=== PATIENT | female | born 1945 | race Caucasian/White ===

== ENCOUNTER → 2023-07-10 06:28 | Day surgery (SDC) | payer MEDICARE, BC, SELFPAY | LOC: GI 06:28 | PROVIDERS: ATTENDING PHYSICIAN Internal Medicine | DX: K29.50 Unspecified chronic gastritis without bleeding (principal); K22.89 Other specified disease of esophagus; K44.9 Diaphragmatic hernia without obstruction or gangrene; K31.7 Polyp of stomach and duodenum; K31.89 Other diseases of stomach and duodenum; R10.13 Epigastric pain | CPT/HCPCS: 43239; 88305; 88342 ==

== ENCOUNTER 2023-07-12 15:32 | Inpatient (IN) | payer MEDICARE, BC, SELFPAY ==
[2023-07-12] VITALS (15 sets, daily range): BP systolic 100–164; BP diastolic 59–115; BMI 33.8; BMI 33.1
--- NOTE | 2023-07-12 12:53 | ED.GENMED ---
History of Present Illness
General
Chief Complaint: Heart Rate Problem
Source: patient and family
Exam Limitations: none
Time Seen by Provider: 07/12/23 12:46
Nursing documentation reviewed up to this point in time: agreed with
Travel History
Have you had any contact with someone who has COVID-19?: No
Do you have any symptoms of coronavirus? Fever > 100 degrees, chills, cough, shortness of breath, sore throat, loss of taste or smell, muscle aches, or headache?: No
History of Present Illness
History of Present Illness:
78-year-old female pacemaker A-fib on Eliquis COPD as needed home oxygen recent upper endoscopy was off her Eliquis for 5 days next day developed cough fever [place] PCP office was febrile rapid A-fib pulse ox 88% referred here
Past History
Past History
ED Past Medical History: Arrthythmia (Paroxysmal atrial fibrillation), CHF, COPD, CVA (with L facial droop, garbled speech), GERD, HTN, Hypercholesterolemia, Psychiatric (Anxiety, Depression) and Other (Hepatic cyst resection, bile duct leak,
pleural effusion, spinal stenosis, osteopenia, adrenal adenoma, skin cancer, Pneumonia)
ED Past Surgical History: Cholecystectomy, Gynecological and Other (liver cyst removed with portion of liver removed, Pancreatic stents)
Social History
Tobacco: Former smoker
Alcohol: Occasional
Drug: None
Personal:
Living: with family
Employment: Retired
Family History
Family History: Other (Noncontributory)
Review of Systems
Review of Systems
All Other Systems: Not applicable
Constitutional: Reports fever and fatigue
Respiratory: Reports cough and trouble breathing
Cardiac: Reports palpitations
: Reports no symptoms
Musculoskeletal: Reports no symptoms
Skin: Reports no symptoms
Neurological: Reports weakness
Phy Exam
Physical Exam
Physical Exam:
Physical Exam
General: 78-year-old female, ill-appearing coughing tachycardia
Neck: Without jaundice
Heart: Tachycardic
Lungs: Bilaterally rhonchi
Abdomen: Nontender
Neuro: alert and oriented. no focal neurological deficits
Skin: no rash
Psychiatric: well kept. interactive and cooperative
Extremities: no edema. no calf tenderness.
Course
Orders/Labs/Results
Orders:
Orders
07/12/23 12:12
EKG [Electrocardiogram (*1)] Urgent
Reason for Study: Tachycardia
EKG- Treatment ONCE
07/12/23 12:51
Acetaminophen [Tylenol] 650 mg PO NOW STA
Diltiazem HCl [Cardizem] 10 mg IV NOW STA
07/12/23 12:52
Cardiac Monitoring- Treatment ONCE
07/12/23 13:00
Diltiazem 125 mg/125 ml Nss [Cardizem] 125 mg in 125 ml IV PER PROTOCOL
Initial dose in mg/hr, then titrate:: 5
Titrate to keep:: Heart rate 80-100 bpm
Titrate by mg/hr:: 5 mg/hr
Frequency of titrations (minutes):: 15
Maximum dose in mg/hr:: 15
07/12/23 13:07
Complete Blood Count/With Diff Urgent
Comprehensive Metabolic Panel Urgent
Lactic Acid Q4H
Comment: CANCEL 2nd LACTIC ACID IF 1st LACTIC ACID IS LESS THAN 2
Blood Culture Q30M
SVITLANA Source: Blood/Venous
Specimen Description:
07/12/23 13:24
CR Chest Portable - 1 View Urgent
Comment:
Reason For Exam: sob fever hr up
Reason Study Needs to be Portable: Patient Unstable
07/12/23 13:26
Blood Culture Q30M
SVITLANA Source: Blood/Venous
Specimen Description:
07/12/23 13:45
0.9% Sodium Chloride 1000 ml [Nss] 1,000 ml IV BOLUS
Piperacillin/Tazo 3.375 Gram [Zosyn] 3.375 gram in 50 ml IV NOW
07/12/23 17:00
Lactic Acid Q4H
Comment: CANCEL 2nd LACTIC ACID IF 1st LACTIC ACID IS LESS THAN 2
Abnormal Lab Results
07/12/23
13:07
WBC 16.2 H 10^3/uL
(4.8-10.8)
MCHC 32.5 L g/dL
(33.0-37.0)
RDW 14.8 H %
(11.5-14.5)
Abs Immat Gran (auto) 0.1 H 10^3/uL
(0-0.05)
Absolute Neuts (auto) 14.2 H 10^3/uL
(1.4-6.5)
Absolute Lymphs (auto) 0.8 L 10^3/uL
(1.2-3.4)
Absolute Monos (auto) 1.0 H 10^3/uL
(0.1-0.6)
Neutrophils % 87.6 H %
(42.2-75.2)
Lymphocytes % 4.9 L %
(20.5-51.1)
Sodium 134 L mmol/L
(135-145)
Glucose 111 H mg/dl
(70-99)
Alkaline Phosphatase 192 H U/L
(38-126)
07/12/23 13:07
07/12/23 13:07
Vital Signs
Initial and Last Documented VS:
Initial Vital Signs
Temp Pulse Resp BP Pulse Ox
99.5 F 144 18 164/113 91
07/12/23 12:08 07/12/23 12:08 07/12/23 12:08 07/12/23 12:08 07/12/23 12:08
Last Documented Vital Signs
Temp Pulse Resp BP Pulse Ox
99.5 F 121 22 124/85 97
07/12/23 12:08 07/12/23 13:25 07/12/23 13:25 07/12/23 13:25 07/12/23 12:36
MDM/Problems Addressed
Differential Diagnosis Includes:
Pneumonia bronchitis rapid A-fib aspiration heart failure
MDM/Problems Addressed:
Shortness of breath cough fever
Chronic conditions affecting care: Arrhythmia and COPD
Acute Exacerbation and/or Progression of Chronic Illness: Arrhythmia and COPD
*Radiology
Radiology exam reviewed: preliminary read by ED provider
*Pulse Oximetry
Patient hypoxic: yes
*EKG
Interpreted by ED Provider?: Yes
Interpretation: abnormal
Comparison EKG: changes noted
Heart Rate: 128
Rate: tachycardiac
Rhythm: a-fib
Ischemia: non-specific ST changes
*[employer] Interpretation
Rate: tachycardiac
Interpretation: abnormal
Heart Rate: 128
Rhythm: a-fib
*Critical Care Note
Total Time (30-74mins, 75-104mins- exclusive of procedures): 30
Update Note
Update Note:
1:50 PM labs noted chest x-ray noted we will start IV antibiotics cultures have been ordered IV Cardizem has been ordered will require admission
Age hypoxia potential for decompensation
CRITICAL CARE STATEMENT: A total of 30 minutes of critical care time was provided for this patient. This includes management of unstable vital signs, evaluation of the patient at bedside, reviewing the patient's pertinent medical records discussion
with EMS providers and patient's family in addition to discussion with consultants, review of old EKGs and review of pertinent medical records. This time with separate from time utilized to perform the aforementioned documented procedures
ED Attending Note
-
Portions of this chart may have been created with voice recognition software.� Occasional wrong word or��sound alike� substitutions may have occurred due to the inherent limitations of voice recognition software.
Discharge Plan
Departure
Patient Disposition: Admit
Date of Disposition: 07/12/23
Time of Disposition: 13:48
Admit to: Telemetry
Presentation/result/management discussed w/ accepting MD/DO: Hospitalist
Patient with high blood pressure during this ER visit?: No
Condition: Fair
Covid-19: Not Applicable
Discharge Problem:
A-fib, Aspiration pneumonitis
Prescriptions:
No Action
clonazepam 0.5 MG tablet
0.5 mg PO HS
Patient Comments:
04/12/2022: last filled 03/29/22, 30 tabs for 30 days from [facility]
potassium chloride 10 MEQ tablet,ER particles/crystals
10 meq PO BID
atorvastatin 20 MG tablet
20 mg PO DAILY
cholecalciferol (vitamin D3) 1,000 UNITS tablet
1,000 units PO DAILY
calcium carbonate [Antacid (calcium carbonate)] 1 TABLET tablet,chewable
1 tab PO DAILY
acetaminophen [Acetaminophen Extra Strength] 500 mg Tablet
500 mg PO Q6H PRN (Reason: back pain)
famotidine 20 mg Tablet
20 mg PO BID
iron 18 mg Tablet
54 mg PO DAILY
Patient Comments:
time release
Probiotic 15 billion cell Capsule
1 cap PO DAILY
apixaban 5 mg Tablet
5 mg PO BID
gabapentin 300 mg capsule
300 mg PO QID
diltiazem HCl 120 mg capsule,extended release 24hr
120 mg PO DAILY
escitalopram oxalate 20 mg tablet
10 mg PO HS
Spiriva Respimat 2.5 mcg/actuation Mist
2 inh INHALATION R DAILY
Patient Comments:
04/12/2022: Pt was changed from Stiolto Respimat today.
furosemide 20 MG tablet
80 mg PO DAILY
Rx Instructions:
NEW DOSE
levalbuterol tartrate 45 mcg/actuation Hfa Aerosol Inhaler
1 puff INHALATION Q6H PRN (Reason: sob)
metoprolol tartrate 25 mg tablet
25 mg PO DAILY
Interventions
Interventions:
*Risk Screen - Suicide Last Done: 07/12/23 12:08
*General Assessment Last Done: 07/12/23 12:08
*Neglect/Abuse Screening Last Done: 07/12/23 12:08
ED- Fall Risk Assessment Last Done: 07/12/23 13:20
*ED COVID-19 Vaccine History Last Done: 07/12/23 12:08
ED- Cardiac Assessment Last Done: 07/12/23 13:20
ED- Pulmonary Assessment Last Done: 07/12/23 13:20
[2023-07-12] MEDS: TYLENOL 650 MG PO (12:56)
[2023-07-12] MEDS: CARDIZEM 10 MG IV (13:01)
[2023-07-12] MEDS: CARDIZEM 125 IV ×2 (13:06→23:38)
[2023-07-12 13:17] LABS: % Basophils 0.5 % (0-2); % Eosinophils 0.1 % (0-6); % Immature Granulocytes 0.5 % (0-0.5); % Lymphocytes 4.9 % (20.5-51.1); % Monocytes 6.4 % (1.7-9.3); % Neutrophils 87.6 % (42.2-75.2); Absolute Basophils 0.1 10^3/uL (0-0.2); Absolute Immature Granulocytes 0.1 10^3/uL (0-0.05); Absolute Lymphocytes 0.8 10^3/uL (1.2-3.4); Absolute Neutrophils 14.2 10^3/uL (1.4-6.5); Hematocrit 43.7 % (37.0-47.0); Hemoglobin 14.2 g/dL (12.0-16.0); Mean Corp Hgb Conc. 32.5 g/dL (33.0-37.0); Mean Platelet Volume 9.3 fL (7.4-10.4); Nucleated Red Blood Cells % 0 %; Platelet Count 228 10^3/uL (130-400); Red Blood Cell Count 5.08 10^6/uL (4.20-5.40); Red Cell Dist. Width 14.8 % (11.5-14.5); White Blood Cell Count 16.2 10^3/uL (4.8-10.8)
[2023-07-12 13:31] LABS: Lactic Acid 1.2 mmol/L (0.7-2.0)
[2023-07-12 13:32] LABS: ALT (SGPT) 23 U/L (0-35); AST (SGOT) 35 U/L (14-36); Albumin 3.9 g/dl (3.5-5.0); Alkaline Phosphatase 192 U/L (38-126); Blood Urea Nitrogen 11 mg/dl (7-17); Calcium 8.7 mg/dl (8.4-10.2); Carbon Dioxide 30 mmol/L (22-30); Chloride 100 mmol/L (98-107); Estimated Creatinine Clearance 56 ml/min; Glucose 111 mg/dl (70-99); Potassium 3.6 mmol/L (3.5-5.1); Sodium 134 mmol/L (135-145); Total Bilirubin 1.2 mg/dl (0.2-1.3); Total Protein 7.1 g/dl (6.3-8.2); eGFR > 60.00
[2023-07-12] MEDS: ZOSYN 50 IV (13:58)
[2023-07-12] MEDS: NSS 1000 IV (13:58)
--- NOTE | 2023-07-12 14:44 | HPS.HSE ---
Addendum entered and electronically signed by Ronald Vargas MD 07/12/23 16:13:
78-year-old female with a past medical history of atrial fibrillation on Eliquis, COPD requiring 2 L of oxygen at night, diastolic CHF, hypertension, CVA, gastroesophageal reflux disease, and anxiety/depression was sent by her PCP for rapid atrial
fibrillation. Patient went to her PCP today for persistent cough that was productive of yellow to dark brown sputum. Associate symptoms include low-grade fever, headache.
She does have a leukocytosis, with low-grade fever.
Portable chest x-ray in the ER is negative. She is COVID-negative, influenza negative.
Will check two-view chest x-ray, procalcitonin, sputum culture and Gram stain.
Her heart rate has improved on Cardizem drip.
Appreciate cardiology input, recommend continuing her Lopressor.
I have personally seen and examined the patient, and agree with the plan of care as documented by FINN Alcala.
Advance care planning discussed, patient is a full code.
All other issues as outlined by the advanced care practitioner.
Total time spent to see the patient on the floor, examine the patient, review data and lab results, discuss treatment plan with patient, nursing staff around 75 minutes.
Original Note:
Family Physician
-
Family Physician: FINN Ma
Chief Complaint
-
cough
fever
History of Present Illness
78-year-old with past medical history for paroxysmal A-fib, CHF, COPD, CVA, GERD, hypertension, hyperlipidemia, anxiety, depression presented to us with cough associated with fever, generalized weakness since yesterday. Patient could not sleep last
night due to the cough. It was a constant productive cough with yellowish to dark brown sputum. Stated some headache. She had a low-grade temp of 99 at home. Denied chest pain or short of breath. Patient denied any dizzy or syncopal episode.
Patient denied any palpitation. Patient denied any abdominal pain, nausea, vomiting. She stated multiple episodes of diarrhea yesterday. Denied dysuria hematuria.
On arrival patient was noted in A-fib with RVR. Initiated on Cardizem. Chest x-ray with no acute disease. Noted elevated WBCs patient is initiated on IV antibiotics. Admitting for further management
Medical History
Past Medical History
Past Medical History: Reports Other
Additional Past Medical History:
paroxysmal atrial fibrillation
, possible sick sinus syndrome,
CHF
, COPD on 2 L of oxygen,
CVA
hypertension
GERD
hypercholesteremia
anxiety/depression
spinal stenosis
adrenal adenoma
skin cancer,
GI bleeding/gastric ulcer
Past Surgical History: Reports Other
Additional Past Surgical History:
Cholecystectomy
Liver cyst removed
Pancreatic stents
Cardiac ablation
Social History
Tobacco: Former Smoker
Alcohol: Occasional
Drug: None
Personal: Single
Living: Alone
Family History
Family History: Not pertinent
Allergies / Home Medications
Allergies reflects when Allergies were last updated in [facility].
Home Medications with original date entered in [facility]
Allergy/Medication List:
Allergies
Allergy/AdvReac Type Severity Reaction Status Date / Time
adhesive Allergy Rash Verified 07/12/23 12:08
alendronate sodium Allergy Shortness Verified 07/12/23 12:08
[From Fosamax] of
Breath/CHEST
PAIN
propafenone Allergy Unknown Verified 07/12/23 12:08
Home Medications
clonazepam 0.5 mg tablet 0.5 mg PO HS Mental Health/Anxiety 09/12/18
potassium chloride 10 mEq tablet,extended release(part/cryst) 10 meq PO BID Electrolyte Repletion 09/12/18
atorvastatin 20 mg tablet 20 mg PO QPM High cholesterol 10/27/21
calcium carbonate 200 mg calcium (500 mg) chewable tablet (Antacid (calcium carbonate)) 2 tab PO BID@0800,1730 Supplement 10/27/21
cholecalciferol (vitamin D3) 25 mcg (1,000 unit) tablet 1,000 units PO DAILY Supplement 10/27/21
Lactobacillus acidophilus and rhamnosus 15 billion cell capsule (Probiotic) 1 cap PO DAILY Supplement 01/02/22
acetaminophen 500 mg tablet (Acetaminophen Extra Strength) 500 mg PO Q6H PRN back pain 01/02/22
famotidine 20 mg tablet 20 mg PO BID Gastrointestinal issue 01/02/22
iron 18 mg tablet 54 mg PO DAILY Supplement 01/02/22
apixaban 5 mg tablet 5 mg PO BID Blood clot prevention/tx 02/12/22
diltiazem HCl 120 mg capsule,extended release 24 hr 120 mg PO DAILY Arrhythmia 04/12/22
furosemide 20 mg tablet 80 mg PO DAILY Fluid retention/Swelling 04/12/22
gabapentin 300 mg capsule 600 mg PO HS Pain 04/12/22
tiotropium bromide 2.5 mcg/actuation mist for inhalation (Spiriva Respimat) 2 inh inhalation R DAILY Lung/breathing issues 04/12/22
escitalopram oxalate 10 mg tablet 10 mg PO DAILY 07/12/23
levalbuterol tartrate 45 mcg/actuation aerosol inhaler 2 puff inhalation R Q6 PRN sob/wheezing 07/12/23
metoprolol tartrate 25 mg tablet 25 mg PO DAILY 07/12/23
varenicline 0.03 mg/spray nasal spray (Tyrvaya) 1 spray intranasal DAILY 07/12/23
Review of Systems
-
Constitutional: Reports No Symptoms and Fever
EENT: Reports No Symptoms
Respiratory: Reports Cough (Productive with dark brown sputum)
Cardiac: Reports No Symptoms
Abdomen/GI: Reports No Symptoms
: Reports No Symptoms
Musculoskeletal: Reports No Symptoms
Skin: Reports No Symptoms
Neurological: Reports No Symptoms
Endocrine: Reports No Symptoms
Hematologic/Lymphatic: Reports No Symptoms
Psych: Reports No Symptoms
Physical Exam
Vital Signs
Vital Signs
Temp Pulse Resp BP Pulse Ox
99.5 F 112 22 116/78 97
07/12/23 12:08 07/12/23 14:20 07/12/23 14:20 07/12/23 14:20 07/12/23 12:36
Physical Exam
General: Well Developed, Well Nourished and No Apparent Distress
HEENT: NormoCephalic, Moist mucous membranes and Atraumatic
Respiratory: Rhonchi
Cardiac: Irregular Rhythm and Tachycardia; No Murmur or Rub
GI: Soft, Non Tender, Non Distended and Normal Bowel Sounds; No Organomegaly
Rectal: Deferred by Provider
Musculoskeletal: No Clubbing, No Cyanosis and No Edema
Skin: No Rash
Neuro: AO x 3 and Nonfocal/grossly intact
Psych: Calm
Laboratory Results
-
07/12/23 13:07
07/12/23 13:07
Laboratory Results
Lactic Acid Cancelled 07/12/23 17:00
Total Bilirubin 1.2 mg/dl (0.2-1.3) 07/12/23 13:07
AST 35 U/L (14-36) 07/12/23 13:07
ALT 23 U/L (0-35) 07/12/23 13:07
Alkaline Phosphatase 192 U/L (38-126) H 07/12/23 13:07
Data Reviewed
-
Diagnostic Radiology: Report Reviewed by me
Lab Data: Labs Reviewed by me
Impression/Plan
-
# Fever/cough likely aspiration pneumonitis/acute on chronic respiratory failure from COPD
-Patient noted any COPD exacerbation
-She was 88 on room air
-At present requiring 2 L of oxygen
-She uses 2 L of oxygen as needed at home
-WBC 16.2
-Chest x-ray with no acute cardiopulmonary process
-Blood culture sent from ER
-Received Zosyn in ER
-Will monitor off antibiotics
-Obtain Pro-Nas
-ipratropium bid ad zopinex bid
-Speech consulted
-PT/OT consulted
# Atrial flutter with RVR
-EKG with a flutter with variable AV block, nonspecific ST and T wave abnormality. Atrial flutter with RVR status post cardioversion� in ER and subsequently admitted
#Post Cardioversion Pauses secondary to sick sinus syndrome>> now status post permanent pacemaker
-Eliquis continued
-Cardizem drip continued
-Metoprolol continued
-Cardiology consulted
#History of HFpEF
-Continue Lasix
#COPD
-Baseline 2 L of oxygen
#GERD
-PPI continued
Hyperlipidemia
-Continue statin
Anxiety/depression
-Continue clonazepam
-Continue Lexapro
Spinal stenosis
-Continue gabapentin
Full code
DVT prophylaxis�Eliquis
[2023-07-12 15:40] LABS: COVID-19 Antigen Negative (Negative)
--- NOTE | 2023-07-12 15:50 | CON.CAR ---
Addendum entered and electronically signed by Lobo Suárez MD 07/12/23 16:48:
I saw and examined the patient.
The [employer]'s note was reviewed and I agree with the note.
Comment: 78 yo female with chronic heart failure with preserved EF, hypertension, prior CVA 2016 (She had been off anticoagulation for a period of time during her hospitalizations at [place]), chronic lower extremity edema, persistent atrial
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
by PCP for Afib. She had recent EGD and Eliquis hold, but back on. She has no symptoms of palptitations. ECG with atrial flutter with rvr. On exam irreg irreg rhythm no m/r/g, lungs cta, ext warm. Will continue dilt gtt and transiton to po in
am, if no spontaneous conversion to sinus with offer cardioversion. Will need to interrogate device to determine timing in relation to Eliquis hold. May need GUILLERMO.
Original Note:
Consultation
Consultation Request
Date/Time Consultation Requested: 07/12/23 3:30p
Date/Time Consultation Performed: 07/12/23 3:45p
Requesting Provider: FINN Alcala
Performing Provider: FINN Mas for Dr. Suárez
Reason for Consultation: rapid Afib/flutter
Medical History
-
Chief Complaint: coughing, Afib
History of Present Illness:
Mrs. Rincon is an 78 yo female with chronic heart failure with preserved EF, hypertension, prior CVA 2016 (She had been off anticoagulation for a period of time during her hospitalizations at [place]), chronic lower extremity edema, persistent
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
Afib. She was seen by her PCP today for these complaints and was noted to be in rapid Afib and was sent to the ER. EKG in the ER shows Aflutter 127 bpm. She is admitted to the hospitalist service with leukocytosis and we are consulted for rapid
Afib. She is on a cardizem drip and now rate controlled Afib. She typically takes Eliquis though just had an EGD on 07/10/[address] Alcantara, so she held her Eliquis since 07/06/23.
Past Medical History
Past Medical History: Other ( as above)
Past Surgical History: Cardiac (ppm)
Social History
Tobacco: Non-Smoker
Alcohol: None
Family History
Family History: Reviewed & Not Pertinent
Allergies / Home Medications
Allergy/AdvReac Type Severity Reaction Status Date / Time
adhesive Allergy Rash Verified 07/12/23 12:08
alendronate sodium Allergy Shortness Verified 07/12/23 12:08
[From Fosamax] of
Breath/CHEST
PAIN
propafenone Allergy Unknown Verified 07/12/23 12:08
Medication Instructions Recorded Confirmed Type
clonazepam 0.5 mg tablet 0.5 mg PO HS Mental Health/Anxiety 09/12/18 07/12/23 History
potassium chloride 10 mEq 10 meq PO BID Electrolyte Repletion 09/12/18 07/12/23 History
tablet,extended release(part/cryst)
atorvastatin 20 mg tablet 20 mg PO QPM High cholesterol 10/27/21 07/12/23 History
calcium carbonate 200 mg calcium 2 tab PO BID@0800,1730 Supplement 10/27/21 07/12/23 History
(500 mg) chewable tablet (Antacid
(calcium carbonate))
cholecalciferol (vitamin D3) 25 1,000 units PO DAILY Supplement 10/27/21 07/12/23 History
mcg (1,000 unit) tablet
Lactobacillus acidophilus and 1 cap PO DAILY Supplement 01/02/22 07/12/23 History
rhamnosus 15 billion cell capsule
(Probiotic)
acetaminophen 500 mg tablet 500 mg PO Q6H PRN back pain 01/02/22 07/12/23 History
(Acetaminophen Extra Strength)
famotidine 20 mg tablet 20 mg PO BID Gastrointestinal issue 01/02/22 07/12/23 History
iron 18 mg tablet 54 mg PO DAILY Supplement 01/02/22 07/12/23 History
apixaban 5 mg tablet 5 mg PO BID Blood clot 02/12/22 07/12/23 History
prevention/tx
diltiazem HCl 120 mg 120 mg PO DAILY Arrhythmia 04/12/22 07/12/23 History
capsule,extended release 24 hr
furosemide 20 mg tablet 80 mg PO DAILY Fluid 04/12/22 07/12/23 History
retention/Swelling
gabapentin 300 mg capsule 600 mg PO HS Pain 04/12/22 07/12/23 History
tiotropium bromide 2.5 2 inh inhalation R DAILY 04/12/22 07/12/23 History
mcg/actuation mist for inhalation Lung/breathing issues
(Spiriva Respimat)
escitalopram oxalate 10 mg tablet 10 mg PO DAILY 07/12/23 07/12/23 History
levalbuterol tartrate 45 2 puff inhalation R Q6 PRN 07/12/23 07/12/23 History
mcg/actuation aerosol inhaler sob/wheezing
metoprolol tartrate 25 mg tablet 25 mg PO DAILY 07/12/23 07/12/23 History
varenicline 0.03 mg/spray nasal 1 spray intranasal DAILY 07/12/23 07/12/23 History
spray (Tyrvaya)
Review of Systems
-
History Source: Patient
All other systems: Negative unless noted
Physical Exam
Vital Signs
Temp Pulse Resp BP Pulse Ox
99.5 F 91 20 116/78 97
07/12/23 12:08 07/12/23 15:42 07/12/23 15:42 07/12/23 14:20 07/12/23 12:36
Lab Results
07/12/23 13:07
07/12/23 13:07
Physical Exam
General: Well Developed and Well Nourished
HEENT: Normocephalic and Anicteric
Respiratory: Clear and Non Labored Respirations
Cardiac: S1/S2, Irregular Rhythm and Peripheral Edema (mild b/l LE)
Breast: Deferred by me
GI: Soft and Normal Bowel Sounds
Rectal: Deferred by Provider
Genito-urinary: No Costovertebral Tender
Musculoskeletal: No Clubbing and No Cyanosis
Skin: Warm and Dry
Neuro: AO x 3
Psych: Calm
Impression / Plan
-
Afib/flutter - rapid ventricular response.
- rates improved on IV Cardizem, continue.
- continue outpatient Lopressor 25mg BID.
- continue Eliquis 5mg BID, resumed 07/11/23 (held since 07/06/23 for EGD 07/10/23).
- [facility] to note onset of Afib and burden.
- prior ablation Atach/SVT 01/2022.
- consider GUILLERMO/DCCV Saturday.
Viral illness vs COPD - acute.
- leukocytosis, coughing up mucous.
- CXR NAD.
- per hospitalist.
- follows with Dr. Feliz.
HFpEF - chronic.
- stable on Lasix 80mg daily.
HTN - stable on meds, continue.
Data Reviewed
-
EKG: Tracing Personally Visualized and interpreted
Radiology: Report Reviewed by me
Medical Tests (Nuc Med, Echo etc): Report Reviewed by me (echo 09/2021: normal LVEF, moderate PHTN, pasp 55mmHg.)
Labs: Labs Reviewed by me
Old Records: Reviewed
[2023-07-12 16:27] LABS: Procalcitonin 0.14 ng/ml (0.0-0.25)
[2023-07-12] MEDS: LIPITOR 20 MG PO (18:09)
[2023-07-12] MEDS: TUMS PO (18:10)
[2023-07-12] MEDS: PEPCID 20 MG PO (20:24)
[2023-07-12] MEDS: KCL 10 MEQ PO (20:24)
[2023-07-12] MEDS: ELIQUIS 5 MG PO (20:24)
[2023-07-12] MEDS: LOPRESSOR 25 MG PO (20:24)
[2023-07-12] MEDS: XOPENEX 1.25 MG INHALANT SOLUTION INH (21:36)
[2023-07-12] MEDS: ATROVENT NEBULES 0.5 MG INH (21:36)
[2023-07-12] MEDS: KLONOPIN 0.5 MG PO (22:45)
[2023-07-12] MEDS: NEURONTIN 600 MG PO (22:45)
--- NOTE | 2023-07-12 23:10 | PTCARENOTE ---
Pt rec'd at change of shift awake,alert no c/o pain. Coarse breath sounds with exp wheeze throughout. o2 at 2 lit n/c continued. Pt reports having loose stool at change of shift, daughter had helped her in bathroom. pt made aware of need to obtain
stool and rsp cultures.
collection hat placed in bathroom. Pt remains afib/flutter on Cardizem gtt at 10 mg/hr. call alexandre within reach.
[2023-07-13] VITALS (15 sets, daily range): BP systolic 82–119; BP diastolic 51–99; PULSE 65; O2SAT 94; BMI 33.1
--- NOTE | 2023-07-13 05:16 | PTCARENOTE ---
No bm's since beginning of shift. Pt aware of need for stool and urine specimen. Pt reports sleeping on and off minimal coughing noted.
afib on telemetry
[2023-07-13 05:37] LABS: Hematocrit 38.6 % (37.0-47.0); Hemoglobin 12.6 g/dL (12.0-16.0); Mean Corp Hgb Conc. 32.6 g/dL (33.0-37.0); Mean Corpuscular Hgb 28.5 pg (27.0-31.0); Mean Corpuscular Volume 87.3 fL (81.0-99.0); Mean Platelet Volume 9.8 fL (7.4-10.4); Platelet Count 214 10^3/uL (130-400); Red Blood Cell Count 4.42 10^6/uL (4.20-5.40); Red Cell Dist. Width 14.9 % (11.5-14.5); White Blood Cell Count 14.3 10^3/uL (4.8-10.8)
[2023-07-13 05:54] LABS: Blood Urea Nitrogen 12 mg/dl (7-17); Carbon Dioxide 30 mmol/L (22-30); Chloride 104 mmol/L (98-107); Estimated Creatinine Clearance 62 ml/min; Glucose 83 mg/dl (70-99); Potassium 3.2 mmol/L (3.5-5.1); Sodium 137 mmol/L (135-145); eGFR > 60.00
[2023-07-13] MEDS: XOPENEX 1.25 MG INHALANT SOLUTION INH ×3 (07:42→19:44)
[2023-07-13] MEDS: ATROVENT NEBULES 0.5 MG INH ×3 (07:42→19:44)
[2023-07-13] MEDS: TUMS PO (08:24)
[2023-07-13] MEDS: FEOSOL 325 MG PO (08:25)
[2023-07-13] MEDS: KCL 10 MEQ PO ×2 (08:25→19:38)
[2023-07-13] MEDS: LASIX 80 MG PO (08:25)
[2023-07-13] MEDS: LOPRESSOR 25 MG PO ×2 (08:25→20:26)
[2023-07-13] MEDS: PEPCID 20 MG PO ×2 (08:25→19:39)
[2023-07-13] MEDS: LEXAPRO 10 MG PO (08:25)
[2023-07-13] MEDS: ELIQUIS 5 MG PO ×2 (08:25→19:38)
--- NOTE | 2023-07-13 08:32 | W.PN.CD ---
Addendum entered and electronically signed by Lobo Suárez MD 07/13/23 12:41:
[facility] shows 51 hours during eliquis hold for EGD, now in it for the last 3 days. Will need charity/dccv saturday if still in rhythm will add to schedule and make NPO p midnight.
Original Note:
Today's Communication / Plan
-
transition to po diltiazem
[facility] for onset of fib
may need dccv +/- charity on Saturday
Impression / Plan
-
Afib/flutter - rapid ventricular response.
- rates improved on IV Cardizem, tranistion to 60mg qid which will be an increase of her home 120mg daily dose
- continue outpatient Lopressor 25mg BID.
- continue Eliquis 5mg BID, resumed 07/11/23 (held since 07/06/23 for EGD 07/10/23).
- [facility] to note onset of Afib and burden.
- prior ablation Atach/SVT 01/2022.
- consider DCCV +/-CHARITY Saturday.
HFpEF - chronic.
- stable on Lasix 80mg daily.
Viral illness vs COPD - acute.
-quite rhoncherous and wheezy today
- leukocytosis, coughing up mucous.
- per hospitalist.
- follows with Dr. Feliz.
HTN - stable on meds, continue.
Subjective
No palps or cp, +cough productive of sputum, feels jittery after neb
Physical Exam
Vital Signs/Labs
Vital Signs
Temp Pulse Resp BP Pulse Ox
98.0 F 105 16 111/99 95
07/13/23 07:09 07/13/23 08:25 07/13/23 07:45 07/13/23 08:25 07/13/23 07:45
07/12/23 07/13/23 07/14/23
06:59 06:59 06:59
Actual Weight 90.3 kg
07/13/23 04:59
07/13/23 04:59
Physical Exam
Constitutional: No acute distress
Cardiovascular: Pedal edema is absent, JVD pressure is normal, Systolic murmur absent, Diastolic murmur absent and Rhythm/rate is irregular
Respiratory: Respiratory effort normal, Wheeze Present and Rhonchi Present
GI: Soft
Neuro/Psych: AO x 3
Data Reviewed
-
Date of Service: July 13, 2023
EKG: Other (tele af with rate control)
Medical Tests (PFT, Pathology etc): Discussed with Physician (transition to po dilt, may need cardioversion saturday) and Discussed with Nurse (Marly stop dilt ggt 1 hour after po dose)
--- NOTE | 2023-07-13 09:19 | PTCARENOTE ---
Addendum entered by Marly Wang RN 07/13/23 09:42:
K 3.2 supplemented as ordered.
Original Note:
urine and stool sent to lab as ordered.D/C'd IV Cardizem drip as per ordered and po Cardizem started.
[2023-07-13] MEDS: CARDIZEM 60 MG PO ×4 (09:25→22:10)
[2023-07-13] MEDS: KCL 40 MEQ PO ×2 (09:41→17:40)
[2023-07-13 10:40] LABS: Urine Albumin Trace (Neg - Trace); Urine Bilirubin 1+ (Negative); Urine Character Clear (Clear); Urine Color Yellow; Urine Glucose Negative (Negative); Urine Ketone Negative (Negative); Urine Leukocyte Trace (Negative); Urine Nitrite Negative (Negative); Urine Occult Blood Negative (Negative); Urine Specific Gravity 1.015 (<1.030); Urine Urobilinogen 3+ (Neg - 1+)
[2023-07-13 11:22] LABS: Urine Amorphous Seen; Urine Mucus Few
[2023-07-13 11:23] LABS: Urine Urothelial Cell 0-2 /LPF (FEW)
[2023-07-13 11:24] LABS: Urine Bacteria Few (Negative); Urine Red Blood Cell 0-2 /HPF (0-2)
--- NOTE | 2023-07-13 14:20 | W.PN.HOSP.TC ---
Today's Communication/Plan
-
see bold
Assessment / Plan
Assessment / Plan
HPI: 78-year-old female with a past medical history of atrial fibrillation on Eliquis, COPD requiring 2 L of oxygen at night, diastolic CHF, hypertension, CVA, gastroesophageal reflux disease, and anxiety/depression was sent by her PCP for rapid
atrial fibrillation.� Patient went to her PCP today for persistent cough that was productive of yellow to dark brown sputum.� Associate symptoms include low-grade fever, headache.
#Rapid atrial flutter
Appreciate cardiology input, status post IV diltiazem
Changed to oral diltiazem today, continue metoprolol tartrate 25 mg twice a day
Continue Eliquis, for possible cardioversion on Saturday
#Acute bronchitis
Chest x-ray negative, influenza negative, COVID-negative
Status post Zosyn in the ER
Procalcitonin negative, monitor off of antibiotics
Continue cough meds prn, supportive care
#Hypokalemia
Replete, recheck a.m. potassium and magnesium
#History of HFpEF
-Continue Lasix, monitor daily weights, strict I's and O's
#COPD
-Baseline 2 L of oxygen
#GERD
-PPI continued
Hyperlipidemia
-Continue statin
Anxiety/depression
-Continue clonazepam
-Continue Lexapro
Spinal stenosis
-Continue gabapentin
DVT prophylaxis�Eliquis
Full Code
Physical Exam
General: Apepars to not feel well, obese, no acute distress
HEENT: Normocephalic, Atraumatic, EOMI, MMM
Respiratory: Bibasilar crackles
Cardiac: Normal S1/S2, Regular Rate, irregularly irregular rhythm
GI: Soft, Nontender, Nondistended, Normal Bowel Sounds
Extremities: No Clubbing, Cyanosis, or Edema
Anticipated Discharge: > 48 hours
Subjective/Interval History
-
Date of Service: July 13, 2023
Fever resolved. Patient continues to have a productive cough.
Objective Data
-
Labs:
Laboratory Results
07/13/23
04:59
WBC 14.3 H
Hgb 12.6
Hct 38.6
Plt Count 214
Sodium 137
Potassium 3.2 L
Chloride 104
Carbon Dioxide 30
BUN 12
Creatinine 0.8
Glucose 83
Calcium 8.0 L
Vital Signs:
Vital Signs
Temp Pulse Resp BP Pulse Ox
98.7 F 75 16 112/93 94
07/13/23 11:02 07/13/23 14:15 07/13/23 14:15 07/13/23 13:48 07/13/23 14:15
I&O
07/12/23 07/13/23 07/14/23
06:59 06:59 06:59
Output Total 350 / 350 200 / 200
Balance -350 / -350 -200 / -200
[2023-07-13] MEDS: LIPITOR 20 MG PO (17:40)
[2023-07-13] MEDS: TUMS 2 TABLET PO (17:41)
--- NOTE | 2023-07-13 18:09 | PTCARENOTE ---
pt continues to be Afib/ paced on the monitor, HR in the 80s, VSS. Pt offers no complaints at this time. Pt has been ambulating in the room with no issues. pt educated on plan of care for the night and pt verbalized understanding. call alexandre within
reach.
--- NOTE | 2023-07-13 21:21 | PTCARENOTE ---
Received pt at handoff. AOX3. Tele- Afib/flutter. HR 70-80s. Assessment noted as documented. Pt w/ exp wheeze and coarse t/o. Pt sating at 95-97% on 2L O2 nasal cannula. Offers no complaints at this time. Pt educated on plan of care. Verbalizes
understanding. Pt currently in bed; call alexandre w/in reach.
[2023-07-13] MEDS: NEURONTIN 600 MG PO (22:09)
[2023-07-13] MEDS: KLONOPIN 0.5 MG PO (22:09)
[2023-07-14 03:56] VITALS: BP 104/68
[2023-07-14 04:37] LABS: Hematocrit 35.9 % (37.0-47.0); Hemoglobin 11.8 g/dL (12.0-16.0); Mean Corp Hgb Conc. 32.9 g/dL (33.0-37.0); Mean Corpuscular Hgb 27.7 pg (27.0-31.0); Mean Corpuscular Volume 84.3 fL (81.0-99.0); Mean Platelet Volume 9.7 fL (7.4-10.4); Platelet Count 239 10^3/uL (130-400); Red Blood Cell Count 4.26 10^6/uL (4.20-5.40); Red Cell Dist. Width 15.4 % (11.5-14.5); White Blood Cell Count 10.7 10^3/uL (4.8-10.8)
[2023-07-14 04:59] VITALS: BMI 33.3
[2023-07-14 05:06] LABS: Blood Urea Nitrogen 20 mg/dl (7-17); Calcium 8.6 mg/dl (8.4-10.2); Carbon Dioxide 27 mmol/L (22-30); Chloride 105 mmol/L (98-107); Estimated Creatinine Clearance 56 ml/min; Glucose 85 mg/dl (70-99); Magnesium 2.1 mg/dl (1.6-2.3); Potassium 4.4 mmol/L (3.5-5.1); Sodium 136 mmol/L (135-145); eGFR > 60.00
[2023-07-14] MEDS: XOPENEX 1.25 MG INHALANT SOLUTION INH ×3 (07:56→20:53)
[2023-07-14] MEDS: ATROVENT NEBULES 0.5 MG INH ×3 (07:56→20:53)
[2023-07-14 08:30] VITALS: BP 103/62
--- NOTE | 2023-07-14 09:08 | W.PN.HOSP.TC ---
Today's Communication/Plan
-
For cardioversion tomorrow
Assessment / Plan
Assessment / Plan
HPI: 78-year-old female with a past medical history of atrial fibrillation on Eliquis, COPD requiring 2 L of oxygen at night, diastolic CHF, hypertension, CVA, gastroesophageal reflux disease, and anxiety/depression was sent by her PCP for rapid
atrial fibrillation.� Patient went to her PCP today for persistent cough that was productive of yellow to dark brown sputum.� Associate symptoms include low-grade fever, headache.
#Rapid atrial flutter
Appreciate cardiology input, status post IV diltiazem
Changed to oral diltiazem 07/13, continue metoprolol tartrate 25 mg twice a day
Continue Eliquis, for cardioversion on Saturday
#Acute bronchitis
Chest x-ray negative, influenza negative, COVID-negative
Status post Zosyn in the ER
Procalcitonin negative, leukocytosis resolved without antibiotics
Continue cough meds prn, supportive care
#Hypokalemia
Repleted and resolved, Mg normal
#History of HFpEF
-Continue Lasix, monitor daily weights, strict I's and O's
#COPD
-Baseline 2 L of oxygen
#GERD
-PPI continued
Hyperlipidemia
-Continue statin
Anxiety/depression
-Continue clonazepam
-Continue Lexapro
Spinal stenosis
-Continue gabapentin
DVT prophylaxis�Eliquis
Full Code
Physical Exam
General: Apepars to not feel well, obese, no acute distress
HEENT: Normocephalic, Atraumatic, EOMI, MMM
Respiratory: Bibasilar crackles
Cardiac: Normal S1/S2, Regular Rate, irregularly irregular rhythm
GI: Soft, Nontender, Nondistended, Normal Bowel Sounds
Extremities: No Clubbing, Cyanosis, or Edema
Anticipated Discharge: 24 - 48 hours
Subjective/Interval History
-
Date of Service: July 14, 2023
Fever resolved. Continues to have a persistent cough.
Objective Data
-
Labs:
Laboratory Results
07/14/23
04:09
WBC 10.7
Hgb 11.8 L
Hct 35.9 L
Plt Count 239
Sodium 136
Potassium 4.4 D
Chloride 105
Carbon Dioxide 27
BUN 20 H
Creatinine 0.9
Glucose 85
Calcium 8.6
Vital Signs:
Vital Signs
Temp Pulse Resp BP Pulse Ox
98 F 105 20 104/68 94
07/14/23 08:28 07/14/23 08:17 07/14/23 08:28 07/14/23 03:56 07/14/23 08:28
I&O
07/13/23 07/14/23 07/15/23
06:59 06:59 06:59
Intake Total 720 / 720
Output Total 350 / 350 200 / 200
Balance -350 / -350 520 / 520
[2023-07-14] MEDS: TUMS 2 TABLET PO ×2 (09:23→17:36)
[2023-07-14] MEDS: PEPCID 20 MG PO ×2 (09:24→19:44)
[2023-07-14] MEDS: FEOSOL 325 MG PO (09:24)
[2023-07-14] MEDS: CARDIZEM 60 MG PO ×4 (09:25→22:35)
[2023-07-14] MEDS: LOPRESSOR 25 MG PO ×2 (09:25→19:45)
[2023-07-14] MEDS: ELIQUIS 5 MG PO ×2 (09:25→19:44)
[2023-07-14] MEDS: LEXAPRO 10 MG PO (09:25)
[2023-07-14] MEDS: KCL 10 MEQ PO ×2 (09:25→19:44)
[2023-07-14] MEDS: LASIX 80 MG PO (09:26)
[2023-07-14] MEDS: FLUSH (NSS) 2 FLUSH IV (09:27)
[2023-07-14 11:59] VITALS: BP 107/76
[2023-07-14 15:56] VITALS: BP 104/69
--- NOTE | 2023-07-14 16:38 | W.PN.CD ---
Today's Communication / Plan
-
continue current medications
npo p midnight for charity/dccv
rhythm control options to be d/w Dr Snell
Impression / Plan
-
Afib/flutter - rapid ventricular response.
- rates improved on IV Cardizem, tranistion to 60mg qid which will be an increase of her home 120mg daily dose
-bp tolerating it
- continue outpatient Lopressor 25mg BID.
- continue Eliquis 5mg BID, resumed 07/11/23 (held since 07/06/23 for EGD 07/10/23).
-Review of devices shoes episodes of prolonged fib during hold
- CHARITY/DCCV Saturday.
-NPO after midnight
-Rhythm control give recurrent symptomatic episodes to be discussed with Dr Snell
HFpEF - chronic.
- stable on Lasix 80mg daily.
Viral illness vs COPD - acute.
-quite rhoncherous and wheezy today
- leukocytosis, coughing up mucous.
- per hospitalist.
- follows with Dr. Feliz.
HTN - stable on meds, continue.
Subjective
she is feeling much better no sob
Physical Exam
Vital Signs/Labs
Vital Signs
Temp Pulse Resp BP Pulse Ox
98.3 F 78 20 104/69 94
07/14/23 15:53 07/14/23 16:15 07/14/23 15:53 07/14/23 15:56 07/14/23 15:53
07/13/23 07/14/23 07/15/23
06:59 06:59 06:59
Actual Weight 90.3 kg 90.8 kg
07/14/23 04:09
07/14/23 04:09
Magnesium 2.1 mg/dl (1.6-2.3) 07/14/23 04:09
Physical Exam
Constitutional: No acute distress
Cardiovascular: Pedal edema is absent, JVD pressure is normal, Systolic murmur absent, Diastolic murmur absent and Rhythm/rate is irregular
Respiratory: Respiratory effort normal, Wheeze Absent, Rhonchi Absent and Crackles Present (bibasilar)
Neuro/Psych: AO x 3
Data Reviewed
-
Date of Service: July 14, 2023
EKG: Other (tele fib with intermittent pacing)
Medical Tests (PFT, Pathology etc): Discussed with Patient (Patient daughter at the bedside)
[2023-07-14] MEDS: LIPITOR 20 MG PO (17:35)
[2023-07-14 19:35] VITALS: BP 106/65
[2023-07-14] MEDS: TYLENOL 1000 MG PO (19:44)
[2023-07-14 22:31] VITALS: BP 109/64
[2023-07-14] MEDS: NEURONTIN 600 MG PO (22:35)
[2023-07-14] MEDS: KLONOPIN 0.5 MG PO (22:35)
[2023-07-15] VITALS (8 sets, daily range): BP systolic 99–124; BP diastolic 61–84; BMI 33.0
--- NOTE | 2023-07-15 01:04 | PTCARENOTE ---
Tele monitor shows Afib and occasionally Vpaced. HR in the 60-80's at rest. VSS and sating 95% on 2L w/ and occasional moist cough. Patient aware to remain NPO at midnight for GUILLERMO/ECHO in am. Patient ambulates self in room w/out difficulty. Denies
any chest pain. C/o frontal headache pain, Tylenol administered--see JUL. Call alexandre in reach.
[2023-07-15 05:17] LABS: Hematocrit 38.4 % (37.0-47.0); Hemoglobin 12.3 g/dL (12.0-16.0); Mean Corpuscular Hgb 27.6 pg (27.0-31.0); Mean Corpuscular Volume 86.1 fL (81.0-99.0); Mean Platelet Volume 9.5 fL (7.4-10.4); Platelet Count 254 10^3/uL (130-400); Red Blood Cell Count 4.46 10^6/uL (4.20-5.40); Red Cell Dist. Width 15.3 % (11.5-14.5)
[2023-07-15 05:47] LABS: Blood Urea Nitrogen 21 mg/dl (7-17); Calcium 9.1 mg/dl (8.4-10.2); Carbon Dioxide 28 mmol/L (22-30); Chloride 102 mmol/L (98-107); Estimated Creatinine Clearance 62 ml/min; Glucose 93 mg/dl (70-99); Magnesium 2.2 mg/dl (1.6-2.3); Potassium 4.1 mmol/L (3.5-5.1); Sodium 138 mmol/L (135-145); eGFR > 60.00
[2023-07-15] MEDS: ATROVENT NEBULES 0.5 MG INH ×3 (07:19→19:20)
[2023-07-15] MEDS: XOPENEX 1.25 MG INHALANT SOLUTION INH ×3 (07:19→19:20)
[2023-07-15] MEDS: CARDIZEM 60 MG PO ×4 (07:36→22:36)
[2023-07-15] MEDS: ELIQUIS 5 MG PO ×2 (07:36→20:16)
[2023-07-15] MEDS: LOPRESSOR 25 MG PO ×2 (07:36→20:17)
[2023-07-15] MEDS: KCL 10 MEQ PO ×2 (07:36→20:17)
[2023-07-15] MEDS: PEPCID 20 MG PO ×2 (07:36→20:17)
--- NOTE | 2023-07-15 07:40 | W.PN.HOSP.TC ---
Today's Communication/Plan
-
NPO for cardioversion today
Assessment / Plan
Assessment / Plan
HPI: 78-year-old female with a past medical history of atrial fibrillation on Eliquis, COPD requiring 2 L of oxygen at night, diastolic CHF, hypertension, CVA, gastroesophageal reflux disease, and anxiety/depression was sent by her PCP for rapid
atrial fibrillation.� Patient went to her PCP today for persistent cough that was productive of yellow to dark brown sputum.� Associate symptoms include low-grade fever, headache.
#Rapid atrial flutter
Appreciate cardiology input, status post IV diltiazem
Changed to oral diltiazem 07/13, continue metoprolol tartrate 25 mg twice a day
Continue Eliquis, for cardioversion today
#Acute bronchitis
Chest x-ray negative, influenza negative, COVID-negative
Status post Zosyn in the ER
Procalcitonin negative, leukocytosis resolved without antibiotics
Continue cough meds prn, supportive care
-continue nebs (ipratropium and levalbuterol given RVR)
#Hypokalemia
Repleted and resolved, Mg normal
#History of HFpEF
-Continue oral Lasix, monitor daily weights, strict I's and O's
#COPD
-Baseline 2 L of oxygen
#GERD
-PPI continued
Hyperlipidemia
-Continue statin
Anxiety/depression
-Continue clonazepam
-Continue Lexapro
Spinal stenosis
-Continue gabapentin
DVT prophylaxis�Eliquis
Full Code
Physical Exam
General: Apepars to not feel well, obese, no acute distress
HEENT: Normocephalic, Atraumatic, EOMI, MMM
Respiratory: Bibasilar crackles
Cardiac: Normal S1/S2, Regular Rate, irregularly irregular rhythm
GI: Soft, Nontender, Nondistended, Normal Bowel Sounds
Extremities: No Clubbing, Cyanosis, or Edema
Anticipated Discharge: 24 - 48 hours
Subjective/Interval History
-
Date of Service: July 15, 2023
patient states overall her URI is improving
less congested
denies feeling the afib
overall feels fatigued
Objective Data
-
Labs:
Laboratory Results
07/15/23
04:59
WBC 8.0
Hgb 12.3
Hct 38.4
Plt Count 254
Sodium 138
Potassium 4.1
Chloride 102
Carbon Dioxide 28
BUN 21 H
Creatinine 0.8
Glucose 93
Calcium 9.1
Vital Signs:
Vital Signs
Temp Pulse Resp BP Pulse Ox
97.5 F 89 16 124/84 96
07/15/23 04:51 07/15/23 07:36 07/15/23 07:21 07/15/23 07:36 07/15/23 07:21
I&O
07/14/23 07/15/23 07/16/23
06:59 06:59 06:59
Intake Total 720 / 720 240 / 240
Output Total 200 / 200
Balance 520 / 520 240 / 240
Review of Systems
-
History Source: Patient
All other systems: Reviewed and negative
Physical Exam
-
General: Other (appears fatigued )
Respiratory: Other (cough with inspiration )
Cardiac: S1/S2 and Irregular Rhythm
GI: Soft and Nontender
Musculoskeletal: No Edema
Skin: Warm and Dry; Negative Rash
Neuro: AO x 3
Psych: Calm
Data Reviewed
-
Diagnostic Radiology: Report Reviewed by me
Labs: Labs Reviewed by me
--- NOTE | 2023-07-15 08:12 | W.PN.CD ---
Today's Communication / Plan
-
Reviewed procedure and risks associated with GUILLERMO cardioversion. Patient had issues with symptomatic A-fib and a flutter. Will plan for GUILLERMO cardioversion. May be challenging to maintain her in sinus rhythm. Will assess QTc post cardioversion.
This may limit any antiarrhythmic options.
Continue to optimize treatment of pulmonary issues
Impression / Plan
-
Afib/flutter - rapid ventricular response.
- ate controlled continue current dosing of Cardizem
- continue outpatient Lopressor 25mg BID.
- continue Eliquis 5mg BID, resumed 07/11/23 (held since 07/06/23 for EGD 07/10/23).
-Review of devices shoes episodes of prolonged fib during hold
- GUILLERMO/DCCV 07/15/2023.
-Rhythm control will reassess post cardioversion. Will assess post cardioversion QT. Patient's had some longer QTc's reported on ECG. Sometimes impacted by flutter sometimes impacted by U wave. Will review. This may impact choices for
antiarrhythmic therapy. limit use of
HFpEF - chronic.
- stable on Lasix 80mg daily.
Pacemaker. Medtronic
Viral illness vs COPD - acute.
-Patient on 2 L. Still with some cough with associated wheeze.
- follows with Dr. Feliz.
HTN - stable on meds, continue.
Subjective
Awake alert but just feels tired not complaining of shortness of breath
Physical Exam
Vital Signs/Labs
Vital Signs
Temp Pulse Resp BP Pulse Ox
97.5 F 89 16 124/84 96
07/15/23 04:51 07/15/23 07:36 07/15/23 07:21 07/15/23 07:36 07/15/23 07:21
07/14/23 07/15/23 07/16/23
06:59 06:59 06:59
Actual Weight 90.8 kg 89.9 kg
02/19/24 04:59
07/15/23 04:59
Magnesium 2.2 mg/dl (1.6-2.3) 07/15/23 04:59
Physical Exam
Constitutional: No acute distress
Cardiovascular: Rhythm/rate is irregular
Respiratory: Crackles Absent and Wheeze Present
GI: Soft
Neuro/Psych: Alert
Other: Skin
Data Reviewed
-
Date of Service: July 15, 2023
Medical Decision Making: Reviewed Test Results
EKG: Report Reviewed by me
X-Ray/CT/US/MRI/NUC/PET: Report Reviewed by me
Medical Tests (PFT, Pathology etc): Image Personally Visualized and interpreted
Labs: Labs Reviewed by me
--- NOTE | 2023-07-15 10:09 | PTCARENOTE ---
Rec'd Pt 0958 post GUILLERMO/CV, A,A+O, denies pain. SR on monitor.
[2023-07-15] MEDS: LEXAPRO 10 MG PO (10:59)
[2023-07-15] MEDS: TUMS 2 TABLET PO ×2 (10:59→18:05)
[2023-07-15] MEDS: LASIX 80 MG PO (10:59)
[2023-07-15] MEDS: FEOSOL 325 MG PO (10:59)
--- NOTE | 2023-07-15 14:14 | CM ---
Reviewed chart. Met with Mrs. Pickard to review discharge plans. She states prior to admission she resides alone in a two story home with one step to enter. She states she has a full flight of steps to get to bedroom/full bathroom. She states she
has a powder room on the first floor. She states prior to admission she was independent with ambulation and adls. She states she has hoe 02 a concentrator at home. She states she uses home 02 2/l at night. [facility] services her home 02. She
states she has a rolling walker, single point cane and raised toilet seat at home. She states she has a prescription plan and uses [facility]. We reviewed [facility] and she is agreeable to [facility]. Telephone call to
[facility] to make the referral. Sent referral. Will need to see her current functional level to see if she will have any skilled care needs. Medical work-up in progress. The discharge plan is to return home with [facility] when
medically stable.
[2023-07-15] MEDS: LIPITOR 20 MG PO (18:05)
[2023-07-15] MEDS: NEURONTIN 600 MG PO (22:36)
[2023-07-15] MEDS: KLONOPIN 0.5 MG PO (22:36)
--- NOTE | 2023-07-15 23:39 | PTCARENOTE ---
Pt. noted to be in A-flutter -vs- NSR with U wave at change of shift, rate 60's-70's. Pt. asymptomatic, VSS. EKG completed showing A-flutter. Dr. Snell updated.
[2023-07-16] VITALS (12 sets, daily range): BP systolic 95–133; BP diastolic 55–90; PULSE 70; O2SAT 97; BMI 32.5
[2023-07-16 04:00] LABS: Hematocrit 37.4 % (37.0-47.0); Hemoglobin 11.9 g/dL (12.0-16.0); Mean Corp Hgb Conc. 31.8 g/dL (33.0-37.0); Mean Corpuscular Hgb 27.5 pg (27.0-31.0); Mean Corpuscular Volume 86.4 fL (81.0-99.0); Mean Platelet Volume 9.5 fL (7.4-10.4); Platelet Count 274 10^3/uL (130-400); Red Blood Cell Count 4.33 10^6/uL (4.20-5.40); White Blood Cell Count 7.9 10^3/uL (4.8-10.8)
[2023-07-16 04:24] LABS: Blood Urea Nitrogen 16 mg/dl (7-17); Calcium 8.7 mg/dl (8.4-10.2); Carbon Dioxide 31 mmol/L (22-30); Chloride 103 mmol/L (98-107); Estimated Creatinine Clearance 62 ml/min; Glucose 88 mg/dl (70-99); Magnesium 2.1 mg/dl (1.6-2.3); Potassium 4.4 mmol/L (3.5-5.1); Sodium 138 mmol/L (135-145); eGFR > 60.00
--- NOTE | 2023-07-16 07:37 | W.PN.HOSP.TC ---
Addendum entered and electronically signed by Lucero Avery MD 07/16/23 09:09:
discussed with Dr. Snell who knows patient well
wheezing persists; patient without chronic wheezing
patient ok with starting steroids
start prednisone 40mg PO QD with GI PPx
Original Note:
Today's Communication/Plan
-
F/U further cardiology recommendations for afib
Assessment / Plan
Assessment / Plan
HPI: 78-year-old female with a past medical history of atrial fibrillation on Eliquis, COPD requiring 2 L of oxygen at night, diastolic CHF, hypertension, CVA, gastroesophageal reflux disease, and anxiety/depression was sent by her PCP for rapid
atrial fibrillation.� Patient went to her PCP today for persistent cough that was productive of yellow to dark brown sputum.� Associate symptoms include low-grade fever, headache.
#Rapid atrial flutter
Appreciate cardiology input, status post IV diltiazem
Changed to oral diltiazem 07/13, continue metoprolol tartrate 25 mg twice a day
Continue Eliquis
-s/p cardioversion on 07/15 with patient back in aflutter/afib that evening
-follow up further cardiology recommendations
#Acute bronchitis
Chest x-ray negative, influenza negative, COVID-negative
Status post Zosyn in the ER
Procalcitonin negative, leukocytosis resolved without antibiotics
Continue cough meds prn, supportive care
-continue nebs (ipratropium and levalbuterol given RVR)
-patient is on home O2; states breathing at baseline. lung exam improved this morning; will avoid steroids for now given AE and patient feels breathing is at baseline - continue nebs for wheezing
#Hypokalemia
Repleted and resolved, Mg normal
#History of HFpEF
-Continue oral Lasix, monitor daily weights, strict I's and O's
#COPD
chronic hypoxic respiratory failure
-Baseline 2 L of oxygen
#GERD
-PPI continued
Hyperlipidemia
-Continue statin
Anxiety/depression
-Continue clonazepam
-Continue Lexapro
Spinal stenosis
-Continue gabapentin
DVT prophylaxis�Eliquis
Full Code
Anticipated Discharge: Within 24 hours
Subjective/Interval History
-
Date of Service: July 16, 2023
overall feels breathing is stable, at her baseline
she does not feel herself in afib
Objective Data
-
Labs:
Laboratory Results
07/16/23
03:33
WBC 7.9
Hgb 11.9 L
Hct 37.4
Plt Count 274
Sodium 138
Potassium 4.4
Chloride 103
Carbon Dioxide 31 H
BUN 16
Creatinine 0.8
Glucose 88
Calcium 8.7
Vital Signs:
Vital Signs
Temp Pulse Resp BP Pulse Ox
97.8 F 72 20 105/64 93
07/16/23 07:03 07/16/23 03:08 07/16/23 07:03 07/16/23 03:08 07/16/23 07:03
I&O
07/15/23 07/16/23 07/17/23
06:59 06:59 06:59
Intake Total 240 / 240
Balance 240 / 240
Review of Systems
-
History Source: Patient
All other systems: Reviewed and negative
Physical Exam
-
General: Other (appears fatigued )
Respiratory: Wheezes (end expiratory )
Cardiac: S1/S2 and Irregular Rhythm
GI: Soft and Nontender
Musculoskeletal: No Edema
Skin: Warm and Dry; Negative Rash
Neuro: AO x 3
Psych: Calm
Data Reviewed
-
Diagnostic Radiology: Report Reviewed by me
Labs: Labs Reviewed by me
[2023-07-16] MEDS: LOPRESSOR 25 MG PO ×2 (07:58→20:27)
[2023-07-16] MEDS: CARDIZEM 60 MG PO ×4 (07:58→22:44)
[2023-07-16] MEDS: TUMS 2 TABLET PO ×2 (07:58→17:16)
[2023-07-16] MEDS: PEPCID 20 MG PO ×2 (07:59→20:27)
[2023-07-16] MEDS: FEOSOL 325 MG PO (07:59)
[2023-07-16] MEDS: LEXAPRO 10 MG PO (07:59)
[2023-07-16] MEDS: ELIQUIS 5 MG PO ×2 (07:59→20:26)
[2023-07-16] MEDS: XOPENEX 1.25 MG INHALANT SOLUTION INH ×3 (08:01→19:35)
[2023-07-16] MEDS: ATROVENT NEBULES 0.5 MG INH ×3 (08:01→19:35)
[2023-07-16] MEDS: KCL 10 MEQ PO ×2 (08:02→20:27)
[2023-07-16] MEDS: LASIX 80 MG PO (08:04)
--- NOTE | 2023-07-16 08:33 | W.PN.CD ---
Today's Communication / Plan
-
Patient underwent electrical cardioversion on 07/15/2023 but then has converted back to A-fib we will continue with rate control at this time. Patient's had previous atrial tachycardia ablation. Reviewed EP would consider an A-fib and a flutter
ablation but patient's respiratory status and wheezing needs to improve .
Impression / Plan
-
Afib/flutter - rapid ventricular response.
- rate controlled continue current dosing of Cardizem
- continue outpatient Lopressor 25mg BID.
- continue Eliquis 5mg BID, resumed 07/11/23 (held since 07/06/23 for EGD 07/10/23).
-Review of devices shoes episodes of prolonged fib during hold
- GUILLERMO/DCCV 07/15/2023.
-Patient went back in A-fib in the evening of 07/15/2023 rhythm control options are limited. Limited options for medical therapy based on QTc. Reviewed with EP. Patient had prior ablation of atrial tachycardia. Still a candidate for A-fib and a
flutter ablation. Although added risk with invasive procedure in this patient whose 78 years old, patient's had issues with heart failure with preserved ejection fraction which are more challenging to manage when she is in persistent A-fib. Would
still favor rhythm control strategy reviewed with Dr. Garcia. Patient still wheezing and pulmonary issues need to be optimized prior to considering this procedure. In the meantime we will continue with rate control.
HfpEF
- stable on Lasix 80mg daily. y
Pacemaker. Medtronic
Viral illness vs COPD - acute.
-Patient on 2 L. Still with wheezing and getting nebulizer.
- follows with Dr. Feliz.
HTN - stable on meds, continue.
Subjective
Breathing comfortable with getting nebulizer and still wheezing on exam. Patient converted back to A-fib
Physical Exam
Vital Signs/Labs
Vital Signs
Temp Pulse Resp BP Pulse Ox
97.8 F 101 16 105/64 94
07/16/23 07:03 07/16/23 08:03 07/16/23 08:03 07/16/23 03:08 07/16/23 08:03
07/15/23 07/16/23 07/17/23
06:59 06:59 06:59
Actual Weight 89.9 kg 88.7 kg
07/16/23 03:33
07/16/23 03:33
Magnesium 2.1 mg/dl (1.6-2.3) 07/16/23 03:33
Physical Exam
EENT: Anicteric
Cardiovascular: Rhythm/rate is irregular
Respiratory: Wheeze Present
GI: Soft, Non tender and Normal bowel sounds
Neuro/Psych: Alert and Oriented
Data Reviewed
-
Date of Service: July 16, 2023
Medical Decision Making: Review of Case with other Provider (EP and hospitalist)
EKG: Report Reviewed by me
Medical Tests (PFT, Pathology etc): Report Reviewed by me
Labs: Labs Reviewed by me
[2023-07-16] MEDS: ARISTOCORT/TRIAMCINOLONE 0.1% CREAM 1 APPLIC TOPICAL ×3 (08:47→22:43)
[2023-07-16] MEDS: PROTONIX 40 MG PO (10:03)
[2023-07-16] MEDS: DELTASONE 40 MG PO (10:03)
--- NOTE | 2023-07-16 14:41 | W.PN.UPDATE ---
Update Note
Progress Note Update
I reviewed the AF / flutter with the patient. She has had left atrial focal atrial tachycardia ablated in the past. She is now in atypical atrial flutter vs atrial tachycardia that has not been responding to AAD and DCCV. She goes back to this
incessant arrhythmia. Her long QTc is limiting the use of class III agents. We discussed the options of AVJ ablation vs AF/Flutter ablation. She already has a PPM and AVJ would be a simple solution but she feels that the AF/Flutter causes more
symptoms as she gets good rate control with her PPM in place. She is really interested in AF/Flutter ablation. With her congestion lung exam and recovering infection, will plan for an outpatient evaluation to discuss the AF/Flutter ablation
procedure in detail and plan for ablation if interested.
[2023-07-16] MEDS: LIPITOR 20 MG PO (17:17)
--- NOTE | 2023-07-16 18:00 | PTCARENOTE ---
Pt remains in aflutter. Room air sat 92%. Pt OOB to the chair most of the day and tolerated well. Ambulates independently to the bathroom.
[2023-07-16] MEDS: NEURONTIN 600 MG PO (22:43)
[2023-07-16] MEDS: KLONOPIN 0.5 MG PO (22:43)
--- NOTE | 2023-07-16 23:51 | PTCARENOTE ---
Pt received at start of shift, HR A-flutter 80s-120s. Pt OOB in chair with daughter at bedside. Pt states she is ready to go home. Educated pt on plan of care. Pt denies any pain (just slight discomfort at CV site on upper middle back), SOB, or
lightheadedness/dizziness at this time. Informed to notify RN if any changes, call alexandre within reach.
Pt's O2 on RA 89%, 2L placed on pt, 93-94%.
--- NOTE | 2023-07-17 04:26 | DOWNTIME ---
There was a [employer] Downtime on 07/17/2023 from 0111 to 07/17/2023 at 0405. Downtime documentation of patient's care, including medication administrations, has been reconciled in the electronic record per guidelines. Refer to the
patient's paper chart under the miscellaneous tab to see printed paper medication records and downtime forms.
[2023-07-17 04:38] VITALS: BP 112/72
[2023-07-17 05:26] VITALS: BMI 32.6
[2023-07-17 05:29] LABS: Blood Urea Nitrogen 24 mg/dl (7-17); Calcium 9.1 mg/dl (8.4-10.2); Carbon Dioxide 31 mmol/L (22-30); Chloride 104 mmol/L (98-107); Estimated Creatinine Clearance 55 ml/min; Glucose 110 mg/dl (70-99); Potassium 4.4 mmol/L (3.5-5.1); Sodium 137 mmol/L (135-145); eGFR > 60.00
[2023-07-17 07:30] VITALS: BP 117/80
--- NOTE | 2023-07-17 07:42 | W.PN.HOSP.TC ---
Today's Communication/Plan
-
home O2 monitoring
EKG this AM
prednisone
consider DC later today (will return to re-evaluate lung exam, continues with intermittent cough/mild wheezing this AM). 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 Feliz at [place]
Assessment / Plan
Assessment / Plan
HPI: 78-year-old female with a past medical history of atrial fibrillation on Eliquis, COPD requiring 2 L of oxygen at night, diastolic CHF, hypertension, CVA, gastroesophageal reflux disease, and anxiety/depression was sent by her PCP for rapid
atrial fibrillation.� Patient went to her PCP today for persistent cough that was productive of yellow to dark brown sputum.� Associate symptoms include low-grade fever, headache.
#Rapid atrial flutter
Appreciate cardiology input, status post IV diltiazem
Changed to oral diltiazem 07/13, continue metoprolol tartrate 25 mg twice a day
Continue Eliquis
-s/p cardioversion on 07/15 with patient back in aflutter/afib that evening; rate controlled. this morning tele reads sinus (aflutter?) will obtain EKG
-plan is for outpatient eval of ablation
-follow up further cardiology recommendations
#Acute bronchitis
Acute hypoxic respiratory insufficiency
-patient wears 2L O2 at night at home
Chest x-ray negative, influenza negative, COVID-negative
Status post Zosyn in the ER
Procalcitonin negative, leukocytosis resolved without antibiotics
Continue cough meds prn, supportive care
-continue nebs (ipratropium and levalbuterol given RVR)
-prednisone 40mg started on 07/16
-ambulatory pulse ox
#Hypokalemia
Repleted and resolved, Mg normal
#History of HFpEF
-Continue oral Lasix, monitor daily weights, strict I's and O's
#COPD
chronic hypoxic respiratory failure
-Baseline 2 L of oxygen
#GERD
-PPI continued
Hyperlipidemia
-Continue statin
Anxiety/depression
-Continue clonazepam
-Continue Lexapro
Spinal stenosis
-Continue gabapentin
DVT prophylaxis�Eliquis
Full Code
Anticipated Discharge: Within 24 hours
Subjective/Interval History
-
Date of Service: July 17, 2023
feeling well
awoken from sleep
feels ready to go home
Objective Data
-
Labs:
Laboratory Results
07/17/23
04:45
Sodium 137
Potassium 4.4
Chloride 104
Carbon Dioxide 31 H
BUN 24 H
Creatinine 0.9
Glucose 110 H
Calcium 9.1
Vital Signs:
Vital Signs
Temp Pulse Resp BP Pulse Ox
97.5 F 83 18 112/72 94
07/17/23 04:38 07/17/23 05:00 07/17/23 04:38 07/17/23 04:38 07/17/23 04:38
I&O
07/16/23 07/17/23 07/18/23
06:59 06:59 06:59
Intake Total 480 / 480
Balance 480 / 480
Review of Systems
-
History Source: Patient
All other systems: Reviewed and negative
Physical Exam
-
General: Other (appears fatigued )
Respiratory: Wheezes (end expiratory + coughing with exhalation)
Cardiac: S1/S2 and Irregular Rhythm
GI: Soft and Nontender
Musculoskeletal: No Edema
Skin: Warm and Dry; Negative Rash
Neuro: AO x 3
Psych: Calm
Data Reviewed
-
Diagnostic Radiology: Report Reviewed by me
Labs: Labs Reviewed by me
[2023-07-17] MEDS: LASIX 80 MG PO (07:50)
[2023-07-17] MEDS: ELIQUIS 5 MG PO (07:51)
[2023-07-17] MEDS: CARDIZEM 60 MG PO (07:51)
[2023-07-17] MEDS: KCL 10 MEQ PO (07:51)
[2023-07-17] MEDS: LOPRESSOR 25 MG PO (07:51)
[2023-07-17] MEDS: LEXAPRO 10 MG PO (07:51)
[2023-07-17] MEDS: TUMS 2 TABLET PO (07:51)
[2023-07-17] MEDS: FEOSOL 325 MG PO (07:51)
[2023-07-17] MEDS: DELTASONE 40 MG PO (07:51)
[2023-07-17] MEDS: PROTONIX 40 MG PO (07:51)
[2023-07-17] MEDS: PEPCID 20 MG PO (07:51)
[2023-07-17] MEDS: ARISTOCORT/TRIAMCINOLONE 0.1% CREAM 1 APPLIC TOPICAL (07:52)
[2023-07-17] MEDS: ATROVENT NEBULES 0.5 MG INH (08:38)
[2023-07-17] MEDS: XOPENEX 1.25 MG INHALANT SOLUTION INH ×2 (08:38→13:31)
--- NOTE | 2023-07-17 08:39 | W.PN.CD ---
Today's Communication / Plan
-
transition diltiazem to 240mg long acting
continue eliquis
will arrange outpatient follow up
Impression / Plan
-
Afib/flutter - rapid ventricular response.
- rate controlled continue current dosing of Cardizem
- continue outpatient Lopressor 25mg BID.
- continue Eliquis 5mg BID, resumed 07/11/23 (held since 07/06/23 for EGD 07/10/23).
-Review of devices shoes episodes of prolonged fib during hold
- GUILLERMO/DCCV 07/15/2023-->Recurrent rhythm
-plan is to return for PVI, will arrange for follow up with Dr Funk
-change diltiazem to long acting
HfpEF
-chronic
- stable on Lasix 80mg daily.
Pacemaker. [employer]
Viral illness vs COPD - acute.
-Patient on 2 L. Typically uses nocturnally.
-CTA today
-care as per medicine
- follows with Dr. Feliz.
HTN - stable on meds, continue.
Subjective
Feeling much better, no cp or sob
Physical Exam
Vital Signs/Labs
Vital Signs
Temp Pulse Resp BP Pulse Ox
97.4 F 83 18 112/72 95
07/17/23 07:46 07/17/23 05:00 07/17/23 07:46 07/17/23 04:38 07/17/23 07:46
07/16/23 07/17/23 07/18/23
06:59 06:59 06:59
Actual Weight 88.7 kg 88.9 kg
07/16/23 03:33
07/17/23 04:45
Magnesium 2.1 mg/dl (1.6-2.3) 07/16/23 03:33
Physical Exam
Constitutional: No acute distress
Cardiovascular: Pedal edema is absent, JVD pressure is normal, Systolic murmur absent, Diastolic murmur absent and Rhythm/rate is irregular
Respiratory: Respiratory effort normal, Lungs clear to auscul., Wheeze Absent, Crackles Absent and Rhonchi Absent
Neuro/Psych: AO x 3
Data Reviewed
-
Date of Service: July 17, 2023
EKG: Other (afib with rate control)
[2023-07-17] MEDS: MUCINEX 600 MG PO (09:02)
[2023-07-17 09:34] VITALS: O2SAT 92; O2SAT 93
--- NOTE | 2023-07-17 11:52 | W.DS.TRANS ---
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
-
Discharge Instructions:
Discharge Diagnosis/Procedures atrial fibrillation; acute bronchitis
Diet 2 Gram Sodium,Restrict fluids to 48 oz
Activity As tolerated
Driving Restrictions As prior to admission
Bathing Restrictions None
Other Services PT,VN
Specialty Instructions Weigh Daily
Instructions:
Stand-Alone Forms:
Changes to Home Medications: Yes
Discharge Medications:
DC Medications w/original date entered in [employer]
clonazepam 0.5 mg tablet 0.5 mg PO HS Mental Health/Anxiety 09/12/18
potassium chloride 10 mEq tablet,extended release(part/cryst) 10 meq PO BID Electrolyte Repletion 09/12/18
atorvastatin 20 mg tablet 20 mg PO QPM High cholesterol 10/27/21
calcium carbonate 200 mg calcium (500 mg) chewable tablet (Antacid (calcium carbonate)) 2 tab PO BID@0800,1730 Supplement 10/27/21
cholecalciferol (vitamin D3) 25 mcg (1,000 unit) tablet 1,000 units PO DAILY Supplement 10/27/21
Lactobacillus acidophilus and rhamnosus 15 billion cell capsule (Probiotic) 1 cap PO DAILY Supplement 01/02/22
acetaminophen 500 mg tablet (Acetaminophen Extra Strength) 500 mg PO Q6H PRN back pain 01/02/22
famotidine 20 mg tablet 20 mg PO BID Gastrointestinal issue 01/02/22
iron 18 mg tablet 54 mg PO DAILY Supplement 01/02/22
apixaban 5 mg tablet 5 mg PO BID Blood clot prevention/tx 02/12/22
furosemide 20 mg tablet 80 mg PO DAILY Fluid retention/Swelling 04/12/22
gabapentin 300 mg capsule 600 mg PO HS Pain 04/12/22
tiotropium bromide 2.5 mcg/actuation mist for inhalation (Spiriva Respimat) 2 inh inhalation R DAILY Lung/breathing issues 04/12/22
escitalopram oxalate 10 mg tablet 10 mg PO DAILY Mental Health/Anxiety 07/12/23
levalbuterol tartrate 45 mcg/actuation aerosol inhaler 2 puff inhalation R Q6 PRN sob/wheezing 07/12/23
varenicline 0.03 mg/spray nasal spray (Tyrvaya) 1 spray intranasal DAILY DRY EYE DISEASE 07/12/23
diltiazem HCl 240 mg capsule,extended release 24 hr 240 mg PO DAILY #30 caps 07/17/23
metoprolol tartrate 25 mg tablet 25 mg PO BID Blood Pressure #60 tabs 07/17/23
pantoprazole 40 mg tablet,delayed release 40 mg PO DAILY #7 tabs 07/17/23
prednisone 20 mg tablet 40 mg PO DAILY #6 tabs 07/17/23
triamcinolone acetonide 0.1 % topical cream 1 applic topical TID PRN rash from cardioversion pad #15 grams 07/17/23
Home Medication Changes
Your Diltiazem dose is increased from 120mg to 240mg (new script sent)
Continue metoprolol twice a day 25mg.
You are prescribed 3 more days of steroids (2 pills daily)
You are prescribed protonix to take while on steroids (one more week to protect stomach while on steroids)
You can continue to use steroid cream for rash (stop when rash resolved).
Pending Results: No
[2023-07-17 12:39] VITALS: PULSE 72
[2023-07-17] MEDS: ATROVENT NEBULES INH (13:31)
[2023-07-17] MEDS: CARDIZEM CD 240 MG PO (13:54)
--- NOTE | 2023-07-17 15:07 | W.DCSUMMARY ---
Discharge Summary
Discharge Data
Date of Admission: 07/12/23
Date of Discharge: 07/17/23
-
Pending Results: No
Hospital Course
Discharging Physician : Dr. Lucero Avery
Disposition : Home
Primary care physician : Dr. Lien Sherman
Principal Discharge diagnosis : Atrial Fibrillation with rapid ventricular rate, acute bronchitis
Hospital Course :
Ms. 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
for afib with RVR. Patient went to PCP clinic today for URI symptoms. Triage vitals significant for pulse 144. EKG with afib with RVR. Labs with WBC 16.2. CXR without acute process.
Patient was admitted to medicine with cardiology consulting. Regarding afib, her medications were adjusted with increase in Diltiazem dosing to 240mg and metoprolol given twice a day (patient was taking daily at home although prescribed twice a
day). She underwent cardioversion on 07/15 with initial return to sinus rhythm but went back into afib that evening. She remains rate controlled. Plan will be for outpatient evaluation for ablation.
Regarding URI symptoms, no e/o pneumonia. Covid and flu negative. WBC resolved without antibiotics. She remained with intermittent wheeze and is given a 5 day course of prednisone to complete on discharge. Lung exam improved on day of discharge
and she does not require day time O2.
Time spent on discharge was 35 minutes.
Important imaging findings :
Procedure findings :
Discharge Plan
-
Patient Disposition: Home with Home Care
Discharge Diagnosis/Procedures: atrial fibrillation; acute bronchitis
Diet: 2 Gram Sodium and Restrict fluids to 48 oz
Activity: As tolerated
Driving Restrictions: As prior to admission
Bathing Restrictions: None
Other Services: VN and PT
Specialty Instructions: Weigh Daily- Call MD for wt gain/loss 3 lbs overnight/5 lbs in 1 week
Activity Restrictions/Additional Instructions:
Your Diltiazem dose is increased from 120mg to 240mg (new script sent)
Continue metoprolol twice a day 25mg.
You are prescribed 3 more days of steroids (2 pills daily)
You are prescribed protonix to take while on steroids (one more week to protect stomach while on steroids)
You can continue to use steroid cream for rash (stop when rash resolved).
Follow up with Dr. Funk to discuss ablation.
Referrals:
[facility] [Outside]
Solitario Feliz MD [Active] - in one to two weeks
Shirley Funk MD [Active] - in two weeks (The cardiology office will call you to arrange follow-up with Dr. Funk of electrophysiology in about 2 weeks. Therefore, your follow-up next week with Dr. Snell will be cancelled, since you will
have an electrophysiology appointment, as above.)
Lien Sherman CRNP [Family Provider] - in less than 1 week
Prescriptions:
New
triamcinolone acetonide 0.1 % Cream
1 applic topical TID PRN (Reason: rash from cardioversion pad ) Qty: 15 0RF
diltiazem HCl 240 mg Capsule,Extended Release 24hr
240 mg PO DAILY Qty: 30 0RF
prednisone 20 mg Tablet
40 mg PO DAILY Qty: 6 0RF
pantoprazole 40 mg Tablet,Delayed Release (Dr/Ec)
40 mg PO DAILY Qty: 7 0RF
Continued
clonazepam 0.5 MG tablet
0.5 mg PO HS
Patient Comments:
07/12/2023: last filled 06/11/23, 30 tabs for 30 days from [facility]
potassium chloride 10 MEQ tablet,ER particles/crystals
10 meq PO BID
atorvastatin 20 MG tablet
20 mg PO QPM
cholecalciferol (vitamin D3) 1,000 UNITS tablet
1,000 units PO DAILY
calcium carbonate [Antacid (calcium carbonate)] 1 TABLET tablet,chewable
2 tab PO BID@0800,1730
acetaminophen [Acetaminophen Extra Strength] 500 mg Tablet
500 mg PO Q6H PRN (Reason: back pain)
famotidine 20 mg Tablet
20 mg PO BID
iron 18 mg Tablet
54 mg PO DAILY
Patient Comments:
time release
Probiotic 15 billion cell Capsule
1 cap PO DAILY
apixaban 5 mg Tablet
5 mg PO BID
gabapentin 300 mg capsule
600 mg PO HS
Spiriva Respimat 2.5 mcg/actuation Mist
2 inh INHALATION R DAILY
furosemide 20 MG tablet
80 mg PO DAILY
Rx Instructions:
NEW DOSE
levalbuterol tartrate 45 mcg/actuation Hfa Aerosol Inhaler
2 puff INHALATION R Q6 PRN (Reason: sob/wheezing)
escitalopram oxalate 10 mg tablet
10 mg PO DAILY
Tyrvaya 0.03 mg/spray spray, metered, non-aerosol
1 spray INTRANASAL DAILY
metoprolol tartrate 25 mg tablet
25 mg PO BID Qty: 60 0RF
Patient Comments:
07/12/2023: Pt states only taking in the am, despite pharmacy filling for BID
Discontinued
diltiazem HCl 120 mg capsule,extended release 24hr
120 mg PO DAILY
Discharge Orders:
Discharge Patient (As Directed); Ordered 07/17/23
Ordered By: Lucero Avery
Care Plan Goals
Care Plan Goals:
Problem: Readiness for enhanced knowledge related to diagnosis and treatment plan
Goal: Understand your diagnosis and treatment plan needs, including medications if applicable.
Instructions: Know your diagnosis, underlying causes and treatment plan options, including medications if applicable. Consult with your health care team to learn about your diagnosis and treatment plan, including medications if applicable.
--- NOTE | 2023-07-17 16:03 | PTCARENOTE ---
Pt received this am awake, alert and oriented. Denies any chest pain or sob. OOB independently. Remains in aflutter in the 60's to 80's. Pt discharged to home with her daughter. Discharge instructions given and reviewed with good understanding.
== END 2023-07-17 15:45 | disposition home health service (06) | DRG 202 ==
LOC: IVU 15:32
PROVIDERS: Internal Medicine Cardiovascular Disease; Registered Nurse; ADMITTING PHYSICIAN Family Medicine; ATTENDING PHYSICIAN Student in an Organized Health Care Education/Training Program; CONSULT PHYSICIAN Internal Medicine Cardiovascular Disease; EMERGENCY PHYSICIAN Emergency Medicine; FAMILY PHYSICIAN Nurse Practitioner
PROC: B24BZZ4 Ultrasonography of Heart with Aorta, Transesophageal (ICD-10-PCS; 2023-07-15)
PROC: 5A2204Z Restoration of Cardiac Rhythm, Single (ICD-10-PCS; 2023-07-15)
DX: J20.9 Acute bronchitis, unspecified (principal); J69.0 Pneumonitis due to inhalation of food and vomit; J96.21 Acute and chronic respiratory failure with hypoxia; I48.19 Other persistent atrial fibrillation; I50.32 Chronic diastolic (congestive) heart failure; J44.1 Chronic obstructive pulmonary disease with (acute) exacerbation; J44.0 Chronic obstructive pulmonary disease with (acute) lower respiratory infection; I48.92 Unspecified atrial flutter; Z79.01 Long term (current) use of anticoagulants; Z86.73 Personal history of transient ischemic attack (TIA), and cerebral infarction without residual deficits; I11.0 Hypertensive heart disease with heart failure; Z87.891 Personal history of nicotine dependence; K21.9 Gastro-esophageal reflux disease without esophagitis; F32.A Depression, unspecified; F41.9 Anxiety disorder, unspecified; M48.00 Spinal stenosis, site unspecified; E78.00 Pure hypercholesterolemia, unspecified; E87.6 Hypokalemia; Z11.52 Encounter for screening for COVID-19
CPT/HCPCS: 71045; 71046; 80048; 80053; 81003; 81015; 83605; 83735; 84145; 85025; 85027; 87040; 87045; 87046; 87070; 87077; 87205; 87324; 87427; 87449; 87502; 87798; 87811; 89055; 92960; 93005; 93312; 93320; 93325; 94640; 94761; 96365; 96366; 96367; 97116; 97163; 97167; 97530; 99291

== ENCOUNTER → 2023-08-08 10:18 | Outpatient (REF) | payer MEDICARE, BC, SELFPAY ==
[2023-08-08 12:59] LABS: ALT (SGPT) 14 U/L (0-35); AST (SGOT) 24 U/L (14-36); Albumin 3.7 g/dl (3.5-5.0); Alkaline Phosphatase 115 U/L (38-126); Blood Urea Nitrogen 19 mg/dl (7-17); Calcium 9.2 mg/dl (8.4-10.2); Carbon Dioxide 33 mmol/L (22-30); Chloride 102 mmol/L (98-107); Glucose 87 mg/dl (70-99); HDL Cholesterol 61 mg/dl; LDL Cholesterol, Calculated 48 mg/dl; Potassium 4.4 mmol/L (3.5-5.1); Sodium 139 mmol/L (135-145); Total Bilirubin 0.9 mg/dl (0.2-1.3); Total Cholesterol 125 mg/dl (50-199); Total Protein 6.7 g/dl (6.3-8.2); Triglyceride 83 mg/dl (10-149); Very Low Density Lipoprotein 16 mg/dl (0-30); eGFR 56.95
[2023-08-08 13:16] LABS: % Basophils 0.8 % (0-2); % Eosinophils 3.8 % (0-6); % Immature Granulocytes 0.6 % (0-0.5); % Lymphocytes 17.8 % (20.5-51.1); % Monocytes 7.2 % (1.7-9.3); % Neutrophils 69.8 % (42.2-75.2); Absolute Basophils 0.1 10^3/uL (0-0.2); Absolute Eosinophils 0.3 10^3/uL (0-0.7); Absolute Lymphocytes 1.3 10^3/uL (1.2-3.4); Absolute Monocytes 0.5 10^3/uL (0.1-0.6); Hematocrit 42.6 % (37.0-47.0); Hemoglobin 13.3 g/dL (12.0-16.0); Mean Corp Hgb Conc. 31.2 g/dL (33.0-37.0); Mean Corpuscular Hgb 27.5 pg (27.0-31.0); Mean Platelet Volume 10.8 fL (7.4-10.4); Nucleated Red Blood Cells % 0 %; Platelet Count 239 10^3/uL (130-400); Red Blood Cell Count 4.84 10^6/uL (4.20-5.40); Red Cell Dist. Width 15.4 % (11.5-14.5); White Blood Cell Count 7.1 10^3/uL (4.8-10.8)
== END ==
LOC: HWLAB 10:18
PROVIDERS: ATTENDING PHYSICIAN Internal Medicine Cardiovascular Disease; FAMILY PHYSICIAN Nurse Practitioner
DX: E78.2 Mixed hyperlipidemia (principal); Z86.73 Personal history of transient ischemic attack (TIA), and cerebral infarction without residual deficits; I48.91 Unspecified atrial fibrillation; I48.19 Other persistent atrial fibrillation; I48.92 Unspecified atrial flutter; I47.10 Supraventricular tachycardia, unspecified
CPT/HCPCS: 36415; 80053; 80061; 85025

== ENCOUNTER → 2023-08-22 11:36 | Outpatient (REF) | payer MEDICARE, BC, SELFPAY ==
[2023-08-22 17:28] LABS: Calcium 10.4 mg/dl (8.4-10.2)
[2023-08-24 08:55] LABS: Intact PTH 123.1 pg/ml (13.6-85.8)
== END ==
LOC: HWRAD 11:36
PROVIDERS: ATTENDING PHYSICIAN Internal Medicine Rheumatology; FAMILY PHYSICIAN Nurse Practitioner
DX: M81.0 Age-related osteoporosis without current pathological fracture (principal); Z51.81 Encounter for therapeutic drug level monitoring; M19.019 Primary osteoarthritis, unspecified shoulder; M25.512 Pain in left shoulder
CPT/HCPCS: 36415; 73030; 83970

== ENCOUNTER 2023-08-26 06:01 | Day surgery (SDC) | payer MEDICARE, BC, SELFPAY ==
[2023-08-26] VITALS (8 sets, daily range): BP systolic 110–154; BP diastolic 63–95; BMI 32.3
--- NOTE | 2023-08-26 10:46 | ITS.CL.ABL ---
Coil Connector - Ablation
Ablation
Procedure Report:
AFIB ablation:
Mr. Rincon is a very pleasant 78 yr old woman with medical history significant for symptomatic persistent atrial fibrillation, atrial flutter, and atrial tachycardia, on Eliquis presented now in the EP lab for ablation
Date of Procedure:
08/26/23
Indications:
Symptomatic atrial fibrillation, atrial flutter and atrial tachycardia
Pre-Operative Diagnosis:
Persistent Atrial fibrillation, atrial flutter and atrial tachycardia
Post-Operative Diagnosis:
Persistent Atrial fibrillation, atrial flutter and atrial tachycardia
Procedure Performed:
Atypical atrial flutter ablation with macro reentry around the left atrial appendage
Ablation of Roof dependent left atrial flutter
Atrial fibrillation ablation with wide area circumferential ablation (WACA) approach for pulmonary vein isolation
Roof line formation
Posterior wall isolation
Left atrial tachycardia ablation � Left atrial foci
Performing Physician:
Shirley Fukn MD
Assistants:
EP staff
Anesthesia:
See anesthesia records
Detailed Description of the Procedure:
Written informed consent was obtained from the patient after a full explanation of the risks and benefits of the procedure including the risks of sedation and anesthesia.
The patient was brought to the electrophysiology laboratory in stable condition in fasting state. Continuous electrocardiographic and hemodynamic monitoring was initiated.
The initial rhythm was atrial flutter.
The PPM was assessed and the [employer] z os mainframe systems programmer was kept in the room for adjustment.
The procedure site was meticulously prepared with surgical scrub and allowed to dry with no pooling. Sterile draping was applied to cover the procedure site. The image intensifier was draped with sterile bag and positioned over the patient. After
infusion of local anesthetic, vascular access was obtained under ultrasound guidance and sheaths were placed over guide wire as detailed below.
Sheath and Catheter Placement:
In the right femoral vein, an 8-Algerian sheath was placed for use during the ablation procedure. A second 9-Fr sheath was placed for use during intracardiac echo procedure. �Another 7 Fr sheath was placed in the right femoral vein for CS placement.
The sheaths were upgraded as needed during the case. Intracardiac catheters were positioned using direct EAM guidance.� ICE catheter was placed in RA. The following catheters / sheaths were placed
Sheaths:
��������������� Carto VISIGO sheath in right femoral vein upgraded from 8Fr in right femoral vein
��������������� 9Fr in right femoral vein
��������������
Catheters:
������������� Biosense Ascencio Thermpocool STSF bidirectional (D/F) - at locations of HRA, RV, LA and LV.
������������� Pentaray catheter � at locations of RA, CS and LA
������������� ICE catheter - at locations of RA, SVC, and RV.
Heparin was initiated and infused to maintain appropriate ACT.
Intracardiac ECHO:
An 8-Algerian AcuNav intracardiac ECHO (ICE) probe was advanced through the 9-Algerian sheath in the femoral vein into the right atrium under EAM and ICE ultrasound image guidance and a baseline ECHO study was performed. The left atrial size was
enlarged. There was moderate tricuspid regurgitation. The aortic valve was grossly normal. There was normal left ventricular systolic functions. There was small circumferential pericardial effusion. The ASHU has low velocities noted on Doppler. All
the veins were identified and good flow noted.
During the procedure, ICE was used for monitoring of complications, guidance of trans-septal puncture, monitor the catheter position and tracking ablation lesions. No change in the pericardial space noted throughout the procedure.
Electroanatomic mapping (EAM) of the right atrium:
Using the Pentaray catheter advanced through 8Fr sheath into the right atrium, an electroanatomic map (EAM) of the right atrium was created using [employer] Carto mapping system. The map was used to identify the trans-septal location. It
showed mildly dilated right atrium.
The ablation catheter was placed in the coronary sinus and the tachycardia was first mapped in the RA. The CL of 240 msec was noted and the earliest point was at the CS� proximal area with� RA at a later location.
Decision was made to proceed with trans septal puncture
Trans-septal Puncture:
A J-tipped guidewire was advanced through the 8-Algerian sheath in the right femoral vein into the superior vena cava under EAM and ICE guidance. The 8-Algerian sheath was exchanged for a VIZIGO sheath which was advanced into the superior vena cava. A
BRK needle was advanced until the tip was slightly behind the tip of the dilator inside the Visigo sheath. The apparatus was withdrawn until it was in contact with the fossa ovalis. The position was adjusted based on EAM and ultrasound images from
ICE. Under EAM, hemodynamic and ICE ultrasound guidance, left atrium was cannulated by advancing the needle. Once atrial septum was cannulated, the needle was pulled back and a saline injection was done into the left atrium. The saline bubbles were
noted on the ICE confirming the trans-septal puncture. Both the sheath and the dilator was advanced into the left atrium. The dilator with the needle was withdrawn. Blood was aspirated from the sheath and arterial blood confirmed. The sheath was
flushed. Saline injection noted into the left atrium on ICE. The pressure waveform was checked and LA pressure measured. The penta-ray catheter was advanced in the sheath into the left pulmonary vein.
The 3-D mapping was done and then the penta-ray was switched to ablation catheter and back to penta-ray as needed.
3D Electroanatomic Mapping - LA:
Using the Pentaray catheter advanced through VIZIGO sheath into the left atrium, an electroanatomic map (EAM) of the left atrium was created using [employer] Carto mapping system. The map was used for localization of catheter position and
tacking of ablation lesions. The EAM of the left atrium showed a 2 left sided veins with 2 right sided veins with all electrically connected to the body the LA. It showed extremely scarred left atrium. The LA was dilated in size. �
The tachycardia was mapped with CL of 240 msec. The tachycardia was a macro reentry tachycardia revolving around the ASHU.
Following the EAM, preparations were made for ablation.
Ablation # 1: Atrial flutter ablation for macro reentry around the left atrial appendage.
Radiofrequency ablation was performed using an open irrigation, force-sensing 3.5mm radiofrequency ablation catheter (ThermoFiscalNote STSF) at the Coumadin ridge between ASHU and the RSPV.
The atria flutter tachycardia terminated into atrial paced rhythm with a single ablation at the critical isthmus of the reentry at anterior ridge of RSPV.
Then patient spontaneously went into a slower tachycardia of 540 msec. This tachycardia was mapped and was noted to have reentry involving the roof the left atrium
Decision was made to proceed to PVI first and then do the flutter ablation with roof line.
Phrenic nerve stimulation:
The right sided pulmonary veins were identified and the anterior antrum and the deep anterior locations of the PVs were check with high output stimulation 20mA for 4 milliseconds that showed no phrenic nerve capture in any of the potential ablation
areas.
No phrenic nerve capture was noted and the safe areas were marked and a design line was created through the areas of tested antral myocardium for ablation lesions.
Ablation # 2: Pulmonary vein Isolation:
Radiofrequency ablation was performed using an open irrigation, force-sensing 3.5mm radiofrequency ablation catheter (ThermoFiscalNote STSF) by completing the circumferential lesions around the left and right pulmonary veins achieving pulmonary vein
isolation.
All the ablation lesions were guided by the [employer] SURPOINT module with the posterior lesions were limited to 45 canela for SURPOINT lesion index goal of 400 and anterior wall lesions were limited to SURPOINT index goal of 450.
The esophagus was noted to be on the left side of the LA near the PV antra based on the locations of the esophageal temperature probe. Ablation was stopped for any temperature increase of 0.1 degree C. Max esophageal temperature was 35.9C.
Ablation # 3: Atypical atrial flutter / Roof line Formation:
The tachycardia of 540 mses was roof dependent flutter and while doing the left sided PV isolation, the roof was ablated that slowed and terminated the tachycardia.
A set of radiofrequency ablations were placed on the roof line connecting the left superior pulmonary vein ablation lesions to the right superior pulmonary vein lesions rings.
The LA was mapped demonstrating clear line of block at the roof and the bipolar voltage EAM showed no electrical activity and scar at the line of ablation confirming the block at the roof.
Ablation # 4: Posterior wall isolation with the Box lesions set Formation:
There was a significant fractionation seen in the posterior wall and LA AF foci along with CFAE made it clear as the posterior wall is critical in maintaining the atrial fibrillation and the decision was made to isolate the posterior wall by
creating a �Box� lesions.
A set of radiofrequency ablations were placed on the floor line connecting the left inferior pulmonary vein ablation lesions to the right inferior pulmonary vein lesions rings.
Ablation #5: Left atrial anterior and septal wall tachycardia:
Multiple areas of the atrial ectopy and fractionated noted that was originating from areas of LA septum, anterior wall, roof area, anterior to the ASHU and the Coumadin ridge.
The ablation areas were connected to the closest line of block to prevent any further reentry.
Confirmation of the PVI and bidirectional block:
Following achievement of entrance block at the pulmonary veins, pacing from the pentaray catheter in each of the four veins at 10 milliamps for 2 milliseconds showed entrance and exit block. All PVI were rechecked at the end of the case and remained
isolated with dissociated and local capture with pacing. Entrance and exit block were demonstrated in all veins.
The LA was mapped with Carto EAM in sinus rhythm confirming the line of block at the ablation lesions lines.
The AV vicky functions are deemed within normal range.
Arrhythmia Induction:
No sustained arrhythmia was induced at the end of the study.�
Procedure End
ICE study was done again that showed no epicardial accumulation. No complications noted.
Following the completion of the EP study, catheters were removed. Protamine 40 mg was given at the end of the procedure and ACT was checked repeatedly. The sheaths were removed and hemostasis achieved with VASCADE and manual compression after
acceptable ACT is achieved.
Left atrial Pressure:
Pre-ablation: Mean LA pressure was 11mmHg
Post-ablation: Mean LA pressure was 15mmHg
Post ablation RA pressure: 6mmHg
Estimated Blood loss:
<10 cc
Specimens Removed:
None.
Implants / Devices:
None
Urine output:
None
Packs / Drains/ Tubes:
None
Instrument / Sponge Count Correct:
Yes
Complications of the Procedure:
None
Condition of Patient at Time of Transfer:
Hemodynamically stable with no neurological or vascular compromise.
Summary:
Successful atypical atrial flutter ablation with macro reentry around the left atrial appendage, ablation of Roof dependent left atrial flutter, atrial fibrillation ablation with wide area circumferential ablation (WACA) approach for pulmonary vein
isolation, roof line formation, posterior wall isolation, left atrial tachycardia ablation � anterior wall foci
�
[2023-08-26] MEDS: TYLENOL 650 MG PO (11:26)
[2023-08-26] MEDS: ANESTHETIC LOZENGE 1 LOZENGE PO (11:27)
[2023-08-26 12:44] LABS: ACT-LR - POC 374 Seconds (116-155)
[2023-08-26 12:45] LABS: ACT-LR - POC 314 Seconds (116-155)
[2023-08-26 12:45] LABS: ACT-LR - POC 324 Seconds (116-155)
[2023-08-26 12:45] LABS: ACT-LR - POC 334 Seconds (116-155)
--- NOTE | 2023-08-26 14:09 | W.PN.UPDATE ---
Update Note
Progress Note Update
Pt seen post PVI/Flutter ablation. Right femoral site with vascade closure, no ht/bleeding, non tender. OOB ambulating, urinating without difficulty. Post EKG APaced 60s, no acute changes. Resume eliqus today, continue other meds as before. Followup
at [facility] arranged. Home today if groin sites/tele remain stable.
== END 2023-08-26 13:21 | disposition home or self-care (01) ==
LOC: CATH 06:01
PROVIDERS: ATTENDING PHYSICIAN Internal Medicine Cardiovascular Disease; FAMILY PHYSICIAN Nurse Practitioner
DX: I48.19 Other persistent atrial fibrillation (principal); I48.4 Atypical atrial flutter; Z95.0 Presence of cardiac pacemaker; Z86.73 Personal history of transient ischemic attack (TIA), and cerebral infarction without residual deficits; I49.5 Sick sinus syndrome; Z79.01 Long term (current) use of anticoagulants; I10 Essential (primary) hypertension
CPT/HCPCS: C1760; C1732 ×2; C1894; C1892; C1759; 76937; 85347; 86850; 86900; 86901; 93005; 93655; 93656

== ENCOUNTER 2023-09-04 10:39 | Emergency (ER) | payer MEDICARE, BC, SELFPAY ==
[2023-09-04 10:55] VITALS: BP 133/93
[2023-09-04 11:22] LABS: % Basophils 0.7 % (0-2); % Eosinophils 1.6 % (0-6); % Immature Granulocytes 0.5 % (0-0.5); % Lymphocytes 11.8 % (20.5-51.1); % Monocytes 9.7 % (1.7-9.3); % Neutrophils 75.7 % (42.2-75.2); Absolute Basophils 0.1 10^3/uL (0-0.2); Absolute Eosinophils 0.1 10^3/uL (0-0.7); Absolute Monocytes 0.9 10^3/uL (0.1-0.6); Absolute Neutrophils 6.6 10^3/uL (1.4-6.5); Hematocrit 41.9 % (37.0-47.0); Hemoglobin 13.7 g/dL (12.0-16.0); Mean Corp Hgb Conc. 32.7 g/dL (33.0-37.0); Mean Corpuscular Hgb 28.2 pg (27.0-31.0); Mean Corpuscular Volume 86.2 fL (81.0-99.0); Mean Platelet Volume 9.5 fL (7.4-10.4); Nucleated Red Blood Cells % 0 %; Platelet Count 226 10^3/uL (130-400); Red Blood Cell Count 4.86 10^6/uL (4.20-5.40); Red Cell Dist. Width 15.8 % (11.5-14.5); White Blood Cell Count 8.7 10^3/uL (4.8-10.8)
[2023-09-04 11:50] LABS: ALT (SGPT) 16 U/L (0-35); AST (SGOT) 23 U/L (14-36); Albumin 4.1 g/dl (3.5-5.0); Alkaline Phosphatase 133 U/L (38-126); Blood Urea Nitrogen 23 mg/dl (7-17); Calcium 9.3 mg/dl (8.4-10.2); Carbon Dioxide 26 mmol/L (22-30); Chloride 102 mmol/L (98-107); Glucose 102 mg/dl (70-99); Potassium 3.4 mmol/L (3.5-5.1); Sodium 136 mmol/L (135-145); Total Bilirubin 0.9 mg/dl (0.2-1.3); eGFR 56.95
--- NOTE | 2023-09-04 14:18 | ED.GENMED ---
History of Present Illness
<FINN Marquez - Last Filed: 09/05/23 16:11>
General
Chief Complaint: Abdominal Symptoms
Source: patient
Exam Limitations: none
Time Seen by Provider: 09/04/23 14:10
Nursing documentation reviewed up to this point in time: agreed with
Travel History
Have you had any contact with someone who has COVID-19?: No
Do you have any symptoms of coronavirus? Fever > 100 degrees, chills, cough, shortness of breath, sore throat, loss of taste or smell, muscle aches, or headache?: No
History of Present Illness
History of Present Illness:
patient is an 78-year-old female who presents to the ER complaining of diarrhea for the past 5 days. She reports she has had at least 10 episodes of watery diarrhea per day. she denies Any recent antibiotic use. She does feel some abdominal
discomfort and feels very gassy. She denies any fever or chills. She does feel very weak. She did drive her self to the ER.
Past History
<FINN Marquez - Last Filed: 09/05/23 16:11>
Past History
ED Past Medical History: Arrthythmia (Paroxysmal atrial fibrillation), CHF, COPD, CVA (with L facial droop, garbled speech), GERD, HTN, Hypercholesterolemia, Psychiatric (Anxiety, Depression) and Other (Hepatic cyst resection, bile duct leak,
pleural effusion, spinal stenosis, osteopenia, adrenal adenoma, skin cancer, Pneumonia)
ED Past Surgical History: Cholecystectomy, Gynecological and Other (liver cyst removed with portion of liver removed, Pancreatic stents)
Social History
Tobacco: Former smoker
Alcohol: Occasional
Drug: None
Personal:
Living: with family
Employment: Retired
Family History
Family History: Other (Noncontributory)
Review of Systems
<FINN Marquez - Last Filed: 09/05/23 16:11>
Review of Systems
Allergies reviewed?: Yes
All Other Systems: ROS reviewed and negative except as documented in HPI and ROS
Constitutional: Reports fatigue; Denies fever or chills
EENT: Reports no symptoms
Respiratory: Reports no symptoms
Cardiac: Reports no symptoms
ABD/GI: Reports abdominal pain and diarrhea; Denies nausea or vomiting
: Reports no symptoms
Musculoskeletal: Reports no symptoms
Skin: Reports no symptoms
Neurological: Reports no symptoms
Hematologic/Lymphatic: Reports no symptoms
Psychiatric: Reports no symptoms
Phy Exam
<FINN Marquez - Last Filed: 09/05/23 16:11>
General Physical Exam
General Presentation: no apparent distress
General age: appears stated age
General Skin: warm and dry
General Habitus: normal
General Mental: alert
General Hydration: dry mucous membranes
Cardiovascular Exam
Cardiovascular Exam: regular rate/rhythm, no murmur and normal peripheral pulses
Pulmonary Exam
Pulmonary Exam: lungs clear and no respiratory distress
Gastrointestinal Exam
Gastrointestinal Exam: soft and other (mild non specific abd tenderness)
Neurological Exam
Neurological Exam: alert and oriented x3
Musculoskeletal Exam
Musculoskeletal Exam: full ROM
Skin Exam
Skin Exam: normal color and warm/dry
Psychiatric Exam
Psychiatric Exam: normal mood/affect
Course
<FINN Marquez - Last Filed: 09/05/23 16:11>
Orders/Labs/Results
Orders:
Orders
09/04/23 11:05
CMP [Comprehensive Metabolic Panel] Urgent
Complete Blood Count/With Diff Urgent
09/04/23 14:15
0.9% Sodium Chloride 500 ml [Nss] 500 ml IV BOLUS
09/04/23 14:17
CT Abd/Pel (IV only)-[facility] only Urgent
Comment:
Reason For Exam: abd pain/diarrhea
09/04/23 17:14
Amoxicillin 875 mg/Clav 125 mg [Augmentin 875 mg/125 mg] 1 tablet PO NOW STA
Abnormal Lab Results
09/04/23
11:05
MCHC 32.7 L g/dL
(33.0-37.0)
RDW 15.8 H %
(11.5-14.5)
Absolute Neuts (auto) 6.6 H 10^3/uL
(1.4-6.5)
Absolute Lymphs (auto) 1.0 L 10^3/uL
(1.2-3.4)
Absolute Monos (auto) 0.9 H 10^3/uL
(0.1-0.6)
Neutrophils % 75.7 H %
(42.2-75.2)
Lymphocytes % 11.8 L %
(20.5-51.1)
Monocytes % 9.7 H %
(1.7-9.3)
Potassium 3.4 L mmol/L
(3.5-5.1)
BUN 23 H mg/dl
(7-17)
Glucose 102 H mg/dl
(70-99)
Alkaline Phosphatase 133 H U/L
(38-126)
09/04/23 11:05
09/04/23 11:05
Vital Signs
Initial and Last Documented VS:
Initial Vital Signs
Temp Pulse Resp BP Pulse Ox
97.6 F 84 20 133/93 94
09/04/23 10:55 09/04/23 10:55 09/04/23 10:55 09/04/23 10:55 09/04/23 10:55
Last Documented Vital Signs
Temp Pulse Resp BP Pulse Ox
97.6 F 61 18 135/74 98
09/04/23 10:55 09/04/23 17:16 09/04/23 17:16 09/04/23 17:16 09/04/23 17:16
<Elena Parker ANESTHESIOLOGY FACULTY - Last Filed: 09/05/23 10:18>
Orders/Labs/Results
Orders:
Orders
09/04/23 11:05
CMP [Comprehensive Metabolic Panel] Urgent
Complete Blood Count/With Diff Urgent
09/04/23 14:15
0.9% Sodium Chloride 500 ml [Nss] 500 ml IV BOLUS
09/04/23 14:17
CT Abd/Pel (IV only)-[facility] only Urgent
Comment:
Reason For Exam: abd pain/diarrhea
09/04/23 17:14
Amoxicillin 875 mg/Clav 125 mg [Augmentin 875 mg/125 mg] 1 tablet PO NOW STA
Abnormal Lab Results
09/04/23
11:05
MCHC 32.7 L g/dL
(33.0-37.0)
RDW 15.8 H %
(11.5-14.5)
Absolute Neuts (auto) 6.6 H 10^3/uL
(1.4-6.5)
Absolute Lymphs (auto) 1.0 L 10^3/uL
(1.2-3.4)
Absolute Monos (auto) 0.9 H 10^3/uL
(0.1-0.6)
Neutrophils % 75.7 H %
(42.2-75.2)
Lymphocytes % 11.8 L %
(20.5-51.1)
Monocytes % 9.7 H %
(1.7-9.3)
Potassium 3.4 L mmol/L
(3.5-5.1)
BUN 23 H mg/dl
(7-17)
Glucose 102 H mg/dl
(70-99)
Alkaline Phosphatase 133 H U/L
(38-126)
09/04/23 11:05
09/04/23 11:05
Vital Signs
Initial and Last Documented VS:
Initial Vital Signs
Temp Pulse Resp BP Pulse Ox
97.6 F 84 20 133/93 94
09/04/23 10:55 09/04/23 10:55 09/04/23 10:55 09/04/23 10:55 09/04/23 10:55
Last Documented Vital Signs
Temp Pulse Resp BP Pulse Ox
97.6 F 61 18 135/74 98
09/04/23 10:55 09/04/23 17:16 09/04/23 17:16 09/04/23 17:16 09/04/23 17:16
<FINN Marquez - Last Filed: 09/05/23 16:11>
MDM/Problems Addressed
Differential Diagnosis Includes:
Not limited to diarrhea colitis diverticulitis dehydration electrolyte abnormality
MDM/Problems Addressed:
Patient is an 78-year-old female who presents with diarrhea for the past 5 days approximate 10 times a day watery nonspecific abdominal discomfort. Patient has not been on antibiotics denies any fevers. She has dry mucous membranes BUN is 23
creatinine 1.0. Patient does have CHF was given small fluid bolus. Will obtain CAT scan. Care of patient this time transferred to [facility]. ct pending
<Elena Parker NP - Last Filed: 09/05/23 10:18>
MDM/Problems Addressed
MDM/Problems Addressed:
Patient is an 78-year-old female who presents with diarrhea for the past 5 days approximate 10 times a day watery nonspecific abdominal discomfort. Patient has not been on antibiotics denies any fevers. She has dry mucous membranes BUN is 23
creatinine 1.0. Patient does have CHF was given small fluid bolus. Will obtain CAT scan. Care of patient this time transferred to [facility]. ct pending
09/04/2023 1700 PM
Pt relates that she had non bloody diarrhea that was 'pouring out' of her 3-5 days ago and has improved a lot, to one small squirt today and one episode yesterday.
Was on Augmentin for sinus infection 06/10/23 for 10 days. I confirmed this with her pharmacist.
Not likely the cause of her diarrhea due to length of time in between but since colitis is mild, her symptoms are improving, afebrile, will have her hold off on any antibiotic unless her diarrhea returns. The prescription is at her pharmacy if she
should need it.
Given out pt lab slip and container to give stool sample for C diff and culture.
Pt states she is comfortable. Reviewed CT results with her. Also reviewed and gave her a copy of her Endoscopy result at her request as she hasn't heard results
CT abdomen and pelvis radiology report read:
IMPRESSION:
1. Suspicion for mild colitis with involvement of the descending colon and sigmoid colon.
2. 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
Rx for Augmentin 875 mg BID x 7 days sent to pt pharmacy. To not use unless her diarrhea returns.
She has a prescheduled GI appointment for 09/11 she will keep
<Elena Parker NP - Last Filed: 09/05/23 10:18>
*Critical Care Note
Total Time (30-74mins, 75-104mins- exclusive of procedures): Not Applicable
ED Attending Note
<FINN Marquez - Last Filed: 09/05/23 16:11>
-
Portions of this chart may have been created with voice recognition software.� Occasional wrong word or��sound alike� substitutions may have occurred due to the inherent limitations of voice recognition software.
Discharge Plan
Departure
Patient Disposition: Home (Routine Discharge)
Date of Disposition: 09/04/23
Time of Disposition: 16:58
Patient with high blood pressure during this ER visit?: No
Condition: Good
Discharge Problem:
mild colitis
Instructions: Colitis, Clear Liquid Diet
Prescriptions:
New
amoxicillin-pot clavulanate 875-125 mg tablet
1 tab PO BID Qty: 14 0RF
No Action
clonazepam 0.5 MG tablet
0.5 mg PO HS
potassium chloride 10 MEQ tablet,ER particles/crystals
10 meq PO BID
atorvastatin 20 MG tablet
20 mg PO QPM
cholecalciferol (vitamin D3) 1,000 UNITS tablet
1,000 units PO DAILY
calcium carbonate [Antacid (calcium carbonate)] 1 TABLET tablet,chewable
2 tab PO BID@0800,1730
acetaminophen [Acetaminophen Extra Strength] 500 mg Tablet
500 mg PO Q6HPRN PRN (Reason: back pain)
famotidine 20 mg Tablet
20 mg PO BID
iron 18 mg Tablet
54 mg PO DAILY
Probiotic 15 billion cell Capsule
1 cap PO DAILY
apixaban 5 mg Tablet
5 mg PO BID
gabapentin 300 mg capsule
600 mg PO HS
Spiriva Respimat 2.5 mcg/actuation Mist
2 inh INHALATION R DAILY
furosemide 20 MG tablet
80 mg PO DAILY
levalbuterol tartrate 45 mcg/actuation Hfa Aerosol Inhaler
2 puff INHALATION Q6HPRN PRN (Reason: sob/wheezing)
escitalopram oxalate 10 mg tablet
10 mg PO DAILY
Tyrvaya 0.03 mg/spray spray, metered, non-aerosol
1 spray INTRANASAL DAILY
triamcinolone acetonide 0.1 % Cream
1 applic topical TID PRN (Reason: rash from cardioversion pad ) Qty: 15 0RF
prednisone 20 mg Tablet
40 mg PO DAILY Qty: 6 0RF
pantoprazole 40 mg Tablet,Delayed Release (/Ec)
40 mg PO DAILY Qty: 7 0RF
metoprolol tartrate 25 mg Tablet
25 mg PO BID
diltiazem HCl 120 mg Tablet
120 mg DAILY
Referrals:
Haven Galo MD [Active] - Keep scheduled appt
Lien Sherman CRNP [Family Provider] -
Activity Restrictions/Additional Instructions:
As we discussed, your endoscopy showed gastritis which is inflammation of the stomach but no bleeding or any other worrisome abnormality.
There is a prescription at your pharmacy for Augmentin 875 mg twice daily. Only pick it up and start it if your diarrhea returns
If you can give a stool sample into the container we provided, bring it to the out pt lab with the order slip I gave you.
Keep your appointment with your GI doctor as scheduled on 09/11
Call your GI doctor and make a follow-up appointment.
Clear liquids for 1-2 days then gradually advance your diet as tolerated.
Return here immediately for bloody diarrhea, fever, vomiting or feeling sicker in any way.
Interventions
Interventions:
*Risk Screen - Suicide Last Done: 09/04/23 17:23
*General Assessment Last Done: 09/04/23 17:40
*Neglect/Abuse Screening Last Done: 09/04/23 17:23
ED- Fall Risk Assessment Last Done: 09/04/23 17:41
*ED COVID-19 Vaccine History Last Done: 09/04/23 10:55
*Nursing Disposition Last Done: 09/04/23 17:41
RS-Mbbtfk-Qmqzdtgkof Assessment Last Done: 09/04/23 14:32
Discharge Date and Time
Discharge Date/Time: 09/04/23 17:41
Print Language: NIGERIEN
[2023-09-04] MEDS: NSS 500 IV (15:42)
[2023-09-04 17:16] VITALS: BP 135/74
[2023-09-04] MEDS: AUGMENTIN 875 MG/125 MG 1 TABLET PO (17:20)
== END 2023-09-04 17:41 | disposition home or self-care (01) ==
LOC: EMR 10:39
PROVIDERS: Student in an Organized Health Care Education/Training Program; EMERGENCY PHYSICIAN Emergency Medicine; FAMILY PHYSICIAN Nurse Practitioner
DX: K52.9 Noninfective gastroenteritis and colitis, unspecified (principal); I50.9 Heart failure, unspecified; I11.0 Hypertensive heart disease with heart failure; Z87.891 Personal history of nicotine dependence
CPT/HCPCS: 99284; 74177; 80053; 85025; Q9967

== ENCOUNTER → 2023-09-05 12:03 | Outpatient (REF) | payer MEDICARE, BC, SELFPAY | LOC: REG 12:03 | PROVIDERS: ATTENDING PHYSICIAN Nurse Practitioner | DX: R19.8 Other specified symptoms and signs involving the digestive system and abdomen (principal) | CPT/HCPCS: 87045; 87046; 87324; 87427; 87449 ==

== ENCOUNTER → 2023-11-04 06:38 | Day surgery (SDC) | payer MEDICARE, BC, SELFPAY | LOC: GI 06:38 | PROVIDERS: ATTENDING PHYSICIAN Internal Medicine | DX: Z12.11 Encounter for screening for malignant neoplasm of colon (principal); D12.0 Benign neoplasm of cecum; D12.2 Benign neoplasm of ascending colon; D12.3 Benign neoplasm of transverse colon; D12.4 Benign neoplasm of descending colon; K63.5 Polyp of colon; Z86.010 Personal history of colon polyps | CPT/HCPCS: 45385; 45380; 88305 ==

== ENCOUNTER → 2024-01-10 12:45 | Outpatient (REF) | payer MEDICARE, BC, SELFPAY ==
[2024-01-10 16:21] LABS: ALT (SGPT) 23 U/L (0-35); AST (SGOT) 42 U/L (14-36); Alkaline Phosphatase 120 U/L (38-126); Blood Urea Nitrogen 18 mg/dl (7-17); Calcium 9.2 mg/dl (8.4-10.2); Carbon Dioxide 33 mmol/L (22-30); Chloride 102 mmol/L (98-107); Glucose 90 mg/dl (70-99); Sodium 141 mmol/L (135-145); Total Bilirubin 0.6 mg/dl (0.2-1.3); Total Protein 6.7 g/dl (6.3-8.2); eGFR > 60.00
[2024-01-10 16:28] LABS: % Basophils 0.7 % (0-2); % Eosinophils 2.4 % (0-6); % Immature Granulocytes 0.2 % (0-0.5); % Lymphocytes 12.9 % (20.5-51.1); % Neutrophils 75.8 % (42.2-75.2); Absolute Basophils 0.1 10^3/uL (0-0.2); Absolute Eosinophils 0.2 10^3/uL (0-0.7); Absolute Lymphocytes 1.1 10^3/uL (1.2-3.4); Absolute Monocytes 0.7 10^3/uL (0.1-0.6); Absolute Neutrophils 6.2 10^3/uL (1.4-6.5); Hematocrit 42.9 % (37.0-47.0); Hemoglobin 13.4 g/dL (12.0-16.0); Mean Corp Hgb Conc. 31.2 g/dL (33.0-37.0); Mean Corpuscular Hgb 28.2 pg (27.0-31.0); Mean Corpuscular Volume 90.3 fL (81.0-99.0); Mean Platelet Volume 10.4 fL (7.4-10.4); Nucleated Red Blood Cells % 0 %; Platelet Count 255 10^3/uL (130-400); Red Blood Cell Count 4.75 10^6/uL (4.20-5.40); Red Cell Dist. Width 14.7 % (11.5-14.5); White Blood Cell Count 8.2 10^3/uL (4.8-10.8)
== END ==
LOC: HWRAD 12:45
PROVIDERS: ATTENDING PHYSICIAN Internal Medicine Rheumatology; FAMILY PHYSICIAN Nurse Practitioner
DX: M81.0 Age-related osteoporosis without current pathological fracture (principal); Z51.81 Encounter for therapeutic drug level monitoring
CPT/HCPCS: 36415; 77080; 80053; 85025

== ENCOUNTER → 2024-04-29 12:42 | Outpatient (REF) | payer MEDICARE, BC, SELFPAY | LOC: HWRAD 12:42 | PROVIDERS: ATTENDING PHYSICIAN Nurse Practitioner Adult Health | DX: E78.2 Mixed hyperlipidemia (principal); Z86.73 Personal history of transient ischemic attack (TIA), and cerebral infarction without residual deficits; E21.3 Hyperparathyroidism, unspecified; I48.20 Chronic atrial fibrillation, unspecified; F51.04 Psychophysiologic insomnia; I50.30 Unspecified diastolic (congestive) heart failure; I10 Essential (primary) hypertension; E78.5 Hyperlipidemia, unspecified; R60.0 Localized edema; R09.89 Other specified symptoms and signs involving the circulatory and respiratory systems | CPT/HCPCS: 71046 ==

== ENCOUNTER → 2024-04-30 08:58 | Outpatient (REF) | payer MEDICARE, BC, SELFPAY ==
[2024-04-30 12:28] LABS: % Eosinophils 2.4 % (0-6); % Immature Granulocytes 0.2 % (0-0.5); % Lymphocytes 17.2 % (20.5-51.1); % Monocytes 7.8 % (1.7-9.3); % Neutrophils 71.4 % (42.2-75.2); Absolute Basophils 0.1 10^3/uL (0-0.2); Absolute Eosinophils 0.2 10^3/uL (0-0.7); Absolute Lymphocytes 1.4 10^3/uL (1.2-3.4); Absolute Monocytes 0.7 10^3/uL (0.1-0.6); Absolute Neutrophils 5.9 10^3/uL (1.4-6.5); Hematocrit 47.8 % (37.0-47.0); Hemoglobin 14.8 g/dL (12.0-16.0); Mean Corpuscular Hgb 28.7 pg (27.0-31.0); Mean Corpuscular Volume 92.6 fL (81.0-99.0); Mean Platelet Volume 10.2 fL (7.4-10.4); Nucleated Red Blood Cells % 0 %; Platelet Count 276 10^3/uL (130-400); Red Blood Cell Count 5.16 10^6/uL (4.20-5.40); Red Cell Dist. Width 15.2 % (11.5-14.5); White Blood Cell Count 8.3 10^3/uL (4.8-10.8)
[2024-04-30 12:36] LABS: ALT (SGPT) 18 U/L (0-35); AST (SGOT) 26 U/L (14-36); Albumin 4.2 g/dl (3.5-5.0); Alkaline Phosphatase 133 U/L (38-126); Blood Urea Nitrogen 21 mg/dl (7-17); Calcium 9.7 mg/dl (8.4-10.2); Carbon Dioxide 37 mmol/L (22-30); Chloride 102 mmol/L (98-107); Glucose 96 mg/dl (70-99); HDL Cholesterol 88 mg/dl; LDL Cholesterol, Calculated 63 mg/dl; Potassium 4.3 mmol/L (3.5-5.1); Sodium 145 mmol/L (135-145); Total Bilirubin 0.7 mg/dl (0.2-1.3); Total Cholesterol 169 mg/dl (50-199); Total Protein 7.2 g/dl (6.3-8.2); Triglyceride 91 mg/dl (10-149); Very Low Density Lipoprotein 18 mg/dl (0-30)
[2024-04-30 12:54] LABS: Vitamin D, 25-OH*** 58.4 ng/mL (30-80)
[2024-04-30 13:01] LABS: NT-proBNP 244 pg/ml
[2024-04-30 13:08] LABS: TSH Reflex To Free T4 4.66 uIU/ml (0.47-4.68)
== END ==
LOC: HWLAB 08:58
PROVIDERS: ATTENDING PHYSICIAN Nurse Practitioner Adult Health
DX: E78.2 Mixed hyperlipidemia (principal); Z86.73 Personal history of transient ischemic attack (TIA), and cerebral infarction without residual deficits; E21.3 Hyperparathyroidism, unspecified; I48.20 Chronic atrial fibrillation, unspecified; F51.04 Psychophysiologic insomnia; I50.30 Unspecified diastolic (congestive) heart failure; I10 Essential (primary) hypertension; E78.5 Hyperlipidemia, unspecified
CPT/HCPCS: 36415; 80053; 80061; 82306; 83880; 84443; 85025

== ENCOUNTER → 2024-05-13 13:17 | Outpatient (REF) | payer MEDICARE, BC, SELFPAY | LOC: HWWDC 13:17 | PROVIDERS: ATTENDING PHYSICIAN Nurse Practitioner Adult Health | DX: Z12.31 Encounter for screening mammogram for malignant neoplasm of breast (principal) | CPT/HCPCS: 77063; 77067 ==

== ENCOUNTER → 2024-08-25 13:57 | Outpatient (REF) | payer MEDICARE, BC, SELFPAY | LOC: HWRAD 13:57 | PROVIDERS: ATTENDING PHYSICIAN Physician Assistant; FAMILY PHYSICIAN Nurse Practitioner Adult Health | DX: M25.552 Pain in left hip (principal); M25.562 Pain in left knee; M79.652 Pain in left thigh | CPT/HCPCS: 73502; 73552; 73560 ==

== ENCOUNTER → 2024-10-01 11:47 | Outpatient (REF) | payer MEDICARE, BC, SELFPAY ==
[2024-10-01 16:49] LABS: ALT (SGPT) 10 U/L (0-35); AST (SGOT) 18 U/L (14-36); Albumin 3.6 g/dl (3.5-5.0); Alkaline Phosphatase 111 U/L (38-126); Blood Urea Nitrogen 17 mg/dl (7-17); Calcium 9.2 mg/dl (8.4-10.2); Carbon Dioxide 34 mmol/L (22-30); Chloride 102 mmol/L (98-107); Glucose 88 mg/dl (70-99); Potassium 4.3 mmol/L (3.5-5.1); Sodium 142 mmol/L (135-145); Total Bilirubin 0.7 mg/dl (0.2-1.3); Total Protein 6.6 g/dl (6.3-8.2); eGFR > 60.00
[2024-10-01 17:12] LABS: Vitamin D, 25-OH*** 62.1 ng/mL (30-80)
== END ==
LOC: HWLAB 11:47
PROVIDERS: ATTENDING PHYSICIAN Physician Assistant; FAMILY PHYSICIAN Physician Assistant Medical
DX: M15.9 Polyosteoarthritis, unspecified (principal); M81.0 Age-related osteoporosis without current pathological fracture; Z51.81 Encounter for therapeutic drug level monitoring
CPT/HCPCS: 36415; 80053; 82306

== ENCOUNTER → 2024-11-03 11:57 | Outpatient (REF) | payer MEDICARE, BC, SELFPAY | LOC: HWRAD 11:57 | PROVIDERS: ATTENDING PHYSICIAN Nurse Practitioner Adult Health | DX: R09.02 Hypoxemia (principal) | CPT/HCPCS: 71046 ==

== ENCOUNTER 2024-11-16 14:00 | Emergency (ER) | payer MEDICARE, BC, SELFPAY ==
[2024-11-16 14:31] LABS: % Basophils 0.9 % (0-2); % Eosinophils 3.6 % (0-6); % Immature Granulocytes 0.4 % (0-0.5); % Lymphocytes 16.3 % (20.5-51.1); % Monocytes 9.5 % (1.7-9.3); % Neutrophils 69.3 % (42.2-75.2); Absolute Basophils 0.1 10^3/uL (0-0.2); Absolute Eosinophils 0.3 10^3/uL (0-0.7); Absolute Lymphocytes 1.1 10^3/uL (1.2-3.4); Absolute Monocytes 0.7 10^3/uL (0.1-0.6); Absolute Neutrophils 4.8 10^3/uL (1.4-6.5); Hematocrit 42.1 % (37.0-47.0); Hemoglobin 13.2 g/dL (12.0-16.0); Mean Corp Hgb Conc. 31.4 g/dL (33.0-37.0); Mean Corpuscular Hgb 28.3 pg (27.0-31.0); Mean Corpuscular Volume 90.1 fL (81.0-99.0); Mean Platelet Volume 9.2 fL (7.4-10.4); Nucleated Red Blood Cells % 0 %; Platelet Count 247 10^3/uL (130-400); Red Blood Cell Count 4.67 10^6/uL (4.20-5.40); White Blood Cell Count 6.9 10^3/uL (4.8-10.8)
[2024-11-16 15:12] LABS: NT-proBNP 353 pg/ml; Troponin I < 0.012 ng/ml
[2024-11-16 15:30] LABS: ALT (SGPT) 14 U/L (0-35); AST (SGOT) 22 U/L (14-36); Alkaline Phosphatase 109 U/L (38-126); Blood Urea Nitrogen 18 mg/dl (7-17); Calcium 9.1 mg/dl (8.4-10.2); Carbon Dioxide 27 mmol/L (22-30); Chloride 108 mmol/L (98-107); Glucose 84 mg/dl (70-99); Potassium 4.3 mmol/L (3.5-5.1); Sodium 143 mmol/L (135-145); Total Bilirubin 0.6 mg/dl (0.2-1.3); Total Protein 6.9 g/dl (6.3-8.2); eGFR > 60.00
[2024-11-16 16:54] VITALS: BMI 34.9
--- NOTE | 2024-11-16 17:06 | ED.GENMED ---
History of Present Illness
General
Chief Complaint: Breathing Problem
Source: patient
Exam Limitations: none
Time Seen by Provider: 11/16/24 16:52
Nursing documentation reviewed up to this point in time: agreed with
History of Present Illness
History of Present Illness:
Note:
CHIEF COMPLAINT(S)
Difficulty breathing and leg swelling.
HISTORY OF PRESENT ILLNESS
The patient is a 17-year-old female with a history of atrial fibrillation and chronic obstructive pulmonary disease (COPD), who presents with difficulty breathing and leg swelling. The patient reports that these symptoms have been progressively
worsening. She currently uses oxygen at home, but only at night. She is prescribed furosemide, 20 mg, which she takes daily. The patient has a history of pulmonary issues requiring drainage and suspects possible fluid retention in her lungs and
legs. She has a pacemaker in place. Her motor rebuilder is involved in her care; they were contacted due to concern for heart failure, but previous B-type natriuretic peptide (BNP) testing did not indicate high levels suggestive of heart failure.
Previous chest X-rays were performed two weeks ago; a new X-ray is scheduled to assess current status.
ADDITIONAL HISTORY OBTAINED FROM SOURCES OTHER THAN THE PATIENT
According to the patient�s motor rebuilder, the respiratory symptoms were concerning, and recent labs do not strongly indicate an exacerbation of heart failure.
CHRONIC MEDICAL CONDITIONS SIGNIFICANTLY AFFECTING CARE
Chronic conditions affecting care: Atrial fibrillation, chronic obstructive pulmonary disease (COPD).
MEDICATIONS
The patient is currently on oxygen therapy at night and furosemide 20 mg orally daily.
DIFFERENTIAL DIAGNOSIS
The Differential Diagnosis includes, in no particular order and is not limited to:
- Exacerbation of Chronic Obstructive Pulmonary Disease (COPD)
- Heart Failure
- Pulmonary Edema
- Pneumonia
- Pleural Effusion
- Atrial Fibrillation
- Acute Kidney Injury (related to diuretics)
- Lower Extremity Edema secondary to Venous Insufficiency
- Anemia
- Obstructive Sleep Apnea (worsening)
PLAN
A chest X-ray will be performed today to assess for any changes or fluid accumulation. Further evaluation and management will be determined based on the X-ray findings and clinical assessment.
CARE-UPDATE
11/16/24 - 20:22
Patients condition has improved after Duoneb administration. Recent chest X-ray and lab results rule out pneumonia and heart failure. She has returned to her baseline oxygen requirement of two liters. The lower extremity swelling is assessed as
likely dependent edema rather than renal failure or CHF. Discharge planned with instructions for follow-up appointments with pulmonology and primary care.
Disposition:
SUMMARY OF ENCOUNTER
The patient is a 17-year-old female with a history of atrial fibrillation and chronic obstructive pulmonary disease (COPD) who presented to the emergency department with complaints of difficulty breathing and leg swelling. There was concern for
possible heart failure; however, previous testing including B-type natriuretic peptide (BNP) did not indicate heart failure. The patient was managed with Duoneb, and her respiratory symptoms improved. A chest X-ray was ordered to assess for changes
or fluid accumulation, and recent results ruled out pneumonia, thyroid hormone imbalance, or heart failure. The patient returned to her baseline oxygen requirement.
DISPOSITION
The patient was discharged home with a diagnosis of COPD exacerbation.
PLAN
Discharge with follow-up appointments scheduled with pulmonology and primary care.
MEDICATION RECONCILIATION
The patient has nebulizers at home and there was no indication for prednisone.
MEDICAL DECISION MAKING
1. Number & Complexity of Problems: Chronic conditions affecting care: Atrial fibrillation, chronic obstructive pulmonary disease (COPD).
2. Data Reviewed: Chest X-ray was performed and reviewed.
3. Risk: Consideration of admission was made due to the complexity of symptoms, but outpatient management was deemed appropriate given the patients stable return to baseline oxygen requirements, reassuring work-up, and planned follow-up.
PATHOLOGIES TO CONSIDER
Pulmonary embolism, given dyspnea and risk factors including potential fluid retention; however, tests ruled out pneumonia and heart failure in this instance.
Past History
Past History
ED Past Medical History: Arrthythmia (Paroxysmal atrial fibrillation), CHF, COPD, CVA (with L facial droop, garbled speech), GERD, HTN, Hypercholesterolemia, Psychiatric (Anxiety, Depression) and Other (Hepatic cyst resection, bile duct leak,
pleural effusion, spinal stenosis, osteopenia, adrenal adenoma, skin cancer, Pneumonia)
ED Past Surgical History: Cholecystectomy, Gynecological and Other (liver cyst removed with portion of liver removed, Pancreatic stents)
Social History
Tobacco: Former smoker
Alcohol: Occasional
Drug: None
Personal:
Living: with family
Employment: Retired
Family History
Family History: Other (Noncontributory)
Phy Exam
Physical Exam
Physical Exam:
Physical Exam
General: no apparent distress, not acutely ill
Neck: supple. no meningeal signs. normal posterior pharynx
Heart: s1/s2 regular rate and rhythm, no murmur. equal radial
pulses.
HEENT: Pupils equal round reactive to light, EOMI
Lungs: no acute respiratory distress. Crackles at bases bilaterally
Abdomen: normal bowel sounds. not tender. no CVAT
Neuro: alert and oriented. no focal neurological deficits cranial nerves II through XII intact
Skin: no rash
Psychiatric: well kept. interactive and cooperative
Extremities: Bilateral tibial edema. no calf tenderness. negative homans. good distal pulses
Scores
Heart Failure Risk
Heart Failure Risk Score: Not Applicable
Course
Orders/Labs/Results
Orders:
Orders
11/16/24 14:00
Electrocardiogram (*1) Urgent
Reason for Study: Shortness of Breath
EKG- Treatment ONCE
11/16/24 14:24
Complete Blood Count/With Diff Urgent
Comprehensive Metabolic Panel Urgent
NT-proBNP Urgent
Troponin I Urgent
11/16/24 16:52
CR Chest - 2 Views Urgent
Comment:
Reason For Exam: short of breath, hypoxia
11/16/24 17:03
Ipratropium/Albuterol Sulfate [Duoneb] 3 ml INH R NOW STA
Abnormal Lab Results
11/16/24
14:24
MCHC 31.4 L g/dL
(33.0-37.0)
RDW 15.0 H %
(11.5-14.5)
Absolute Lymphs (auto) 1.1 L 10^3/uL
(1.2-3.4)
Absolute Monos (auto) 0.7 H 10^3/uL
(0.1-0.6)
Lymphocytes % 16.3 L %
(20.5-51.1)
Monocytes % 9.5 H %
(1.7-9.3)
Chloride 108 H mmol/L
(98-107)
BUN 18 H mg/dl
(7-17)
11/16/24 14:24
11/16/24 14:24
Vital Signs
Initial and Last Documented VS:
Initial Vital Signs
Temp Pulse Resp Pulse Ox
98.4 F 78 26 83
11/16/24 14:07 11/16/24 14:07 11/16/24 14:07 11/16/24 14:07
Last Documented Vital Signs
Temp Pulse Resp BP Pulse Ox
98.4 F 78 21 140/87 94
11/16/24 14:07 11/16/24 20:00 11/16/24 20:00 11/16/24 20:00 11/16/24 20:00
*Pulse Oximetry
SaO2: 96
Nasal Cannula flow liters per minute: 2
Oxygen Mode of Delivery: Room air
Patient hypoxic: no
*Critical Care Note
Total Time (30-74mins, 75-104mins- exclusive of procedures): Not Applicable
ED Attending Note
-
Portions of this chart may have been created with voice recognition software.� Occasional wrong word or��sound alike� substitutions may have occurred due to the inherent limitations of voice recognition software.
Discharge Plan
Departure
Prescriptions:
No Action
clonazepam 0.5 MG tablet
0.5 mg PO HS
potassium chloride 10 MEQ tablet,ER particles/crystals
10 meq PO BID
atorvastatin 20 MG tablet
20 mg PO QPM
cholecalciferol (vitamin D3) 1,000 UNITS tablet
1,000 units PO DAILY
calcium carbonate [Antacid (calcium carbonate)] 1 TABLET tablet,chewable
2 tab PO BID@0800,1730
acetaminophen [Acetaminophen Extra Strength] 500 mg Tablet
500 mg PO Q6HPRN PRN (Reason: back pain)
famotidine 20 mg Tablet
20 mg PO BID
iron 18 mg Tablet
54 mg PO DAILY
Probiotic 15 billion cell Capsule
1 cap PO DAILY
apixaban 5 mg Tablet
5 mg PO BID
gabapentin 300 mg capsule
600 mg PO HS
Spiriva Respimat 2.5 mcg/actuation Mist
2 inh INHALATION R DAILY
furosemide 20 MG tablet
80 mg PO DAILY
levalbuterol tartrate 45 mcg/actuation Hfa Aerosol Inhaler
2 puff INHALATION Q6HPRN PRN (Reason: sob/wheezing)
escitalopram oxalate 10 mg tablet
10 mg PO DAILY
Tyrvaya 0.03 mg/spray spray, metered, non-aerosol
1 spray INTRANASAL DAILY
triamcinolone acetonide 0.1 % Cream
1 applic topical TID PRN (Reason: rash from cardioversion pad ) Qty: 15 0RF
prednisone 20 mg Tablet
40 mg PO DAILY Qty: 6 0RF
pantoprazole 40 mg Tablet,Delayed Release (Dr/Ec)
40 mg PO DAILY Qty: 7 0RF
metoprolol tartrate 25 mg Tablet
25 mg PO BID
diltiazem HCl 120 mg Tablet
120 mg DAILY
amoxicillin-pot clavulanate 875-125 mg tablet
1 tab PO BID Qty: 14 0RF
Referrals:
UNKNOWN - PT DOES,NOT KNOW [Unknown Provider]
Interventions
Interventions:
*Risk Screen - Suicide Last Done: 11/16/24 14:07
*General Assessment Last Done: 11/16/24 17:01
*Neglect/Abuse Screening Last Done: 11/16/24 14:07
*ED- Fall Risk Assessment Last Done: 11/16/24 17:01
*ED COVID-19 Vaccine History Last Done: 11/16/24 17:01
ED- Cardiac Assessment Last Done: 11/16/24 17:01
ED- Pulmonary Assessment Last Done: 11/16/24 17:01
Discharge Date and Time
Print Language: KOREAN
[2024-11-16] MEDS: DUONEB 3 ML INH (17:32)
[2024-11-16 18:19] VITALS: BP 141/108
[2024-11-16 19:01] VITALS: BP 131/73
[2024-11-16 20:00] VITALS: BP 140/87
== END 2024-11-16 20:45 | disposition home or self-care (01) ==
LOC: EMR 14:00
PROVIDERS: Emergency Medicine; EMERGENCY PHYSICIAN Emergency Medicine; FAMILY PHYSICIAN Nurse Practitioner Adult Health
DX: J44.1 Chronic obstructive pulmonary disease with (acute) exacerbation (principal); I48.91 Unspecified atrial fibrillation; E78.00 Pure hypercholesterolemia, unspecified; I11.0 Hypertensive heart disease with heart failure; I50.9 Heart failure, unspecified; Z86.73 Personal history of transient ischemic attack (TIA), and cerebral infarction without residual deficits; Z87.891 Personal history of nicotine dependence; Z95.0 Presence of cardiac pacemaker; Z99.81 Dependence on supplemental oxygen; Z79.899 Other long term (current) drug therapy
CPT/HCPCS: 94640; 99285; 71046; 80053; 83880; 84484; 85025; 93005

== ENCOUNTER 2024-11-19 20:05 | Inpatient (IN) | payer MEDICARE, BC, SELFPAY ==
[2024-11-19 16:58] VITALS: BP 150/94
[2024-11-19 17:07] VITALS: BMI 34.4
[2024-11-19 17:11] VITALS: BP 151/93
--- NOTE | 2024-11-19 17:26 | ED.GENMED ---
History of Present Illness
General
Chief Complaint: Breathing Problem
Time Seen by Provider: 11/19/24 17:09
History of Present Illness
History of Present Illness:
Patient is a 79-year-old woman with history of HFpEF on Lasix, A-fib on anticoagulation, COPD usually on nocturnal 2 L presenting to the emergency department with shortness of breath. Patient states for the past few weeks has been having worsening
shortness of breath and orthopnea as well as bilateral lower extremity swelling. Per chart review she came here few days ago was diagnosed as a COPD exacerbation and discharged. Today she was at her door clamp operator and was found to be 74% on room
air. She was on 80 mg of Lasix but given the edema was sent to the emergency department for admission for diuresis. Patient denies any chest pain. No nausea or vomiting. No hemoptysis unilateral leg swelling recent immobilization. She has been
compliant with both her blood thinner and Lasix.
Past History
Past History
ED Past Medical History: Arrthythmia (Paroxysmal atrial fibrillation), CHF, COPD, CVA (with L facial droop, garbled speech), GERD, HTN, Hypercholesterolemia, Psychiatric (Anxiety, Depression) and Other (Hepatic cyst resection, bile duct leak,
pleural effusion, spinal stenosis, osteopenia, adrenal adenoma, skin cancer, Pneumonia)
ED Past Surgical History: Cholecystectomy, Gynecological and Other (liver cyst removed with portion of liver removed, Pancreatic stents)
Social History
Tobacco: Former smoker
Alcohol: Occasional
Drug: None
Personal:
Living: with family
Employment: Retired
Family History
Family History: Other (Noncontributory)
Phy Exam
Physical Exam
Physical Exam:
GENERAL: in no acute distress
HEENT: normocephalic, extraocular movements intact, moist oral mucosa
NECK: normal inspection
RESPIRATORY: no respiratory distress, crackles at bases
CARDIOVASCULAR: regular rate and rhythm
ABDOMEN/: soft, non-distended, non-tender to palpation, no rebound or guarding
EXTREMITIES: non-tender, bilateral lower extremity edema
NEUROLOGIC: awake and alert, moves all extremities
SKIN: warm
Scores
Heart Failure Risk
Heart Failure Risk Score: Not Applicable
History of Stroke or TIA: Yes
History of intubation for respiratory distress: No
Heart rate on ED arrival >/= 110: No
SaO2 <90% on arrival on room air: Yes
HR >/=110 during 3min walk test (or too ill to perform test): Yes
ECG has acute ischemic changes: No
Troponin I or T elevated to HI Level (0.4mg/dL): No
NT-proBNP >/=5,000ng/L (5,000pg/ml): No
Course
Orders/Labs/Results
Orders:
Orders
11/19/24 17:22
Electrocardiogram (*1) Urgent
Reason for Study: Shortness of Breath
EKG- Treatment ONCE
11/19/24 17:23
Complete Blood Count/With Diff Urgent
NT-proBNP Urgent
Troponin I Urgent
11/19/24 17:25
CR Chest - 2 Views Urgent
Comment:
Reason For Exam: rales bases
11/19/24 18:11
Comprehensive Metabolic Panel Urgent
11/19/24 18:15
Furosemide [Lasix] 40 mg IV NOW STA
Abnormal Lab Results
11/19/24
17:23
MCHC 31.9 L g/dL
(33.0-37.0)
RDW 14.9 H %
(11.5-14.5)
Absolute Lymphs (auto) 1.1 L 10^3/uL
(1.2-3.4)
Absolute Monos (auto) 0.7 H 10^3/uL
(0.1-0.6)
Lymphocytes % 15.4 L %
(20.5-51.1)
Monocytes % 9.7 H %
(1.7-9.3)
11/19/24 17:23
Vital Signs
Initial and Last Documented VS:
Initial Vital Signs
Temp Pulse Resp BP Pulse Ox
97.9 F 80 20 150/94 83
11/19/24 16:58 11/19/24 16:58 11/19/24 16:58 11/19/24 16:58 11/19/24 16:58
Last Documented Vital Signs
Temp Pulse Resp BP Pulse Ox
97.9 F 66 16 151/93 97
11/19/24 16:58 11/19/24 17:15 11/19/24 17:15 11/19/24 17:11 11/19/24 17:31
MDM/Problems Addressed
Differential Diagnosis Includes:
79-year-old woman with history of HFpEF, COPD on nocturnal oxygen, A-fib presenting to the emergency department with shortness of breath and worsening leg swelling. On arrival patient is requiring 4 L nasal cannula. She does have crackles at the
bases and significant bilateral lower extremity edema. Concern for heart failure exacerbation. Could be pneumonia though less likely. Will check blood work EKG and chest x-ray. Patient will need admission for IV diuresis.
*Pulse Oximetry
SaO2: 97
Nasal Cannula flow liters per minute: 2
Oxygen Mode of Delivery: Room air
Patient hypoxic: yes
*Critical Care Note
Total Time (30-74mins, 75-104mins- exclusive of procedures): Not Applicable
Update Note
Update Note:
Chest x-ray per my interpretation with pulmonary vascular congestion, fluid in the fissure as well as pleural effusions. Will start IV diuresis. BNP surprisingly is normal. Discussed with hospitalist who accepted patient to their service with CMP
pending.
ED Attending Note
-
Portions of this chart may have been created with voice recognition software.� Occasional wrong word or��sound alike� substitutions may have occurred due to the inherent limitations of voice recognition software.
Discharge Plan
Departure
Patient Disposition: Admit
Date of Disposition: 11/19/24
Time of Disposition: 18:17
Presentation/result/management discussed w/ accepting MD/DO: Hospitalist
Discharge Problem:
CHF exacerbation
Prescriptions:
No Action
clonazepam 0.5 MG tablet
0.5 mg PO HS
potassium chloride 10 MEQ tablet,ER particles/crystals
10 meq PO BID
atorvastatin 20 MG tablet
20 mg PO QPM
cholecalciferol (vitamin D3) 1,000 UNITS tablet
1,000 units PO DAILY
calcium carbonate [Antacid (calcium carbonate)] 1 TABLET tablet,chewable
2 tab PO BID@0800,1730
acetaminophen [Acetaminophen Extra Strength] 500 mg Tablet
500 mg PO Q6HPRN PRN (Reason: back pain)
famotidine 20 mg Tablet
20 mg PO BID
iron 18 mg Tablet
54 mg PO DAILY
Probiotic 15 billion cell Capsule
1 cap PO DAILY
apixaban 5 mg Tablet
5 mg PO BID
gabapentin 300 mg capsule
600 mg PO HS
Spiriva Respimat 2.5 mcg/actuation Mist
2 inh INHALATION R DAILY
furosemide 20 MG tablet
80 mg PO DAILY
levalbuterol tartrate 45 mcg/actuation Hfa Aerosol Inhaler
2 puff INHALATION Q6HPRN PRN (Reason: sob/wheezing)
escitalopram oxalate 10 mg tablet
10 mg PO DAILY
Tyrvaya 0.03 mg/spray spray, metered, non-aerosol
1 spray INTRANASAL DAILY
triamcinolone acetonide 0.1 % Cream
1 applic topical TID PRN (Reason: rash from cardioversion pad ) Qty: 15 0RF
prednisone 20 mg Tablet
40 mg PO DAILY Qty: 6 0RF
pantoprazole 40 mg Tablet,Delayed Release (Dr/Ec)
40 mg PO DAILY Qty: 7 0RF
metoprolol tartrate 25 mg Tablet
25 mg PO BID
diltiazem HCl 120 mg Tablet
120 mg DAILY
amoxicillin-pot clavulanate 875-125 mg tablet
1 tab PO BID Qty: 14 0RF
Referrals:
UNKNOWN - PT DOES,NOT KNOW [Family Provider]
Interventions
Interventions:
*Risk Screen - Suicide Last Done: 11/19/24 16:58
*General Assessment Last Done: 11/19/24 16:58
*Neglect/Abuse Screening Last Done: 11/19/24 16:58
*ED- Fall Risk Assessment Last Done: 11/19/24 17:07
*ED COVID-19 Vaccine History Last Done: 11/19/24 17:07
ED- Cardiac Assessment Last Done: 11/19/24 17:07
ED- Pulmonary Assessment Last Done: 11/19/24 17:07
Discharge Date and Time
Print Language: SLOVEN[place]
[2024-11-19 17:39] LABS: % Eosinophils 3.2 % (0-6); % Immature Granulocytes 0.4 % (0-0.5); % Lymphocytes 15.4 % (20.5-51.1); % Monocytes 9.7 % (1.7-9.3); % Neutrophils 70.3 % (42.2-75.2); Absolute Basophils 0.1 10^3/uL (0-0.2); Absolute Eosinophils 0.2 10^3/uL (0-0.7); Absolute Lymphocytes 1.1 10^3/uL (1.2-3.4); Absolute Monocytes 0.7 10^3/uL (0.1-0.6); Absolute Neutrophils 4.8 10^3/uL (1.4-6.5); Hematocrit 41.7 % (37.0-47.0); Hemoglobin 13.3 g/dL (12.0-16.0); Mean Corp Hgb Conc. 31.9 g/dL (33.0-37.0); Mean Platelet Volume 9.3 fL (7.4-10.4); Nucleated Red Blood Cells % 0 %; Platelet Count 224 10^3/uL (130-400); Red Blood Cell Count 4.58 10^6/uL (4.20-5.40); Red Cell Dist. Width 14.9 % (11.5-14.5); White Blood Cell Count 6.8 10^3/uL (4.8-10.8)
[2024-11-19 17:58] LABS: NT-proBNP 260 pg/ml; Troponin I < 0.012 ng/ml
[2024-11-19 18:16] VITALS: BP 151/73
[2024-11-19] MEDS: LASIX 40 MG IV (18:29)
--- NOTE | 2024-11-19 18:29 | HPS.HSE ---
Family Physician
-
Family Physician: NOT KNOW UNKNOWN - PT DOES
Chief Complaint
-
Shortness of breath, orthopnea, weight gain 7 pounds, leg edema to abdomen
History of Present Illness
79-year-old female with history of COPD on chronic 2 L at night presenting to the ER with shortness of breath over the past several weeks along with orthopnea and bilateral lower extremity swelling to abdomen and 7 pound weight gain over 2 weeks,
despite Lasix 80 mg daily. She reports she was told to use oxygen 24/ 2 weeks ago however her oxygen concentrator did not reach downstairs during the day she only just got the tubing 4 days ago and has been wearing it. She does not have a
portable tank. She was seen by pulmonology today found to be 74% on room air sent to ER for evaluation in the ER she was noted to be 86% on room air. She also had recent sleep study was recommended that she use CPAP however she declined. I
informed patient risk of and stroke due to hypoxia when she sleeps she was unaware of that she states I recommended following up with pulmonology and using CPAP. She denies headache, sore throat fever, chills, chest pain, palpitations, cough,
abdominal pain, nausea, vomiting, diarrhea, urinary symptoms. She is compliant with her Lasix and Eliquis.
She has past medical history COPD with nocturnal O2 2 L, persistent A-fib, atrial flutter, SVT, sick sinus syndrome/cardiac dual-chamber pacemaker, CVA 2016, HTN�benign, chronic systolic heart failure, insomnia, anxiety, Gabriella's
thyroiditis/thyroid nodule, liver cysts, mitral regurg, polycystic liver disease with chronic elevated LFTs,, hepatic cysts with removal 02/2008, 08/2008, 07/2009, hematuria on Xarelto, diverticulosis, colonic polyps restless leg syndrome, history of
MRSA
Medical History
Past Medical History
Past Medical History: Reports Other
Additional Past Medical History:
COPD with nocturnal O2 2 L,
Persistent A-fib
Atrial flutter
SVT
Sick sinus syndrome/cardiac dual-chamber pacemaker
CVA 2017
HTN�benign
Chronic systolic heart failure
Insomnia
Anxiety
Gabriella's thyroiditis/thyroid nodule,
Liver cysts
Mitral regurg
Polycystic liver disease with chronic elevated LFTs
Hepatic cysts with removal 02/2008, 08/2008, 07/2009
Hematuria on Xarelto
Diverticulosis
Colonic polyps restless leg syndrome,
History of MRSA
Past Surgical History: Reports Other
Additional Past Surgical History:
A-fib ablation 07/28/2015, 08/26/2023
Tonsillectomy [address] [facility] for 2017
hepatic cysts with removal 02/2008, 08/2008, 07/2009,
Social History
Tobacco: Former Smoker (34-year 2 pack a day stopped age 64)
Alcohol: None
Drug: None
Personal: Single
Living: Alone
Employment: Retired
Family History
Family History: Other (Father [place] age 70 mother age 75 thyroid cancer)
Allergies / Home Medications
Allergies reflects when Allergies were last updated in [facility].
Home Medications with original date entered in [facility]
Allergy/Medication List:
Allergies
Allergy/AdvReac Type Severity Reaction Status Date / Time
adhesive Allergy Rash Verified 09/04/23 10:55
alendronate sodium (From Allergy Shortness Verified 09/04/23 10:55
Fosamax) of
Breath/CHEST
PAIN
propafenone Allergy Unknown Verified 09/04/23 10:55
Home Medications
potassium chloride 10 mEq tablet,extended release(part/cryst) 10 meq PO BID Electrolyte Repletion 09/12/18
atorvastatin 20 mg tablet 20 mg PO DAILY High cholesterol 10/27/21
calcium carbonate (Antacid (calcium carbonate)) 2 tab PO BID Supplement 10/27/21
acetaminophen 500 mg tablet (Acetaminophen Extra Strength) 500 mg PO Q6HPRN PRN back pain 01/02/22
famotidine 20 mg tablet 20 mg PO BID Gastrointestinal issue 01/02/22
iron 18 mg tablet 54 mg PO DAILY Supplement 01/02/22
apixaban 5 mg tablet 5 mg PO BID Blood clot prevention/tx 02/12/22
furosemide 20 mg tablet 80 mg PO DAILY Fluid retention/Swelling 04/12/22
gabapentin 300 mg capsule 600 mg PO HS Pain 04/12/22
tiotropium bromide 2.5 mcg/actuation mist for inhalation (Spiriva Respimat) 2 inh inhalation R DAILY Lung/breathing issues 04/12/22
escitalopram oxalate 10 mg tablet 10 mg PO DAILY Mental Health/Anxiety 07/12/23
levalbuterol tartrate 45 mcg/actuation aerosol inhaler 1 puff inhalation R DAILY 07/12/23
metoprolol tartrate 25 mg tablet 25 mg PO BID 08/26/23
Lactobac no.2-Bifidobac no.1-S. thermo 112.5 billion cell capsule (Visbiome) 1 cap PO DAILY 11/19/24
cholecalciferol (vitamin D3) 25 mcg (1,000 unit) tablet 25 mcg PO DAILY 11/19/24
denosumab 60 mg/mL subcutaneous syringe (Prolia) 60 mg SC [id number] 11/19/24
diltiazem HCl 240 mg capsule,extended release 24 hr 240 mg PO DAILY 11/19/24
trazodone 50 mg tablet 100 mg PO HS 11/19/24
Review of Systems
-
History Source: Patient
A 12 point ROS was completed and negative except as noted: Yes
Constitutional: Reports Weight Gain (7 pounds past 2 weeks); Denies Fever or Fatigue
EENT: Denies Sore Throat or Runny Nose
Respiratory: Reports Trouble Breathing (Orthopnea, hypoxia on room air); Denies Cough
Cardiac: Denies Chest Pain, Diaphoresis, Palpitations or Syncope
Abdomen/GI: Denies Abdominal Pain, Nausea, Vomiting, Diarrhea, Constipated or Bloody Stools
: Denies Dysuria, Frequency, Flank Pain, Incontinence, Difficulty Voiding or Urgency
Musculoskeletal: Reports Edema (+2 edema bilateral lower legs extending to thighs and abdomen); Denies Joint Pain
Skin: Denies Itching or Rash
Neurological: Denies Dizzy, Headache or Weakness
Endocrine: Reports No Symptoms
Hematologic/Lymphatic: Reports No Symptoms
Psych: Reports Calm
Physical Exam
Vital Signs
Vital Signs
Temp Pulse Resp BP Pulse Ox
97.9 F 63 16 151/73 97
11/19/24 16:58 11/19/24 18:29 11/19/24 17:15 11/19/24 18:29 11/19/24 17:31
Physical Exam
General: Comfortable and Conversant; No Pain, Fever or Chills
HEENT: NormoCephalic, Anicteric, Moist mucous membranes, PERRLA, [place] Conjunctivae, No Ptosis and Oxygen (2 L nasal cannula)
Respiratory: Decreased Breath Sounds (Bilateral lung strickland); No Wheezes, Rales or Rhonchi
Cardiac: S1/S2, Regular Rhythm, Peripheral Edema (+2 edema bilateral lower legs extending to thighs and abdomen) and JVD; No Murmur, Rub or Gallop
GI: Soft, Non Tender, Non Distended, Normal Bowel Sounds and No Hepatosplenomegaly
Genito-urinary: Deferred by me
Musculoskeletal: No Clubbing, No Cyanosis, Edema, Left Lower Extremity (+2 edema bilateral lower legs extending to thighs and abdomen) and Edema, Right Lower Extremity; No Edema, Left Upper Extremity or Edema, Right Upper Extremity
Skin: Warm and Dry; No Rash or Jaundice
Neuro: AO x 3, No Motor Deficits, Nonfocal/grossly intact, Cranial Nerves Intact and No Sensory Deficits; No Slurred Speech, Facial Droop, Tremors or Sedated
Psych: Calm
Laboratory Results
-
11/19/24 17:23
Laboratory Results
Total Bilirubin Cancelled 11/19/24 17:48
AST Cancelled 11/19/24 17:48
ALT Cancelled 11/19/24 17:48
Alkaline Phosphatase Cancelled 11/19/24 17:48
Troponin I < 0.012 ng/ml 11/19/24 17:23
Impression/Plan
-
Impression/plan:
Admit to telemetry
#Acute hypoxic respiratory insufficiency 2/2 CHF
#Acute on chronic systolic CHF with likely new development of diastolic heart failure
86% RA, 97% 2 LNC
-Repeat 2D echo
- Consult cardiology
- IV Lasix 40 mg twice daily
- Consult PT/OT
2D echo 09/26/2021: EF 70% normal LV S LVSF mild LVH moderate pulmonary hypertension with PASP 55 mmHg, severely dilated left/right atrium
#Chronic COPD now 24-hour 2 L dependent�no acute exacerbation
- Was nocturnal dependent 2 L up until 3 days ago
- Continue Spiriva, lev albuterol
- Recommend follow-up outpatient regarding 24-hour 2 L dependent and getting her CPAP
#Sleep apnea
Recently diagnosed but declined CPAP I counseled patient on risk of cardiac arrest/stroke due to hypoxia and stopping breathing she was unaware of risks recommended follow-up with pulmonary to get CPAP machine
#Moderate pulmonary hypertension
PASP 55 mmHg as of September 2021
- Repeat 2D echo
#A-fib/atrial flutter
Status post PVI flutter ablation 08/26/2023
Hematuria on Xarelto
- Continue Eliquis 5 mg twice daily, diltiazem 240 mg mg daily
#SVT
# Sick sinus syndrome/cardiac dual-chamber pacemaker
#CVA 2016
-Continue statin
#HTN�benign
Continue metoprolol tartrate 25 mg twice daily with hold parameters
#GERD
-Continue Pepcid 20 mg twice daily
#Insomnia
- Continue trazodone 100 mg at bedtime
#Anxiety
- Continue Lexapro 10 mg daily
#Gabriella's thyroiditis/thyroid nodule
#restless leg syndrome
- Continue gabapentin 600 mg at bedtime
Other PMH:
Liver cysts
Polycystic liver disease with chronic elevated LFTs
Hepatic cysts with removal 02/2008, 08/2008, 07/2009
Mitral regurg
Diverticulosis
Colonic polyps
History of MRSA
DVT prophylaxis
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
DNR per patient
[2024-11-19 18:52] LABS: ALT (SGPT) 11 U/L (0-35); AST (SGOT) 18 U/L (14-36); Albumin 3.9 g/dl (3.5-5.0); Alkaline Phosphatase 107 U/L (38-126); Blood Urea Nitrogen 18 mg/dl (7-17); Calcium 8.7 mg/dl (8.4-10.2); Carbon Dioxide 34 mmol/L (22-30); Chloride 105 mmol/L (98-107); Estimated Creatinine Clearance 50 ml/min; Glucose 100 mg/dl (70-99); Potassium 4.1 mmol/L (3.5-5.1); Sodium 142 mmol/L (135-145); Total Bilirubin 0.6 mg/dl (0.2-1.3); Total Protein 6.7 g/dl (6.3-8.2)
[2024-11-19 20:00] VITALS: BP 145/75
--- NOTE | 2024-11-19 20:05 | W.PN.UPDATE ---
Update Note
Progress Note Update
This is an addendum to the H&P written by Carlita Spencer on 11/19/2024. �Patient seen and examined independently with [employer] SALESPERSON.
79-year-old female past medical history of persistent atrial fibrillation, tachybradycardia syndrome status post pacemaker, diastolic CHF, COPD on 2 L home oxygen at night, moderate pulmonary hypertension, obstructive sleep apnea, hypertension, CVA,
GERD, anxiety/depression presenting with shortness of breath and orthopnea and lower extremity swelling. �Few days ago was in the ER for COPD exacerbation and discharged. �Hypoxic to 74%.
Cardiac BNP of 260. �Chest x-ray without overt pulmonary edema, report pending.
Patient with acute CHF exacerbation. �40 IV Lasix twice daily. �Check echocardiogram. �Cardiology consulted.�
[2024-11-19 20:53] VITALS: BP 160/82; BMI 33.9
[2024-11-19 21:13] VITALS: BMI 33.8
[2024-11-19] MEDS: KCL PO ×2 (21:31→21:40)
[2024-11-19] MEDS: TUMS CHEWABLE TABLET 200 MG PO (21:31)
[2024-11-19] MEDS: PEPCID PO ×2 (21:31→21:41)
[2024-11-19] MEDS: NEURONTIN 600 MG PO (21:31)
[2024-11-19] MEDS: ELIQUIS 5 MG PO (21:31)
[2024-11-19] MEDS: LOPRESSOR 25 MG PO (21:31)
[2024-11-19] MEDS: DESYREL 100 MG PO (21:31)
[2024-11-19 23:08] VITALS: BP 124/74
[2024-11-20] VITALS (8 sets, daily range): BP systolic 105–137; BP diastolic 66–81; PULSE 68; O2SAT 95–97; BMI 33.8
[2024-11-20 07:16] LABS: % Eosinophils 3.4 % (0-6); % Immature Granulocytes 0.3 % (0-0.5); % Lymphocytes 14.7 % (20.5-51.1); % Monocytes 11.5 % (1.7-9.3); % Neutrophils 69.1 % (42.2-75.2); Absolute Basophils 0.1 10^3/uL (0-0.2); Absolute Eosinophils 0.2 10^3/uL (0-0.7); Absolute Lymphocytes 0.9 10^3/uL (1.2-3.4); Absolute Monocytes 0.7 10^3/uL (0.1-0.6); Absolute Neutrophils 4.2 10^3/uL (1.4-6.5); Hematocrit 39.3 % (37.0-47.0); Hemoglobin 12.4 g/dL (12.0-16.0); Mean Corp Hgb Conc. 31.6 g/dL (33.0-37.0); Mean Corpuscular Hgb 28.6 pg (27.0-31.0); Mean Corpuscular Volume 90.6 fL (81.0-99.0); Mean Platelet Volume 9.1 fL (7.4-10.4); Nucleated Red Blood Cells % 0 %; Platelet Count 207 10^3/uL (130-400); Red Blood Cell Count 4.34 10^6/uL (4.20-5.40); Red Cell Dist. Width 14.6 % (11.5-14.5); White Blood Cell Count 6.1 10^3/uL (4.8-10.8)
[2024-11-20] MEDS: SPIRIVA RESPIMAT 2.5 MCG 2 PUFF INH (07:22)
[2024-11-20] MEDS: ProAIR HFA INHALER 1 PUFF INH (07:22)
[2024-11-20 07:40] LABS: ALT (SGPT) < 10 U/L (0-35); AST (SGOT) 18 U/L (14-36); Albumin 3.4 g/dl (3.5-5.0); Alkaline Phosphatase 95 U/L (38-126); Blood Urea Nitrogen 16 mg/dl (7-17); Calcium 8.4 mg/dl (8.4-10.2); Carbon Dioxide 33 mmol/L (22-30); Chloride 107 mmol/L (98-107); Estimated Creatinine Clearance 62 ml/min; Glucose 81 mg/dl (70-99); Potassium 3.8 mmol/L (3.5-5.1); Sodium 143 mmol/L (135-145); Total Bilirubin 0.6 mg/dl (0.2-1.3); eGFR > 60.00
[2024-11-20] MEDS: VITAMIN D3 (cholecalciferol) 25 MCG PO (09:15)
[2024-11-20] MEDS: LIPITOR 20 MG PO (09:15)
[2024-11-20] MEDS: TUMS CHEWABLE TABLET 200 MG PO ×2 (09:15→21:12)
[2024-11-20] MEDS: LASIX 40 MG IV ×2 (09:15→15:31)
[2024-11-20] MEDS: VISBIOME 1 CAP PO (09:16)
[2024-11-20] MEDS: ELIQUIS 5 MG PO ×2 (09:16→21:12)
[2024-11-20] MEDS: KCL 10 MEQ PO ×2 (09:16→21:12)
[2024-11-20] MEDS: CARDIZEM CD 240 MG PO (09:16)
[2024-11-20] MEDS: LOPRESSOR 25 MG PO ×2 (09:16→21:12)
[2024-11-20] MEDS: LEXAPRO 10 MG PO (09:17)
[2024-11-20] MEDS: PEPCID 20 MG PO ×2 (09:17→21:12)
--- NOTE | 2024-11-20 10:15 | CON.CAR ---
Addendum entered and electronically signed by Sanchez Mora MD 11/20/24 10:47:
79 yo female with chronic HFPEF, COPD/pulm HTN, on home O2, paroxysmal A fib on eliquis, is admitted with hypoxia, weight gain, edema. We are consulted for acute on chronic HFPEF. Exam with RRR, no murmurs, 1+ LE edema. Tele: Ap, Vs 60. Cr 0.8.
Acute on chronic HFPEF. Severe. With pulm HTN, may be cor pulmonale. Check echo. Continue IV lasix, which requires monitoring of labs/tele. To consider torsemide on discharge (take lasix 80mg PO daily at home).
A fib. Apaced. Continue diltiazem and eliquis.
Original Note:
Consultation
Consultation Request
Date/Time Consultation Requested: 11/19/24 7:40p
Date/Time Consultation Performed: 11/20/24 9a
Requesting Provider: FINN Koch
Performing Provider: FINN Mas for Dr. Mora
Reason for Consultation: HFpEF
Medical History
-
Chief Complaint: sob, LE edema
History of Present Illness:
Mrs. Rincon is an 79 yo female with HFpEF, paroxysmal Afib/Atach on Eliquis s/p ablation 01/2022 and redo ablation 08/2023, SSS s/p MDT DC PPM 03/2022, CVA 2017, HTN, pulmonary HTN, and COPD O2 dependent, who presents to the ER with c/o worsened SOB
and LE edema with weight gain of 7 lbs in 2 weeks. She is admitted to the hospitalist service and we are consulted for acute HFpEF. She reports compliance with Lasix 80mg daily at home. She wears O2 2L NC at nighttime only, pulmonary has
recommended oxygen continuously.
Past Medical History
Past Medical History: Other (as above)
Past Surgical History: Cardiac (MDT DC PPM)
Social History
Tobacco: Non-Smoker
Living: Alone
Family History
Family History: CAD (father ID [id number])
Allergies / Home Medications
Allergy/AdvReac Type Severity Reaction Status Date / Time
adhesive Allergy Rash Verified 09/04/23 10:55
alendronate sodium (From Allergy Shortness Verified 09/04/23 10:55
Fosamax) of
Breath/CHEST
PAIN
propafenone Allergy Unknown Verified 09/04/23 10:55
�Medication �Instructions �Recorded �Confirmed �Type
potassium chloride 10 mEq 10 meq PO BID Electrolyte Repletion 09/12/18 11/19/24 History
tablet,extended release(part/cryst)
atorvastatin 20 mg tablet 20 mg PO DAILY High cholesterol 10/27/21 11/19/24 History
calcium carbonate (Antacid 2 tab PO BID Supplement 10/27/21 11/19/24 History
(calcium carbonate))
acetaminophen 500 mg tablet 500 mg PO Q6HPRN PRN back pain 01/02/22 11/19/24 History
(Acetaminophen Extra Strength)
famotidine 20 mg tablet 20 mg PO BID Gastrointestinal issue 01/02/22 11/19/24 History
iron 18 mg tablet 54 mg PO DAILY Supplement 01/02/22 11/19/24 History
apixaban 5 mg tablet 5 mg PO BID Blood clot 02/12/22 11/19/24 History
prevention/tx
furosemide 20 mg tablet 80 mg PO DAILY Fluid 04/12/22 11/19/24 History
retention/Swelling
gabapentin 300 mg capsule 600 mg PO HS Pain 04/12/22 11/19/24 History
tiotropium bromide 2.5 2 inh inhalation R DAILY 04/12/22 11/19/24 History
mcg/actuation mist for inhalation Lung/breathing issues
(Spiriva Respimat)
escitalopram oxalate 10 mg tablet 10 mg PO DAILY Mental 07/12/23 11/19/24 History
Health/Anxiety
levalbuterol tartrate 45 1 puff inhalation R DAILY 07/12/23 11/19/24 History
mcg/actuation aerosol inhaler Lung/Breathing Issues
metoprolol tartrate 25 mg tablet 25 mg PO BID Blood Pressure 08/26/23 11/19/24 History
Lactobac no.2-Bifidobac no.1-S. 1 cap PO DAILY Gastrointestinal 11/19/24 11/19/24 History
thermo 112.5 billion cell capsule Issue
(Visbiome)
cholecalciferol (vitamin D3) 25 25 mcg PO DAILY Supplement 11/19/24 11/19/24 History
mcg (1,000 unit) tablet
denosumab 60 mg/mL subcutaneous 60 mg SC [id number] 11/19/24 11/19/24 History
syringe (Prolia) Osteoporosis/bone loss
diltiazem HCl 240 mg 240 mg PO DAILY Heart 11/19/24 11/19/24 History
capsule,extended release 24 hr Disease/Condition
trazodone 50 mg tablet 100 mg PO HS Sleep 11/19/24 11/19/24 History
Review of Systems
-
History Source: Patient
All other systems: Negative unless noted
Physical Exam
Vital Signs
Temp Pulse Resp BP Pulse Ox
98.4 F 61 16 137/75 94
11/20/24 07:44 11/20/24 09:16 11/20/24 07:44 11/20/24 09:16 11/20/24 09:23
Lab Results
11/20/24 06:48
11/20/24 06:48
Troponin I < 0.012 ng/ml 11/19/24 17:23
Ikf-W-Qbixgjsopio Pept 260 pg/ml 11/19/24 17:23
Physical Exam
General: Well Developed, Well Nourished and No Apparent Distress
HEENT: Normocephalic, Anicteric and Moist Mucous Membranes
Respiratory: Crackles (mild bibasilar), Non Labored Respirations and Other (2L NC)
Cardiac: S1/S2, Regular Rhythm and Peripheral Edema (+1 pitting edema b/l LE)
Breast: Deferred by me
GI: Soft, Non Tender, Non Distended and Normal Bowel Sounds
Rectal: Deferred by Provider
Genito-urinary: No Costovertebral Tender
Musculoskeletal: No Clubbing, No Cyanosis and No Edema
Skin: Warm and Dry
Neuro: AO x 3
Hematologic/Lymphatic: No Lymphadenopathy
Psych: Calm
Impression / Plan
-
HFpEF - acute on chronic.
- volume overloaded on exam.
- agree woth IV Lasix 40mg BID.
- weight down overnight, continue to monitor.
- echo today.
COPD/PHTN - managed by pulmonary.
- on 2L NC oxygen.
- per pulmonary.
Afib - paroxysmal.
- s/p ablation 2021 and redo 2023.
- Apaced on tele.
- PPM check showed Afib episode 08/30/24. will interrogate her PPM.
- continue Eliquis.
HTN - stable on medical therapy, continue.
Data Reviewed
-
EKG: Tracing Personally Visualized and interpreted (Apaced 63 bpm)
Radiology: Report Reviewed by me (CXR: no effusions, no PNA)
Medical Tests (Nuc Med, Echo etc): Report Reviewed by me (GUILLERMO 06/2023: normal LVEF, no thrombus. echo 09/2021: normal LVEF, mild MR, mod/severe TR, PASP 60-65mmHg.)
Labs: Labs Reviewed by me
Old Records: Reviewed
--- NOTE | 2024-11-20 11:54 | W.PN.HOSP.TC ---
Today's Communication/Plan
-
see outlined plan below
Assessment / Plan
Assessment / Plan
Assessment:
Acute on chronic hypoxic respiratory failure
- on 2L Nocturnally in setting of COPD, now using 2-3 L at rest
- wean O2 from daytime; continue baseline nocturnal usage
Acute on chronic HFpEF
- IV Lasix - requires intensive monitoring of I/Os, weights, lytes
- Echo
- CBC cards following
Chronic COPD
- no evidence of acute exacerbation
- on 2L Nocturnally in setting of COPD
- Continue Spiriva, lev albuterol
- Recommend follow-up outpatient regarding chronic O2 and need for CPAP
Sleep apnea
- - Recommend follow-up outpatient regarding chronic O2 and need for CPAP
Moderate pulmonary hypertension
- PASP 55 mmHg as of September 2021
- Repeat 2D echo
A-fib/atrial flutter
Status post PVI flutter ablation 08/26/2023
- continue Eliquis/Cardizem/Lopressor
SVT
Sick sinus syndrome/cardiac dual-chamber pacemaker
CVA 2016
- continue statin
Essential HTN
- continue BB
GERD
- continue Pepcid 20 mg twice daily
Insomnia
- continue trazodone 100 mg at bedtime
Anxiety
- continue Lexapro 10 mg daily
Gabriella's thyroiditis/thyroid nodule
RLS
- continue Gabapentin 600 mg at bedtime
Liver cysts
Polycystic liver disease with chronic elevated LFTs
Hepatic cysts with removal 02/2008, 08/2008, 07/2009
Mitral regurg
Diverticulosis
Colonic polyps
History of MRSA
DVT ppx: Eliquis
Code: DNR/DNI
Anticipated Discharge: > 48 hours
Subjective/Interval History
-
Date of Service: November 20, 2024
resting comfortably, no complaints
on 2L
Objective Data
-
Labs:
Laboratory Results
11/20/24
06:48
WBC 6.1
Hgb 12.4
Hct 39.3
Plt Count 207
Sodium 143
Potassium 3.8
Chloride 107
Carbon Dioxide 33 H
BUN 16
Creatinine 0.8
Glucose 81
Calcium 8.4
Total Bilirubin 0.6
AST 18
ALT < 10
Alkaline Phosphatase 95
Vital Signs:
Vital Signs
Temp Pulse Resp BP Pulse Ox
97.5 F 63 16 120/76 100
11/20/24 11:52 11/20/24 11:52 11/20/24 11:52 11/20/24 11:52 11/20/24 11:52
I&O
11/19/24 11/20/24 11/21/24
06:59 06:59 06:59
Intake Total 0 / 0
Balance 0 / 0
Physical Exam
-
General: No Apparent Distress
HEENT: Normocephalic and Atraumatic
Respiratory: Rales and Decreased Breath Sounds
Cardiac: Regular Rhythm and S1/S2
Musculoskeletal: Edema, Right Lower Extrem and Edema, Left Lower Extrem
Neuro: AO x 3
Hematologic / Lymphatic: No Lymphadenopathy
Psych: Calm
Data Reviewed
-
Total Time Spent with Patient (in minutes): 51
Labs: Labs Reviewed by me
--- NOTE | 2024-11-20 14:02 | CM ---
Met with patient to obtain information for assessment. Patient stated that she lives in a two story home with one step to enter. She described herself as independent with all ADLs, personal care, dressing and bathing. Patient can do household
chores, cooking, cleaning and laundry. She can drive and can get herself to all of her appointments and does all of her own shopping. Patient has had VN in the past and has been to [facility]. She has home o2, a walker and a cane but she only
uses the o2.
Patient has a prescription plan and uses, [facility] for all of her medications.
Patient's PCP is, Karuna Bal.
Plan: Case management will continue to follow and assist with discharge planning. Patient would like to be able to return home when stable for discharge.
[2024-11-20] MEDS: NEURONTIN 600 MG PO (21:11)
[2024-11-20] MEDS: DESYREL 100 MG PO (21:12)
[2024-11-21] MEDS: MELATONIN 5 MG PO (01:19)
[2024-11-21 03:55] VITALS: BP 114/58
[2024-11-21 05:18] LABS: % Basophils 0.6 % (0-2); % Eosinophils 3.3 % (0-6); % Immature Granulocytes 0.4 % (0-0.5); % Lymphocytes 14.7 % (20.5-51.1); % Monocytes 12.1 % (1.7-9.3); % Neutrophils 68.9 % (42.2-75.2); Absolute Eosinophils 0.2 10^3/uL (0-0.7); Absolute Monocytes 0.8 10^3/uL (0.1-0.6); Absolute Neutrophils 4.7 10^3/uL (1.4-6.5); Hematocrit 39.6 % (37.0-47.0); Hemoglobin 12.5 g/dL (12.0-16.0); Mean Corp Hgb Conc. 31.6 g/dL (33.0-37.0); Mean Corpuscular Hgb 28.5 pg (27.0-31.0); Mean Corpuscular Volume 90.2 fL (81.0-99.0); Mean Platelet Volume 9.2 fL (7.4-10.4); Nucleated Red Blood Cells % 0 %; Platelet Count 193 10^3/uL (130-400); Red Blood Cell Count 4.39 10^6/uL (4.20-5.40); Red Cell Dist. Width 14.3 % (11.5-14.5); White Blood Cell Count 6.9 10^3/uL (4.8-10.8)
[2024-11-21 05:44] LABS: ALT (SGPT) < 10 U/L (0-35); AST (SGOT) 20 U/L (14-36); Albumin 3.4 g/dl (3.5-5.0); Alkaline Phosphatase 96 U/L (38-126); Blood Urea Nitrogen 19 mg/dl (7-17); Carbon Dioxide 30 mmol/L (22-30); Chloride 107 mmol/L (98-107); Estimated Creatinine Clearance 62 ml/min; Glucose 74 mg/dl (70-99); Magnesium 2.4 mg/dl (1.6-2.3); Potassium 3.7 mmol/L (3.5-5.1); Sodium 143 mmol/L (135-145); Total Bilirubin 0.6 mg/dl (0.2-1.3); eGFR > 60.00
[2024-11-21 06:00] VITALS: BMI 33.5
[2024-11-21 07:33] VITALS: BP 145/76
[2024-11-21] MEDS: ProAIR HFA INHALER 1 PUFF INH (07:36)
[2024-11-21] MEDS: SPIRIVA RESPIMAT 2.5 MCG 2 PUFF INH (07:36)
[2024-11-21] MEDS: LIPITOR 20 MG PO (07:51)
[2024-11-21] MEDS: LOPRESSOR 25 MG PO ×2 (07:51→19:44)
[2024-11-21] MEDS: LEXAPRO 10 MG PO (07:51)
[2024-11-21] MEDS: LASIX 40 MG IV (07:51)
[2024-11-21] MEDS: KCL 10 MEQ PO ×2 (07:51→19:44)
[2024-11-21] MEDS: CARDIZEM CD 240 MG PO (07:51)
[2024-11-21] MEDS: PEPCID 20 MG PO ×2 (07:51→19:45)
[2024-11-21] MEDS: VISBIOME 1 CAP PO (07:51)
[2024-11-21] MEDS: ELIQUIS 5 MG PO ×2 (07:52→19:44)
[2024-11-21] MEDS: VITAMIN D3 (cholecalciferol) 25 MCG PO (07:52)
[2024-11-21] MEDS: TUMS CHEWABLE TABLET 200 MG PO ×2 (08:06→19:45)
--- NOTE | 2024-11-21 08:49 | W.PN.HOSP.TC ---
Today's Communication/Plan
-
increase Lasix to 80mg BID
d/w Dr. Moar
Assessment / Plan
Assessment / Plan
Assessment:
Acute on chronic hypoxic respiratory failure
- on 2L Nocturnally in setting of COPD, now using 2-3 L at rest
- wean O2 from daytime; continue baseline nocturnal usage
Acute on chronic HFpEF
- IV Lasix - requires intensive monitoring of I/Os, weights, lytes. Increase dose to 80mg BID
- Echo 11/20: Normal biventricular size and systolic function without regional wall motion abnormality. Estimated LVEF 55-60%. Mild/moderate mitral regurgitation. Aortic sclerosis without stenosis. Trace aortic regurgitation.
Mild/moderate tricuspid regurgitation. Severely elevated PASP. Estimated pulmonary artery pressure of 59 mmHg, assuming a right atrial pressure of 8 mmHg. Compared to 09/23/20: MR has progressed from mild to mild/moderate. TR has improved from
moderate to mild/moderate. PASP is stable (prior 60-65 mmHg).
- CBC cards following
Chronic COPD
- no evidence of acute exacerbation
- on 2L Nocturnally in setting of COPD
- Continue Spiriva, lev albuterol
- Recommend follow-up outpatient regarding chronic O2 and need for CPAP
Sleep apnea
- Recommend follow-up outpatient regarding chronic O2 and need for CPAP
Moderate pulmonary hypertension
- PASP 55 mmHg as of September 2021
- PASP is stable (prior 60-65 mmHg) on Echo 11/20
A-fib/atrial flutter
Status post PVI flutter ablation 08/26/2023
- continue Eliquis/Cardizem/Lopressor
SVT
Sick sinus syndrome/cardiac dual-chamber pacemaker
CVA 2016
- continue statin
Essential HTN
- continue BB
GERD
- continue Pepcid 20 mg twice daily
Insomnia
- continue trazodone 100 mg at bedtime
Anxiety
- continue Lexapro 10 mg daily
Gabriella's thyroiditis/thyroid nodule
RLS
- continue Gabapentin 600 mg at bedtime
Liver cysts
Polycystic liver disease with chronic elevated LFTs
Hepatic cysts with removal 02/2008, 08/2008, 07/2009
Mitral regurg
Diverticulosis
Colonic polyps
History of MRSA
DVT ppx: Eliquis
Code: DNR/DNI
Anticipated Discharge: > 48 hours
Subjective/Interval History
-
Date of Service: November 21, 2024
resting comfortably, no complaints
weight down to 91 kg from 92 kg
Objective Data
-
Labs:
Laboratory Results
11/21/24
04:26
WBC 6.9
Hgb 12.5
Hct 39.6
Plt Count 193
Sodium 143
Potassium 3.7
Chloride 107
Carbon Dioxide 30
BUN 19 H
Creatinine 0.8
Glucose 74
Calcium 8.0 L
Total Bilirubin 0.6
AST 20
ALT < 10
Alkaline Phosphatase 96
Vital Signs:
Vital Signs
Temp Pulse Resp BP Pulse Ox
97.7 F 65 16 145/76 95
11/21/24 07:33 11/21/24 07:51 11/21/24 07:39 11/21/24 07:51 11/21/24 07:39
I&O
11/20/24 11/21/24 11/22/24
06:59 06:59 06:59
Intake Total 0 / 0 1200 / 1200
Output Total 1500 / 1500 400 / 400
Balance 0 / 0 -300 / -300 -400 / -400
Physical Exam
-
General: No Apparent Distress
HEENT: Normocephalic and Atraumatic
Respiratory: Negative Wheezes
Cardiac: Regular Rhythm and S1/S2
GI: Soft and Nontender
Genito-urinary: No Costovertebral Tender
Musculoskeletal: Edema, Right Lower Extrem and Edema, Left Lower Extrem
Neuro: AO x 3
Psych: Calm
Data Reviewed
-
Total Time Spent with Patient (in minutes): 51
Labs: Labs Reviewed by me
--- NOTE | 2024-11-21 09:57 | W.PN.CD ---
Today's Communication / Plan
-
increase lasix to 80mg IV bid
Impression / Plan
-
HFpEF - acute on chronic. severe
- volume overloaded on exam.
- echo 11/20: EF 55-60%, mild/mod MR, nl RV, mild/mod TR, PASP 59
- increase lasix to 80mg IV bid, with close monitoring of labs/tele
-when ready for PO, likely will be torsemide 40mg daily
COPD/PHTN - managed by pulmonary
- per pulmonary.
Afib - paroxysmal.
- s/p ablation 2021 and redo 2023.
- Apaced on tele.
- PPM check showed Afib episode 08/30/24
- continue Eliquis 5mg bid
HTN - stable on medical therapy, continue.
Physical Exam
Vital Signs/Labs
Vital Signs
Temp Pulse Resp BP Pulse Ox
97.7 F 65 16 145/76 95
11/21/24 07:33 11/21/24 07:51 11/21/24 07:39 11/21/24 07:51 11/21/24 07:39
11/20/24 11/21/24 11/22/24
06:59 06:59 06:59
Actual Weight 92.193 kg 91.2 kg
11/21/24 04:26
11/21/24 04:26
Magnesium 2.4 mg/dl (1.6-2.3) H 11/21/24 04:26
11/19/24
17:23
Woc-H-Iwfzkxmdorq Pept 260
LAB Results
11/19/24
17:23
Troponin I < 0.012
Physical Exam
Constitutional: No acute distress and Comfortable
Cardiovascular: Rhythm & rate is regular, Pedal edema present, JVD present and Systolic murmur present
Respiratory: Respiratory effort normal and Lungs clear to auscul.
Neuro/Psych: AO x 3
Data Reviewed
-
Date of Service: November 21, 2024
EKG: Other (Tele: Apaced 60)
Labs: Labs Reviewed by me
[2024-11-21 11:13] VITALS: BP 107/59
--- NOTE | 2024-11-21 12:27 | CM ---
Spoke with attending who stated that patient may be cleared for discharge on Saturday. He indicated and put referral in for VN services. Met with patient who is agreeable to VN. She would like for . Will make referral to VN.
Plan: Case management will continue to follow and assist with discharge planning. Home with VN.
[2024-11-21 15:11] VITALS: BP 95/62
[2024-11-21] MEDS: LASIX 80 MG IV (15:54)
[2024-11-21 19:22] VITALS: BP 120/72
[2024-11-21] MEDS: DESYREL 100 MG PO (21:19)
[2024-11-21] MEDS: NEURONTIN 600 MG PO (21:19)
[2024-11-21 23:07] VITALS: BP 110/65
[2024-11-22 03:13] VITALS: BP 113/55
[2024-11-22 05:21] LABS: % Basophils 0.5 % (0-2); % Eosinophils 2.6 % (0-6); % Immature Granulocytes 0.3 % (0-0.5); % Lymphocytes 12.9 % (20.5-51.1); % Monocytes 9.7 % (1.7-9.3); Absolute Eosinophils 0.2 10^3/uL (0-0.7); Absolute Lymphocytes 0.9 10^3/uL (1.2-3.4); Absolute Monocytes 0.7 10^3/uL (0.1-0.6); Absolute Neutrophils 5.4 10^3/uL (1.4-6.5); Hematocrit 38.8 % (37.0-47.0); Hemoglobin 12.1 g/dL (12.0-16.0); Mean Corp Hgb Conc. 31.2 g/dL (33.0-37.0); Mean Corpuscular Hgb 28.3 pg (27.0-31.0); Mean Corpuscular Volume 90.9 fL (81.0-99.0); Mean Platelet Volume 9.5 fL (7.4-10.4); Nucleated Red Blood Cells % 0 %; Platelet Count 203 10^3/uL (130-400); Red Blood Cell Count 4.27 10^6/uL (4.20-5.40); Red Cell Dist. Width 14.6 % (11.5-14.5); White Blood Cell Count 7.3 10^3/uL (4.8-10.8)
[2024-11-22 05:51] LABS: ALT (SGPT) < 10 U/L (0-35); AST (SGOT) 18 U/L (14-36); Albumin 3.2 g/dl (3.5-5.0); Alkaline Phosphatase 93 U/L (38-126); Blood Urea Nitrogen 20 mg/dl (7-17); Calcium 7.9 mg/dl (8.4-10.2); Carbon Dioxide 30 mmol/L (22-30); Chloride 107 mmol/L (98-107); Estimated Creatinine Clearance 62 ml/min; Glucose 82 mg/dl (70-99); Magnesium 2.3 mg/dl (1.6-2.3); Sodium 140 mmol/L (135-145); Total Bilirubin 0.5 mg/dl (0.2-1.3); Total Protein 5.8 g/dl (6.3-8.2); eGFR > 60.00
[2024-11-22 06:00] VITALS: BMI 33.8
[2024-11-22 07:14] VITALS: BP 111/64
[2024-11-22] MEDS: ProAIR HFA INHALER 1 PUFF INH (07:35)
[2024-11-22] MEDS: SPIRIVA RESPIMAT 2.5 MCG 2 PUFF INH (07:36)
[2024-11-22] MEDS: LOPRESSOR 25 MG PO ×2 (08:02→20:19)
[2024-11-22] MEDS: KCL 10 MEQ PO ×2 (08:02→20:19)
[2024-11-22] MEDS: LIPITOR 20 MG PO (08:03)
[2024-11-22] MEDS: CARDIZEM CD 240 MG PO (08:03)
[2024-11-22] MEDS: TUMS CHEWABLE TABLET 200 MG PO ×2 (08:03→20:19)
[2024-11-22] MEDS: LEXAPRO 10 MG PO (08:03)
[2024-11-22] MEDS: VITAMIN D3 (cholecalciferol) 25 MCG PO (08:03)
[2024-11-22] MEDS: PEPCID 20 MG PO ×2 (08:03→20:19)
[2024-11-22] MEDS: VISBIOME 1 CAP PO (08:03)
[2024-11-22] MEDS: ELIQUIS 5 MG PO ×2 (08:03→20:19)
[2024-11-22] MEDS: LASIX 80 MG IV ×2 (08:04→16:36)
--- NOTE | 2024-11-22 08:27 | W.PN.HOSP.TC ---
Today's Communication/Plan
-
IV Lasix continues
attempt to wean O2 during day time
follow I/Os, weights
CHF education
follow CBC cards recs
Assessment / Plan
Assessment / Plan
Assessment:
Acute on chronic hypoxic respiratory failure
- on 2L Nocturnally in setting of COPD, now using 2-3 L at rest
- wean O2 from daytime; continue baseline nocturnal usage
Acute on chronic HFpEF
- IV Lasix - requires intensive monitoring of I/Os, weights, lytes. Increase dose to 80mg BID
- Echo 11/20: Normal biventricular size and systolic function without regional wall motion abnormality. Estimated LVEF 55-60%. Mild/moderate mitral regurgitation. Aortic sclerosis without stenosis. Trace aortic regurgitation.
Mild/moderate tricuspid regurgitation. Severely elevated PASP. Estimated pulmonary artery pressure of 59 mmHg, assuming a right atrial pressure of 8 mmHg. Compared to 09/23/20: MR has progressed from mild to mild/moderate. TR has improved from
moderate to mild/moderate. PASP is stable (prior 60-65 mmHg).
- CBC cards following
Chronic COPD
- no evidence of acute exacerbation
- on 2L Nocturnally in setting of COPD
- Continue Spiriva, levalbuterol
- Recommend follow-up outpatient regarding chronic O2 and need for CPAP
Sleep apnea
- Recommend follow-up outpatient regarding chronic O2 and need for CPAP
Moderate pulmonary hypertension
- PASP 55 mmHg as of September 2021
- PASP is stable (prior 60-65 mmHg) on Echo 11/20
A-fib/atrial flutter
Status post PVI flutter ablation 08/26/2023
- continue Eliquis/Cardizem/Lopressor
SVT
Sick sinus syndrome/cardiac dual-chamber pacemaker
CVA 2016
- continue statin
Essential HTN
- continue BB
GERD
- continue Pepcid 20 mg twice daily
Insomnia
- continue trazodone 100 mg at bedtime
Anxiety
- continue Lexapro 10 mg daily
Gabriella's thyroiditis/thyroid nodule
RLS
- continue Gabapentin 600 mg at bedtime
Liver cysts
Polycystic liver disease with chronic elevated LFTs
Hepatic cysts with removal 02/2008, 08/2008, 07/2009
Mitral regurg
Diverticulosis
Colonic polyps
History of MRSA
DVT ppx: Eliquis
Code: DNR/DNI
Anticipated Discharge: > 48 hours
Subjective/Interval History
-
Date of Service: November 22, 2024
resting comfortably, no complaints at present
Objective Data
-
Labs:
Laboratory Results
11/22/24
04:22
WBC 7.3
Hgb 12.1
Hct 38.8
Plt Count 203
Sodium 140
Potassium 4.0
Chloride 107
Carbon Dioxide 30
BUN 20 H
Creatinine 0.8
Glucose 82
Calcium 7.9 L
Total Bilirubin 0.5
AST 18
ALT < 10
Alkaline Phosphatase 93
Vital Signs:
Vital Signs
Temp Pulse Resp BP Pulse Ox
97.7 F 64 16 111/67 94
11/22/24 07:14 11/22/24 08:04 11/22/24 07:38 11/22/24 08:04 11/22/24 07:38
I&O
11/21/24 11/22/24 11/23/24
06:59 06:59 06:59
Intake Total 1200 / 1200 1280 / 1280
Output Total 1500 / 1500 1425 / 1425
Balance -300 / -300 -145 / -145
Physical Exam
-
General: No Apparent Distress
HEENT: Normocephalic and Atraumatic
Respiratory: Negative Wheezes
Cardiac: Regular Rhythm and S1/S2
GI: Soft
Genito-urinary: No Costovertebral Tender
Musculoskeletal: Edema, Right Lower Extrem and Edema, Left Lower Extrem
Neuro: AO x 3
Psych: Calm
Data Reviewed
-
Total Time Spent with Patient (in minutes): 51
Labs: Labs Reviewed by me
[2024-11-22 11:31] VITALS: BP 123/67
--- NOTE | 2024-11-22 11:51 | W.PN.CD ---
Today's Communication / Plan
-
increased lasix to 80mg IV bid on 11/21, with close monitoring of labs/tele
metolazone 5mg x1 today
Impression / Plan
-
HFpEF - acute on chronic. severe
- volume overloaded on exam.
- echo 11/20: EF 55-60%, mild/mod MR, nl RV, mild/mod TR, PASP 59
- increased lasix to 80mg IV bid on 11/21, with close monitoring of labs/tele
-metolazone 5mg x1 today
-when ready for PO, likely will be torsemide 40mg daily
COPD/PHTN - managed by pulmonary
- per pulmonary.
Afib - paroxysmal.
- s/p ablation 2021 and redo 2023.
- Apaced on tele.
- PPM check showed Afib episode 08/30/24
- continue Eliquis 5mg bid
HTN - stable on medical therapy, continue.
Physical Exam
Vital Signs/Labs
Vital Signs
Temp Pulse Resp BP Pulse Ox
98 F 81 16 123/67 94
11/22/24 11:31 11/22/24 11:31 11/22/24 11:31 11/22/24 11:31 11/22/24 11:31
11/21/24 11/22/24 11/23/24
06:59 06:59 06:59
Actual Weight 91.2 kg 92.079 kg
11/22/24 04:22
11/22/24 04:22
Magnesium 2.3 mg/dl (1.6-2.3) 11/22/24 04:22
11/19/24
17:23
[id number]-Gauwktbmmba Pept 260
LAB Results
11/19/24
17:23
Troponin I < 0.012
Physical Exam
Constitutional: No acute distress and Comfortable
EENT: Moist mucous membranes
Cardiovascular: Rhythm & rate is regular, Systolic murmur absent, Pedal edema present and JVD present
Respiratory: Respiratory effort normal and Lungs clear to auscul.
Neuro/Psych: AO x 3
Data Reviewed
-
Date of Service: November 22, 2024
EKG: Other (Tele: Ap 60s)
Labs: Labs Reviewed by me
[2024-11-22 15:23] VITALS: BP 104/55
[2024-11-22] MEDS: ZAROXOLYN 5 MG PO (16:01)
[2024-11-22 19:14] VITALS: BP 116/68
[2024-11-22] MEDS: NEURONTIN 600 MG PO (21:57)
[2024-11-22] MEDS: DESYREL 100 MG PO (21:57)
[2024-11-22 23:32] VITALS: BP 114/67
[2024-11-23 03:40] VITALS: BP 109/56
[2024-11-23 06:00] VITALS: BMI 33.0
[2024-11-23 07:00] LABS: % Eosinophils 2.7 % (0-6); % Immature Granulocytes 0.4 % (0-0.5); % Lymphocytes 14.4 % (20.5-51.1); % Monocytes 10.2 % (1.7-9.3); % Neutrophils 71.3 % (42.2-75.2); Absolute Basophils 0.1 10^3/uL (0-0.2); Absolute Eosinophils 0.2 10^3/uL (0-0.7); Absolute Monocytes 0.7 10^3/uL (0.1-0.6); Absolute Neutrophils 5.1 10^3/uL (1.4-6.5); Hematocrit 40.1 % (37.0-47.0); Hemoglobin 12.7 g/dL (12.0-16.0); Mean Corp Hgb Conc. 31.7 g/dL (33.0-37.0); Mean Corpuscular Hgb 28.3 pg (27.0-31.0); Mean Corpuscular Volume 89.3 fL (81.0-99.0); Mean Platelet Volume 9.5 fL (7.4-10.4); Nucleated Red Blood Cells % 0 %; Platelet Count 211 10^3/uL (130-400); Red Blood Cell Count 4.49 10^6/uL (4.20-5.40); Red Cell Dist. Width 14.3 % (11.5-14.5); White Blood Cell Count 7.2 10^3/uL (4.8-10.8)
[2024-11-23] MEDS: ProAIR HFA INHALER 1 PUFF INH (07:10)
[2024-11-23] MEDS: SPIRIVA RESPIMAT 2.5 MCG 2 PUFF INH (07:10)
[2024-11-23 07:32] LABS: Blood Urea Nitrogen 21 mg/dl (7-17); Estimated Creatinine Clearance 61 ml/min; Glucose 86 mg/dl (70-99); Sodium 139 mmol/L (135-145); eGFR > 60.00
[2024-11-23 07:33] LABS: ALT (SGPT) 10 U/L (0-35); AST (SGOT) 20 U/L (14-36); Albumin 3.6 g/dl (3.5-5.0); Alkaline Phosphatase 97 U/L (38-126); Calcium 8.7 mg/dl (8.4-10.2); Carbon Dioxide 33 mmol/L (22-30); Chloride 101 mmol/L (98-107); Potassium 3.2 mmol/L (3.5-5.1); Total Bilirubin 0.6 mg/dl (0.2-1.3); Total Protein 6.3 g/dl (6.3-8.2)
[2024-11-23 07:44] VITALS: BP 98/57
--- NOTE | 2024-11-23 08:09 | W.PN.CD ---
Today's Communication / Plan
-
IV lasix today
Start torsemide 40 mg daily tomorrow
OK for d/c later today/tomorrow, pt woudl prefer this evening. We will arrange f/u pls call with questions.
Impression / Plan
-
HFpEF - acute on chronic. severe
- volume overloaded on exam.
- echo 11/20: EF 55-60%, mild/mod MR, nl RV, mild/mod TR, PASP 59
- increased lasix to 80mg IV bid on 11/21, with close monitoring of labs/tele
-when ready for PO, likely will be torsemide 40mg daily
COPD/PHTN - managed by pulmonary
- per pulmonary.
Afib - paroxysmal.
- s/p ablation 2021 and redo 2023.
- Apaced on tele.
- PPM check showed Afib episode 08/30/24
- continue Eliquis 5mg bid
HTN - stable on medical therapy, continue.
Physical Exam
Vital Signs/Labs
Vital Signs
Temp Pulse Resp BP Pulse Ox
98.3 F 61 20 98/57 94
11/23/24 07:44 11/23/24 07:44 11/23/24 07:44 11/23/24 07:44 11/23/24 07:44
11/22/24 11/23/24 11/24/24
06:59 06:59 06:59
Actual Weight 203 lb 198 lb 9 oz
11/23/24 06:36
11/23/24 06:36
Magnesium 2.3 mg/dl (1.6-2.3) 11/22/24 04:22
11/19/24
17:23
Nik-X-Gbwrymtijmn Pept 260
Physical Exam
Constitutional: No acute distress and Comfortable
EENT: Anicteric
Cardiovascular: Rhythm & rate is regular and Pedal edema is absent
Respiratory: Respiratory effort normal and Crackles Present (trace)
GI: Soft
Neuro/Psych: AO x 3
Data Reviewed
-
Date of Service: November 23, 2024
EKG: Tracing Personally Visualized and interpreted (paced)
Echo: Report Reviewed by me
Labs: Labs Reviewed by me
[2024-11-23 08:17] VITALS: BP 108/57
[2024-11-23] MEDS: LOPRESSOR PO (08:18)
[2024-11-23] MEDS: KCL 10 MEQ PO (08:18)
[2024-11-23] MEDS: CARDIZEM CD 240 MG PO (08:18)
[2024-11-23] MEDS: LEXAPRO 10 MG PO (08:18)
[2024-11-23] MEDS: VITAMIN D3 (cholecalciferol) 25 MCG PO (08:19)
[2024-11-23] MEDS: ELIQUIS 5 MG PO (08:19)
[2024-11-23] MEDS: PEPCID 20 MG PO (08:19)
[2024-11-23] MEDS: VISBIOME 1 CAP PO (08:19)
[2024-11-23] MEDS: TUMS CHEWABLE TABLET 200 MG PO (08:19)
[2024-11-23] MEDS: LIPITOR 20 MG PO (08:19)
[2024-11-23] MEDS: LASIX 80 MG IV (08:20)
[2024-11-23] MEDS: KCL 40 MEQ PO (08:34)
--- NOTE | 2024-11-23 09:35 | CM ---
VN referral updated in [facility] for [facility].
Anticipate discharge to home when cleared by Cardiology. Pt currently has O2 in the home.
Plan: Discharge to home with [facility]
--- NOTE | 2024-11-23 10:58 | VNURNOTE ---
Home Health Liaison met with patient at bedside to discuss [facility] nurse/therapy, visits, schedule and homebound status. Patient is agreeable and understands that visits at home will be 2-3 x per week to assess and teach medical management. Patient
confirms she has 02 at home through [employer]. She uses 2L at night. Patient noted to be on room air when this author met her. Patient is aware that [facility] will contact them for start of care in 1-2 days after discharge from .
[facility] referral completed in [facility].
[2024-11-23 11:00] VITALS: BP 111/57
[2024-11-23] MEDS: KCL 20 MEQ PO (12:53)
--- NOTE | 2024-11-23 14:43 | W.PN.HOSP.TC ---
Addendum entered and electronically signed by Manjula Lezama MD 11/24/24 12:38:
Hypokalemia
Original Note:
Today's Communication/Plan
-
dc to home/[facility]
Assessment / Plan
Assessment / Plan
Assessment:
Acute on chronic hypoxic respiratory failure
- on 2L Nocturnally in setting of COPD
- was on 2L during daytime, now weaned off
Acute on chronic HFpEF
- s/p IV Lasix course
- at discharge, transition to torsemide 40 mg daily.
- repeat BMP in 1 week
- Echo 11/20: Normal biventricular size and systolic function without regional wall motion abnormality. Estimated LVEF 55-60%. Mild/moderate mitral regurgitation. Aortic sclerosis without stenosis. Trace aortic regurgitation.
Mild/moderate tricuspid regurgitation. Severely elevated PASP. Estimated pulmonary artery pressure of 59 mmHg, assuming a right atrial pressure of 8 mmHg. Compared to 09/23/20: MR has progressed from mild to mild/moderate. TR has improved from
moderate to mild/moderate. PASP is stable (prior 60-65 mmHg).
- CBC cards following
Chronic COPD
- no evidence of acute exacerbation
- on 2L Nocturnally in setting of COPD
- Continue Spiriva, levalbuterol
- Recommend follow-up outpatient regarding chronic O2 and need for CPAP
Sleep apnea
- Recommend follow-up outpatient regarding chronic O2 and need for CPAP
Moderate pulmonary hypertension
- PASP 55 mmHg as of September 2021
- PASP is stable (prior 60-65 mmHg) on Echo 11/20
A-fib/atrial flutter
Status post PVI flutter ablation 08/26/2023
- continue Eliquis/Cardizem/Lopressor
SVT
Sick sinus syndrome/cardiac dual-chamber pacemaker
CVA 2016
- continue statin
Essential HTN
- continue BB
GERD
- continue Pepcid 20 mg twice daily
Insomnia
- continue trazodone 100 mg at bedtime
Anxiety
- continue Lexapro 10 mg daily
Gabriella's thyroiditis/thyroid nodule
RLS
- continue Gabapentin 600 mg at bedtime
Liver cysts
Polycystic liver disease with chronic elevated LFTs
Hepatic cysts with removal 02/2008, 08/2008, 07/2009
Mitral regurg
Diverticulosis
Colonic polyps
History of MRSA
DVT ppx: Eliquis
Code: DNR/DNI
More than 30 minutes spent in discharge including
Final examination of the patient
Summarizing hospital stay
Instructions for continuing care to all relevant caregivers
Preparation of discharge records, prescriptions, and referral forms
Total time spent (in minutes):41
Anticipated Discharge: Today
Subjective/Interval History
-
Date of Service: November 23, 2024
resting comfortably, no complaints at present
Objective Data
-
Labs:
Laboratory Results
11/23/24
06:36
WBC 7.2
Hgb 12.7
Hct 40.1
Plt Count 211
Sodium 139
Potassium 3.2 L
Chloride 101
Carbon Dioxide 33 H
BUN 21 H
Creatinine 0.8
Glucose 86
Calcium 8.7
Total Bilirubin 0.6
AST 20
ALT 10
Alkaline Phosphatase 97
Vital Signs:
Vital Signs
Temp Pulse Resp BP Pulse Ox
97.6 F 61 18 111/57 96
11/23/24 11:00 11/23/24 11:00 11/23/24 11:00 11/23/24 11:00 11/23/24 11:10
I&O
11/22/24 11/23/24 11/24/24
06:59 06:59 06:59
Intake Total 1280 / 1280 1140 / 1140 660 / 660
Output Total 1425 / 1425 2600 / 2600 1050 / 1050
Balance -145 / -145 -1460 / -1460 -390 / -390
Physical Exam
-
General: No Apparent Distress
HEENT: Normocephalic and Atraumatic
Respiratory: Negative Wheezes
Cardiac: Regular Rhythm and S1/S2
GI: Soft
Genito-urinary: No Costovertebral Tender
Neuro: AO x 3
Hematologic / Lymphatic: No Lymphadenopathy
Psych: Calm
Data Reviewed
-
Total Time Spent with Patient (in minutes): 41
Labs: Labs Reviewed by me
--- NOTE | 2024-11-23 14:54 | W.DS.TRANS ---
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
-
Discharge Instructions:
Discharge Diagnosis/Procedures acute congestive heart failure, hypoxia
Diet 2 Gram Sodium,Restrict fluids to 48 oz
Activity As tolerated
Instructions: *[facility] Heart Failure Instructions
Stand-Alone Forms:
Changes to Home Medications: No
Discharge Medications:
DC Medications w/original date entered in [employer]
potassium chloride 10 mEq tablet,extended release(part/cryst) 10 meq PO BID Electrolyte Repletion 09/12/18
atorvastatin 20 mg tablet 20 mg PO DAILY High cholesterol 10/27/21
calcium carbonate (Antacid (calcium carbonate)) 2 tab PO BID Supplement 10/27/21
acetaminophen 500 mg tablet (Acetaminophen Extra Strength) 500 mg PO Q6HPRN PRN back pain 01/02/22
famotidine 20 mg tablet 20 mg PO BID Gastrointestinal issue 01/02/22
iron 18 mg tablet 54 mg PO DAILY Supplement 01/02/22
apixaban 5 mg tablet 5 mg PO BID Blood clot prevention/tx 02/12/22
gabapentin 300 mg capsule 600 mg PO HS Pain 04/12/22
tiotropium bromide 2.5 mcg/actuation mist for inhalation (Spiriva Respimat) 2 inh inhalation R DAILY Lung/breathing issues 04/12/22
escitalopram oxalate 10 mg tablet 10 mg PO DAILY Mental Health/Anxiety 07/12/23
levalbuterol tartrate 45 mcg/actuation aerosol inhaler 1 puff inhalation R DAILY Lung/Breathing Issues 07/12/23
metoprolol tartrate 25 mg tablet 25 mg PO BID Blood Pressure 08/26/23
Lactobac no.2-Bifidobac no.1-S. thermo 112.5 billion cell capsule (Visbiome) 1 cap PO DAILY Gastrointestinal Issue 11/19/24
cholecalciferol (vitamin D3) 25 mcg (1,000 unit) tablet 25 mcg PO DAILY Supplement 11/19/24
denosumab 60 mg/mL subcutaneous syringe (Prolia) 60 mg SC [id number] Osteoporosis/bone loss 11/19/24
diltiazem HCl 240 mg capsule,extended release 24 hr 240 mg PO DAILY Heart Disease/Condition 11/19/24
trazodone 50 mg tablet 100 mg PO HS Sleep 11/19/24
torsemide 40 mg tablet 40 mg PO DAILY #30 tabs 11/23/24
Home Medication Changes
Pending Results: No
Total time spent discharging patient (in min): 41
[2024-11-23 15:06] VITALS: BP 106/59
--- NOTE | 2024-11-23 15:11 | CM ---
Pt cleared for discharge to home today with [facility]. Daughter to transport home.
Plan: Discharge to home with [facility]
--- NOTE | 2024-11-24 09:07 | W.HF.CON ---
Heart Failure
- LV Function
Left ventricular function study result: LV Ejection fraction >/= 50%
Ejection Fraction Percentage: 55-60
- ARNI
Patient already on ARNI: No
Heart Failure ARNI Not Indicated: LV Ejection Fraction >/= 40%
- ACEI/ARB
Patient already on ACEI/ARB: No
Heart Failure ACEI/ARB Not Indicated: LV Ejection Fraction > 40%
- Beta Kirti
Patient already on Evidence Based Beta Kriti: No
Heart Failure Evidence Based Beta Kirti Not Indicated: LV Ejection Fraction > 40%
- Mineralocorticord Receptor Antagonist
Patient already on MRA: No
Heart Failure MRA Not Indicated: LV Ejection Fraction > 40%
- SGLT-2 Inhibitor
Patient already on SGLT-2 Inhibitor: No
Heart Failure SGLT-2 Inhibitor Not Indicated: LV Ejection Fraction >40%
- Afib Anticoagulation
Patient already on Anticoagulation for Afib: Yes
- NYHA CHF Classification
NYHA CHF Classification Level: Class III - Symptoms w/ min exertion, interferes w/ nml daily activity (COPD/pulmonary HTN)
- ACC/AHA Stage
ACC/AHA Stage: Stage C: Symptomatic Heart Failure
--- NOTE | 2024-11-24 11:31 | PN.CDI ---
CDI
- -
CDI:
Physician Documentation Request
Admit Date: 11/19/24 20:05
Dear Doctor Teja,
Patient admitted for heart failure.
11/23 Potassium level: 3.2
11/23 Potassium chloride 40 meq PO administered
Based on the above, could you clarify in the progress notes, the appropriate diagnosis, if significant, that supports the above abnormalities and additional evaluation, monitoring and/or treatment rendered:
Hypokalemia
Abnormal lab value insignificant
Other
Use of terms such as suspected, likely, concern for, or probable (associated with a specific diagnosis that is being evaluated, monitored, or treated as if it exists) are acceptable and can be coded in the inpatient setting, when documented at the
time of discharge.
Thank you,
Rema Gan RN, BSN
CDI Specialist
Available via [employer] text
Please use your independent medical judgment in providing your response.
== END 2024-11-23 16:35 | disposition home health service (06) | DRG 291 ==
LOC: 4 EAST ACU 20:05
PROVIDERS: Clinical Nurse Specialist Family Health; ADMITTING PHYSICIAN Hospitalist; ATTENDING PHYSICIAN Internal Medicine; EMERGENCY PHYSICIAN Student in an Organized Health Care Education/Training Program; FAMILY PHYSICIAN Nurse Practitioner Adult Health; OTHER PHYSICIAN Internal Medicine
DX: I11.0 Hypertensive heart disease with heart failure (principal); I50.33 Acute on chronic diastolic (congestive) heart failure; J96.01 Acute respiratory failure with hypoxia; I48.92 Unspecified atrial flutter; I47.10 Supraventricular tachycardia, unspecified; J44.1 Chronic obstructive pulmonary disease with (acute) exacerbation; Q44.6 Cystic disease of liver; I48.0 Paroxysmal atrial fibrillation; I27.20 Pulmonary hypertension, unspecified; K21.9 Gastro-esophageal reflux disease without esophagitis; G47.00 Insomnia, unspecified; F41.9 Anxiety disorder, unspecified; I49.5 Sick sinus syndrome; E06.3 Autoimmune thyroiditis; E04.1 Nontoxic single thyroid nodule; G25.81 Restless legs syndrome; G47.33 Obstructive sleep apnea (adult) (pediatric); I08.1 Rheumatic disorders of both mitral and tricuspid valves; I70.0 Atherosclerosis of aorta; J44.9 Chronic obstructive pulmonary disease, unspecified; K76.89 Other specified diseases of liver; K57.30 Diverticulosis of large intestine without perforation or abscess without bleeding; E87.6 Hypokalemia; Z79.899 Other long term (current) drug therapy; Z86.73 Personal history of transient ischemic attack (TIA), and cerebral infarction without residual deficits; Z87.891 Personal history of nicotine dependence; Z86.14 Personal history of Methicillin resistant Staphylococcus aureus infection; Z86.0100 Personal history of colon polyps, unspecified; Z79.01 Long term (current) use of anticoagulants; Z99.81 Dependence on supplemental oxygen
CPT/HCPCS: 71046; 80053; 83735; 83880; 84484; 85025; 93005; 93306; 94640; 96374; 97116; 97162; 97166; 99285; Q9950

== ENCOUNTER → 2024-11-25 12:14 | Outpatient (REF) | payer MEDICARE, BC, SELFPAY ==
[2024-11-25 16:03] LABS: Blood Urea Nitrogen 46 mg/dl (7-17); Calcium 10.2 mg/dl (8.4-10.2); Carbon Dioxide 39 mmol/L (22-30); Chloride 91 mmol/L (98-107); Glucose 84 mg/dl (70-99); Potassium 3.7 mmol/L (3.5-5.1); Sodium 138 mmol/L (135-145); eGFR 27.96
== END ==
LOC: HWLAB 12:14
PROVIDERS: ATTENDING PHYSICIAN Nurse Practitioner Adult Health
DX: I50.30 Unspecified diastolic (congestive) heart failure (principal); I10 Essential (primary) hypertension
CPT/HCPCS: 36415; 80048

== ENCOUNTER → 2024-11-30 17:31 | Outpatient (REF) | payer MEDICARE, BC, SELFPAY ==
[2024-11-30 18:23] LABS: Blood Urea Nitrogen 29 mg/dl (7-17); Calcium 10.8 mg/dl (8.4-10.2); Carbon Dioxide 37 mmol/L (22-30); Chloride 95 mmol/L (98-107); Glucose 113 mg/dl (70-99); Potassium 4.0 mmol/L (3.5-5.1); Sodium 137 mmol/L (135-145); eGFR 50.48
== END ==
LOC: CLAB 17:31
PROVIDERS: ATTENDING PHYSICIAN Internal Medicine Cardiovascular Disease; FAMILY PHYSICIAN Nurse Practitioner Adult Health
DX: N17.9 Acute kidney failure, unspecified (principal)
CPT/HCPCS: 36415; 80048

== ENCOUNTER → 2024-12-07 17:12 | Outpatient (REF) | payer MEDICARE, BC, SELFPAY ==
[2024-12-07 18:18] LABS: Blood Urea Nitrogen 20 mg/dl (7-17); Calcium 8.5 mg/dl (8.4-10.2); Carbon Dioxide 33 mmol/L (22-30); Chloride 102 mmol/L (98-107); Glucose 104 mg/dl (70-99); Potassium 4.0 mmol/L (3.5-5.1); Sodium 139 mmol/L (135-145); eGFR 45.48
== END ==
LOC: OLAB 17:12
PROVIDERS: ATTENDING PHYSICIAN Internal Medicine Cardiovascular Disease; FAMILY PHYSICIAN Nurse Practitioner Adult Health
DX: I50.30 Unspecified diastolic (congestive) heart failure (principal); R60.0 Localized edema; I50.1 Left ventricular failure, unspecified; I48.91 Unspecified atrial fibrillation
CPT/HCPCS: 36415; 80048

== ENCOUNTER → 2024-12-15 17:12 | Outpatient (REF) | payer MEDICARE, BC, SELFPAY ==
[2024-12-15 17:40] LABS: Urine Character Clear (Clear)
== END ==
LOC: CLAB 17:12
PROVIDERS: ATTENDING PHYSICIAN Nurse Practitioner Adult Health
DX: N39.0 Urinary tract infection, site not specified (principal)
CPT/HCPCS: 81003; 87086

== ENCOUNTER → 2025-01-08 12:52 | Outpatient (REF) | payer MEDICARE, BC, SELFPAY ==
[2025-01-08 16:35] LABS: ALT (SGPT) 12 U/L (0-35); AST (SGOT) 25 U/L (14-36); Albumin 3.9 g/dl (3.5-5.0); Alkaline Phosphatase 102 U/L (38-126); Blood Urea Nitrogen 19 mg/dl (7-17); Calcium 8.8 mg/dl (8.4-10.2); Chloride 100 mmol/L (98-107); Glucose 77 mg/dl (70-99); Magnesium 2.2 mg/dl (1.6-2.3); Potassium 3.9 mmol/L (3.5-5.1); Sodium 139 mmol/L (135-145); Total Protein 6.7 g/dl (6.3-8.2); eGFR 50.48
[2025-01-08 16:43] LABS: Carbon Dioxide 33 mmol/L (22-30)
== END ==
LOC: HWLAB 12:52
PROVIDERS: ATTENDING PHYSICIAN Nurse Practitioner; FAMILY PHYSICIAN Nurse Practitioner Adult Health
DX: I50.32 Chronic diastolic (congestive) heart failure (principal)
CPT/HCPCS: 36415; 80053; 83735

== ENCOUNTER → 2025-01-27 11:12 | Outpatient (REF) | payer MEDICARE, BC, SELFPAY ==
[2025-01-27 17:07] LABS: Blood Urea Nitrogen 20 mg/dl (7-17); Calcium 9.0 mg/dl (8.4-10.2); Carbon Dioxide 37 mmol/L (22-30); Chloride 98 mmol/L (98-107); Glucose 70 mg/dl (70-99); Potassium 4.3 mmol/L (3.5-5.1); Sodium 138 mmol/L (135-145); eGFR 45.48
== END ==
LOC: HWLAB 11:12
PROVIDERS: ATTENDING PHYSICIAN Nurse Practitioner; FAMILY PHYSICIAN Nurse Practitioner Adult Health
DX: N18.31 Chronic kidney disease, stage 3a (principal)
CPT/HCPCS: 36415; 80048

== ENCOUNTER 2025-02-04 06:16 | Day surgery (SDC) | payer MEDICARE, BC, SELFPAY | END 2025-02-04 11:43 | disposition home or self-care (01) | LOC: GI 06:16 | PROVIDERS: ATTENDING PHYSICIAN Internal Medicine | DX: Z12.11 Encounter for screening for malignant neoplasm of colon (principal); D12.0 Benign neoplasm of cecum; K63.5 Polyp of colon; Z86.0100 Personal history of colon polyps, unspecified | CPT/HCPCS: 45380; 88305 ==

== ENCOUNTER → 2025-02-12 10:55 | Outpatient (REF) | payer MEDICARE, BC, SELFPAY | LOC: RAD 10:55 | PROVIDERS: ATTENDING PHYSICIAN Internal Medicine Cardiovascular Disease; FAMILY PHYSICIAN Nurse Practitioner Adult Health | DX: M79.605 Pain in left leg (principal) | CPT/HCPCS: 93922; 93925 ==

== ENCOUNTER → 2025-03-28 22:00 | Outpatient (REF) | payer MEDICARE, BC, SELFPAY | LOC: DHSLP 22:00 | PROVIDERS: ATTENDING PHYSICIAN Internal Medicine Critical Care Medicine; FAMILY PHYSICIAN Nurse Practitioner Adult Health | DX: G47.33 Obstructive sleep apnea (adult) (pediatric) (principal) | CPT/HCPCS: 95806 ==